=== PATIENT | male | born 1975 | race Caucasian/White ===

== ENCOUNTER 2017-04-14 15:37 | Emergency (ER) | payer MEDICARE, MEDICAID ==
--- NOTE | 2017-04-14 17:15 | EDM.PDOC ---
ED HPI GENERAL MEDICAL PROBLEM - General Chief Complaint: Skin Complaint Stated Complaint: RASH ON BACK Time Seen by Provider: 04/14/17 15:54 Source of Information: Reports: Patient History Limitations: Reports: No Limitations - History of Present Illness INITIAL COMMENTS - FREE TEXT/NARRATIVE: The patient presents with a rash to the low back. It is from this buttocks up his low back. He is on some new meds. He has no fever, chills, or cough. He has no chest pain or shortness of breath. He has not fallen. He does soil himself at times and his family notes some feces there at times. He does have some dysuria at times. Onset: Gradual Duration: Day(s): Location: Reports: Back Severity: Mild Improves with: Reports: None Worsens with: Reports: None Associated Symptoms: Reports: No Other Symptoms - Related Data Allergies Allergy/AdvReac Type Severity Reaction Status Date / Time aspartame Allergy Cannot Verified 01/22/15 13:34 Remember raspberry Allergy Cannot Verified 01/22/15 13:35 Remember red dye Allergy Cannot Verified 01/22/15 13:34 Remember Home Meds: Home Meds Cephalexin [Keflex] 500 mg PO Q6HR #28 capsule 04/14/17 [Rx] L.acidoph,Paracasei, B.lactis [Probiotic] 1 cap PO BID 04/14/17 [History] PARoxetine HCl [Paxil] 30 mg PO BEDTIME 04/14/17 [History] Topiramate 25 mg PO BID 04/14/17 [History] buPROPion [buPROPion XL] 150 mg PO DAILY 04/14/17 [History] Past Medical History Psychiatric History: Reports: Anxiety, Depression, Suicidal Ideation Other Psychiatric History: says he wants to and go to see his grandma Social & Family History - Tobacco Use Smoking Status *Q: Never Smoker - Caffeine Use Caffeine Use: Reports: Soda - Recreational Drug Use Recreational Drug Use: No ED ROS GENERAL - Review of Systems Review Of Systems: See Below Constitutional: Reports: No Symptoms HEENT: Reports: No Symptoms Respiratory: Reports: No Symptoms Cardiovascular: Reports: No Symptoms Endocrine: Reports: No Symptoms GI/Abdominal: Reports: No Symptoms : Reports: Dysuria ED EXAM, SKIN/RASH Exam: See Below Exam Limited By: No Limitations General Appearance: Alert, No Apparent Distress Ears: Normal External Exam Nose: Normal Inspection Throat/Mouth: Normal Inspection Head: Atraumatic, Normocephalic Neck: Normal Inspection Respiratory/Chest: No Respiratory Distress, Lungs Clear, Normal Breath Sounds Cardiovascular: Regular Rate, Rhythm, No Edema, No Murmur GI/Abdominal: Soft, Non-Tender, No Organomegaly, No Mass Back Exam: Other (Abrasion to his low back with eryehama.) Course - Vital Signs Last Recorded V/S: Last Vital Signs Temp 98.8 F 04/14/17 15:58 Pulse 124 H 04/14/17 15:58 Resp 20 04/14/17 15:58 BP 135/91 H 04/14/17 15:58 Pulse Ox 97 04/14/17 15:58 - Orders/Labs/Meds Orders: Active Orders 24 hr Category Date Time Status CRP [C-REACTIVE PROTEIN] [CHEM] Stat Lab 04/14/17 16:52 Received UA W/MICROSCOPIC [URIN] Stat Lab 04/14/17 16:16 Ordered Labs: Laboratory Tests 04/14/17 Range/Units 16:52 WBC 5.19 (4.23-9.07) K/mm3 RBC 5.63 (4.63-6.08) M/mm3 Hgb 16.3 (13.7-17.5) gm/L Hct 47.8 (40.1-51.0) % MCV 84.9 (79.0-92.2) fl MCH 29.0 (25.7-32.2) pg MCHC 34.1 (32.2-35.5) g/dl RDW Std Deviation 43.7 (35.1-43.9) fL Plt Count 215 (163-337) K/mm3 MPV 9.8 (9.4-12.3) fl Neut % (Auto) 66.6 (34.0-67.9) % Lymph % (Auto) 16.6 L (21.8-53.1) % [place] % (Auto) 15.8 H (5.3-12.2) % Eos % (Auto) 0.6 L (0.8-7.0) Baso % (Auto) 0.2 (0.1-1.2) % Neut # (Auto) 3.46 (1.78-5.38) K/mm3 Lymph # (Auto) 0.86 L (1.32-3.57) K/mm3 [place] # (Auto) 0.82 (0.30-0.82) K/mm3 Eos # (Auto) 0.03 L (0.04-0.54) K/mm3 Baso # (Auto) 0.01 (0.01-0.08) K/mm3 Manual Slide Review Normal smear - Re-Assessments/Exams Free Text/Narrative Re-Assessment/Exam: 04/14/17 17:12 His CBC looks good. This appears to be cellulitis. I will get him on some keflex and antibiotic ointment. Departure - Departure Time of Disposition: 17:15 Disposition: Home, Self-Care 01 Condition: Good Clinical Impression: Cellulitis Qualifiers: Site of cellulitis: trunk Site of cellulitis of trunk: back Qualified Code(s): L03.312 - Cellulitis of back [any part except buttock] - Discharge Information Prescriptions: Cephalexin [Keflex] 500 mg PO Q6HR #28 capsule Referrals: Maria Luz Brown, DIE REPAIR MACHINIST [Primary Care Provider] - 1 Week Additional Instructions: Take the keflex 4 times per day for 7 days. Clean the area with warm soapy water 2 times per day and apply antibiotic ointment after. Keep taking your meds but call Dr Harmon's office on Sunday. Please return if you are worse. - My Orders Last 24 Hours: My Active Orders 04/14/17 16:16 UA W/MICROSCOPIC [URIN] Stat 04/14/17 16:52 CRP [C-REACTIVE PROTEIN] [CHEM] Stat - Assessment/Plan Last 24 Hours: My Active Orders 04/14/17 16:16 UA W/MICROSCOPIC [URIN] Stat 04/14/17 16:52 CRP [C-REACTIVE PROTEIN] [CHEM] Stat
== END 2017-04-14 17:20 | disposition home or self-care (01) ==
LOC: JD.ED 15:37
DX: L03.312 Cellulitis of back [any part except buttock and flank] (principal); F32.9 Major depressive disorder, single episode, unspecified; F41.9 Anxiety disorder, unspecified; Z91.018 Allergy to other foods; Z79.899 Other long term (current) drug therapy
CPT/HCPCS: 36415; 85025; 86140; 99283

== ENCOUNTER 2017-05-10 20:06 | Emergency (ER) | payer MEDICARE, MEDICAID ==
[2017-05-10] MEDS ORDERED: Ondansetron 4 MG/2 ML SDV IVPUSH ONE (20:33)
[2017-05-10] MEDS ORDERED: HYDROmorphone 0.5 MG/0.5 ML SYRINGE IVPUSH ONE (20:40)
[2017-05-10] MEDS ORDERED: Lidocaine 2% Jelly 10 ML Urojet ONE (20:42)
[2017-05-10] MEDS ORDERED: Sodium Chloride 0.9% 1,000 ML IV SCH (20:45)
--- NOTE | 2017-05-10 20:55 | EDM.PDOC ---
ED HPI GENERAL MEDICAL PROBLEM - General Chief Complaint: Abdominal Pain Stated Complaint: ABDOMINAL PAIN DIARRHEA Time Seen by Provider: 05/10/17 20:16 Source of Information: Reports: Patient, Family (2 brothers, 1 sister) History Limitations: Reports: Other (The patient is cognitively impaired, but one of the brothers and his sister also have difficulty in restraining themselves, all talking at the same time) - History of Present Illness INITIAL COMMENTS - FREE TEXT/NARRATIVE: The patient apparently has chronic upper abdominal pain and chronic constipation. He has had watery diarrhea on and off for the past 2 weeks, and the family reports that he is upper abdomen appears to been distended for the past 1-2 days. He reported some dysuria yesterday, and developed nausea and emesis today. No recent fever. The family reports that the patient underwent a partial small bowel resection around 2012, followed by an abdominal wall herniorrhaphy in mid-2016. The patient's PCP is Maria Luz Brown. His Psychiatrist is Dr. Harmon. Middle Abdomen Pain Score (Numeric/FACES): 6 - Related Data Allergies Allergy/AdvReac Type Severity Reaction Status Date / Time aspartame Allergy Cannot Verified 05/10/17 20:18 Remember raspberry Allergy Cannot Verified 05/10/17 20:18 Remember red dye Allergy Cannot Verified 05/10/17 20:18 Remember Home Meds: Home Meds L.acidoph,Paracasei, B.lactis [Probiotic] 1 cap PO BID 04/14/17 [History] PARoxetine HCl [Paxil] 40 mg PO BEDTIME 04/14/17 [History] buPROPion [buPROPion XL] 300 mg PO DAILY 04/14/17 [History] Cholecalciferol (Vitamin D3) [Vitamin D3] 1,000 unit PO DAILY 05/10/17 [History] Docusate Sodium [Colace] 100 mg PO BID 05/10/17 [History] Gabapentin [Neurontin] 300 mg PO TID 05/10/17 [History] Past Medical History Cardiovascular History: Reports: PVD Musculoskeletal History: Reports: Other (See Below) (Scoliosis) Neurological History: Reports: Seizure (Absence seizures), Other (See Below) ( Congenital hydrocephalus) Psychiatric History: Reports: Anxiety, Depression, Suicidal Ideation 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 ED EXAM, GI/ABD - Physical Exam Exam: See Below Exam Limited By: No Limitations General Appearance: Alert, WD/WN, No Apparent Distress Eyes: Bilateral: Normal Appearance, EOMI Ears: Normal External Exam, Hearing Grossly Normal Nose: Normal Inspection, No Blood Throat/Mouth: Normal Inspection, Normal Lips, Normal Voice, No Airway Compromise Head: Atraumatic, Normocephalic Neck: Normal Inspection, Full Range of Motion Respiratory/Chest: No Respiratory Distress, Lungs Clear, Normal Breath Sounds, No Accessory Muscle Use Cardiovascular: Normal Peripheral Pulses, Regular Rate, Rhythm, No Edema, No Gallop, No JVD, No Murmur, No Rub GI/Abdominal Exam: Soft, No Organomegaly, No Distention, No Abnormal Bruit, No Mass, Tender (possible, midline), Abnormal Bowel Sounds (absent), Hernia ( Midline, associated with midline surgical wound. No incarceration palpated.). No: Rigid (Male) Exam: Deferred Rectal (Males) Exam: Deferred Back Exam: Normal Inspection, Full Range of Motion, NT Extremities: Normal Inspection, Normal Range of Motion, No Pedal Edema, Normal Capillary Refill Neurological: Alert, No Motor/Sensory Deficits Psychiatric: Normal Affect Skin Exam: Warm, Dry, Intact, Normal Color, No Rash Course - Vital Signs Last Recorded V/S: Last Vital Signs Temp 37.3 C 05/10/17 20:13 Pulse 110 H 05/10/17 20:13 Resp 18 05/10/17 20:13 BP 139/79 05/10/17 20:13 Pulse Ox 93 L 05/10/17 20:13 - Orders/Labs/Meds Orders: Active Orders 24 hr Category Date Time Status Abdomen Pelvis w Cont [CT] Stat Exams 05/10/17 20:33 Taken UA W/MICROSCOPIC [URIN] Stat Lab 05/10/17 21:02 Ordered Sodium Chloride 0.9% [Normal Saline] 1,000 ml Med 05/10/17 20:45 Active IV ASDIRECTED Sodium Chloride 0.9% [Saline Flush] Med 05/10/17 22:10 Active 10 ml FLUSH ONETIME PRN Medication Orders Sodium Chloride (Normal Saline) 1,000 mls @ 150 mls/hr IV ASDIRECTED JOSE Last Admin: 05/10/17 20:50 Dose: 150 mls/hr Sodium Chloride (Saline Flush) 10 ml FLUSH ONETIME PRN PRN Reason: IV FLUSH Last Admin: 05/10/17 22:46 Dose: 10 ml Labs: Laboratory Tests 05/10/17 05/10/17 05/10/17 Range/Units 20:50 20:50 21:02 WBC 5.91 (4.23-9.07) K/mm3 RBC 5.17 (4.63-6.08) M/mm3 Hgb 14.9 (13.7-17.5) gm/L Hct 45.4 (40.1-51.0) % MCV 87.8 (79.0-92.2) fl MCH 28.8 (25.7-32.2) pg MCHC 32.8 (32.2-35.5) g/dl RDW Std Deviation 47.0 H (35.1-43.9) fL Plt Count 244 (163-337) K/mm3 MPV 9.3 L (9.4-12.3) fl Neutrophils % (Manual) 89 H (40-60) % Band Neutrophils % 0 (0-10) % Lymphocytes % (Manual) 6 L (20-40) % Atypical Lymphs % 0 % Monocytes % (Manual) 4 (2-10) % Eosinophils % (Manual) 1 (0.8-7.0) % Basophils % (Manual) 0 L (0.2-1.2) Platelet Estimate Adequate RBC Morph Comment Normal Sodium 141 (136-145) mEq/L Potassium 3.9 (3.5-5.1) mEq/L Chloride 100 (98-107) mEq/L Carbon Dioxide 25 (21-32) mEq/L Anion Gap 19.9 H (5-15) BUN 15 (7-18) mg/dL Creatinine 1.1 (0.7-1.3) mg/dL Est Cr Clr Drug Dosing 103.79 mL/min Estimated GFR (MDRD) > 60 (>60) mL/min BUN/Creatinine Ratio 13.6 L (14-18) Glucose 142 H (74-106) mg/dL Calcium 9.6 (8.5-10.1) mg/dL Total Bilirubin 0.9 (0.2-1.0) mg/dL AST 12 L (15-37) U/L ALT 13 L (16-63) U/L Alkaline Phosphatase 84 (46-116) U/L Total Protein 7.9 (6.4-8.2) g/dl Albumin 4.2 (3.4-5.0) g/dl Globulin 3.7 gm/dL Albumin/Globulin Ratio 1.1 (1-2) Lipase 47 L (73-393) U/L Urine Color Yellow (Yellow) Urine Appearance Clear (Clear) Urine pH 5.5 (5.0-8.0) Ur Specific [place] > or = 1.030 (1.005-1.030) Urine Protein 1+ H (Negative) Urine Glucose (UA) Negative (Negative) Urine Ketones 2+ H (Negative) Urine Occult Blood Negative (Negative) Urine Nitrite Negative (Negative) Urine Bilirubin 2+ H (Negative) Urine Urobilinogen 1.0 (0.2-1.0) Ur Leukocyte Esterase Negative (Negative) Urine RBC 0-5 (0-5) /hpf Urine WBC 0-5 (0-5) /hpf Ur Epithelial Cells 0-5 (0-5) /hpf Amorphous Sediment Few H (NOT SEEN) /hpf Urine Bacteria Occasional (FEW) /hpf Urine Mucus Moderate H (FEW) /hpf Meds: Medications Generic Name Dose Route Start Last Admin Trade Name Freq PRN Reason Stop Dose Admin Sodium Chloride 1,000 mls @ 150 mls/hr 05/10/17 20:45 05/10/17 20:50 Normal Saline IV 150 mls/hr ASDIRECTED JOSE Administration Sodium Chloride 10 ml 05/10/17 22:10 05/10/17 22:46 Saline Flush FLUSH 10 ml ONETIME PRN Administration IV FLUSH Discontinued Medications Generic Name Dose Route Start Last Admin Trade Name Freq PRN Reason Stop Dose Admin Diatrizoate Meglum/Diatrizoate Sod 90 ml 05/10/17 22:10 05/10/17 22:46 Gastrografin 37% PO 05/10/17 22:11 90 ml ONETIME ONE Administration Hydromorphone HCl 0.5 mg 05/10/17 20:40 05/10/17 20:50 Dilaudid IVPUSH 05/10/17 20:41 0.5 mg ONETIME ONE Administration Piperacillin Sod/Tazobactam 100 mls @ 200 mls/hr 05/10/17 23:28 05/10/17 23: 36 Sod 4.5 gm/ Sodium Chloride IV 05/10/17 23:57 200 mls/hr ONETIME ONE Administration Iopamidol 125 ml 05/10/17 22:10 05/10/17 22:46 Isovue-300 (61%) IVPUSH 05/10/17 22:11 125 ml ONETIME ONE Administration Lidocaine HCl Confirm 05/10/17 20:42 05/10/17 20:55 Xylocaine 2% Jelly Administered 05/10/17 20:43 10 ml Dose Administration 10 ml .ROUTE .STK-MED ONE Ondansetron HCl 4 mg 05/10/17 20:33 05/10/17 20:50 Zofran IVPUSH 05/10/17 20:34 4 mg ONETIME ONE Administration - Re-Assessments/Exams Free Text/Narrative Re-Assessment/Exam: 05/10/17 23:25 Contacted by the [facility] at 23:18. The has a megacolon, atonic and distended throughout. His cecum measures 13 cm in diameter, his descending colon 10 cm, and his rectum 11 cm. There is wall thickening and pericolonic edema/inflammation. There is inspissated stool in the rectum. The colon is displacing the urinary bladder. There appears to be a postsurgical seroma, but also a possible abdominal wall abscess. The colon will need to be decompressed. 05/10/17 23:29 The family tells me that the patient was given Keflex QID from 04/14/2017 through 04/19/2017 for sialitis of the back. He was given a dose of Imodium on , and another dose yesterday, 05/09/2017. Based on this history, I believe the likelihood of the patient's megacolon being due to C. difficile is low. Over concern for bacterial translocation of the colon, I have ordered Zosyn 4.5 g. 05/10/17 23:46 Case discussed with [facility] surgeon Dr. Tejada at 23:38. He accepts the patient for direct admission. He agrees with Zosyn. The patient will need to be transported by ground, as it is too windy for helicopter, and there are no fixed wings in the area. The CT images have been pushed. 05/11/17 00:02 CT of the abdomen and pelvis with oral and IV contrast is read by [facility] as: 1. Diffusely distended/dilated colon and rectum which is filled with stool ( inspissated in the rectum) and gas, measuring up to 13 cm in diameter, consistent with atonic megacolon with ileus. 2. Colonic and rectal wall thickening with pericolonic and perirectal edema, most significant in the transverse colon and rectum. Question of early pneumatosis coli in the descending colon. The findings are suspicious for proctocolitis and evolving toxic megacolon. 3. Numerous gas-filled and distended small bowel loops measuring up to 3.4 cm in diameter leading to a nondistended segment of the distal ileum. The nondistended segment may be related to spasm. An anatomical stricture in this segment cannot be excluded. 4. A rim-enhancing 3.4 x 1.6 cm fluid collection in the right mid anterior abdominal wall, which may represent an abscess. Additional ventral abdominal wall fluid collection in the supra umbilical location measuring up to 6.4 x 3 cm , likely represent post surgical seromas. 5. No definite pneumatosis intestinalis or portal venous gas. 6. Small amount of ascites in the right inguinal canal. 7. Bilateral basal atelectasis. Departure - Departure Time of Disposition: 23:40 Disposition: DC/Tfer to Acute Hospital 02 Condition: Serious Clinical Impression: Megacolon - Discharge Information Referrals: Maria Luz Brown [employer] CUTTING MACHINE OPERATOR [Primary Care Provider] - - My Orders Last 24 Hours: My Active Orders 05/10/17 20:33 Abdomen Pelvis w Cont [CT] Stat 05/10/17 20:45 Sodium Chloride 0.9% [Normal Saline] 1,000 ml IV ASDIRECTED 05/10/17 21:02 UA W/MICROSCOPIC [URIN] Stat 05/10/17 22:10 Sodium Chloride 0.9% [Saline Flush] 10 ml FLUSH ONETIME PRN - Assessment/Plan Last 24 Hours: My Active Orders 05/10/17 20:33 Abdomen Pelvis w Cont [CT] Stat 05/10/17 20:45 Sodium Chloride 0.9% [Normal Saline] 1,000 ml IV ASDIRECTED 05/10/17 21:02 UA W/MICROSCOPIC [URIN] Stat 05/10/17 22:10 Sodium Chloride 0.9% [Saline Flush] 10 ml FLUSH ONETIME PRN
[2017-05-10] MEDS ORDERED: Sodium Chloride 0.9% 10 ML Syringe FLUSH PRN (22:10)
[2017-05-10] MEDS ORDERED: Diatrizoate Meglumine/Diatrizoate Sodium 37% 120 ML Bottle PO ONE (22:10)
[2017-05-10] MEDS ORDERED: Iopamidol 612 MG/ML 150 ML Bottle IVPUSH ONE (22:10)
[2017-05-10] MEDS ORDERED: Piperacillin/Tazobactam 4.5 GM in Sodium Chloride 0.9% 100 ML IV ONE (23:28)
--- NOTE | 2017-05-11 06:32 | CT ---
CT abdomen and pelvis: Multiple axial sections were obtained from above the dome of the diaphragm inferiorly through the pubic symphysis. Intravenous and oral contrast was utilized. Delayed images were also obtained through the abdomen and pelvis. Comparison: Prior CT abdomen studies of 01/25/15 and 03/23/16 is available. Findings: Mild bibasilar atelectasis is noted. Liver shows no focal parenchymal abnormality. Spleen appears within normal limits. Several surgical clips are seen anterior and slightly inferior to the spleen. Gallbladder contains no calcified gallstones. Increased density seen within the gallbladder most likely representing gallbladder sludge. Pancreas appears somewhat atrophied. Kidneys show symmetric contrast enhancement without hydronephrosis or mass. Delayed images show contrast excretion into both ureters and bladder without evidence of obstruction. Aorta shows no aneurysmal dilatation. No retroperitoneal adenopathy is seen. No pelvic mass or adenopathy is seen. Diffusely dilated and stool-filled colon and rectum are noted. Air-filled small bowel loops are seen which are mildly prominent most likely on an obstipative etiology due to the colonic process. Questionable pneumatosis coli is noted within the rectum. Soft tissue density is identified within the anterior abdominal wall. Two soft tissue abnormalities seen within the subcutaneous fat within the anterior abdominal wall. Largest measures approximately 6.7 cm and smaller measures approximately 3.2 cm. These are most likely due to previous abdominal wall hematomas. Small fluid collection is identified more superiorly within the abdominal wall to the right of midline measuring 3.3 cm most likely due to seroma. Bone window settings were reviewed which show scattered degenerative change within the spine. Impression: 1. Diffusely dilated stool filled colon and rectum. 2. Pneumatosis coli seen within the rectum. Developing toxic megacolon is a possibility. 3. Two soft tissue abnormalities within the anterior abdominal wall most likely representing previous abdominal wall hematomas. Probable seroma slightly more superiorly also within the abdominal wall. 4. Mildly dilated air-filled small bowel most likely on an obstipative basis from the colonic process. Diagnostic code #5 Agree with preliminary report issued by [employer] ([facility] preliminary report dictated on 05/11/17, 12:59 AM Central Time)
== END 2017-05-11 00:32 ==
LOC: JD.ED 20:06
DX: K59.39 Other megacolon (principal); Z88.8 Allergy status to other drugs, medicaments and biological substances; Z91.048 Other nonmedicinal substance allergy status; Z91.018 Allergy to other foods; Z79.899 Other long term (current) drug therapy
CPT/HCPCS: 36415; 74177; 80053; 81001; 83690; 85025; 96361; 96365; 96375; 99285; J1170; J2405; J2543; J7030; J7040; J7050; Q9963; Q9967

== ENCOUNTER 2017-09-12 15:50 | Emergency (ER) | payer MEDICARE, MEDICAID ==
--- NOTE | 2017-09-12 16:14 | EDM.PDOC ---
ED HPI GENERAL MEDICAL PROBLEM - General Chief Complaint: Abdominal Pain Stated Complaint: ABDOMINAL PAIN Time Seen by Provider: 09/12/17 16:14 Source of Information: Reports: Patient - History of Present Illness INITIAL COMMENTS - FREE TEXT/NARRATIVE: Patient was sent here from the walk-in clinic at [place] for evaluation of abdominal pain and questionable deformity to the left side of his abdomen. He is accompanied by 2 staff members from [facility]. Patient states that he has been having the pain for the past several days, he states it comes and goes. No change in eating habits. History of GERD, this wasn't removed improved with starting omeprazole about 6 weeks ago. He denies fever/chills. Denies any loss of appetite. No changes in stool in the colostomy bag. Patient has a history of colectomy 05/17/[address] Lomax at [facility]. 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 Abdominal Pain Score (Numeric/FACES): 10 - Related Data Allergies Allergy/AdvReac Type Severity Reaction Status Date / Time aspartame Allergy Cannot Verified 09/12/17 15:59 Remember raspberry Allergy Cannot Verified 09/12/17 15:59 Remember red dye Allergy Cannot Verified 09/12/17 15:59 Remember Home Meds: Home Meds L.acidoph,Paracasei, B.lactis [Probiotic] 1 cap PO DAILY 04/14/17 [History] PARoxetine HCl [Paxil] 30 mg PO BEDTIME 04/14/17 [History] Cholecalciferol (Vitamin D3) [Vitamin D3] 1,000 unit PO DAILY 05/10/17 [History] Docusate Sodium [Colace] 100 mg PO DAILY PRN 05/10/17 [History] Ferrous Gluconate. 1 tab PO DAILY 09/12/17 [History] Omeprazole 20 mg PO DAILY 09/12/17 [History] Past Medical History Cardiovascular History: Reports: PVD Gastrointestinal History: Reports: Chronic Constipation Musculoskeletal History: Reports: Other (See Below) Other Musculoskeletal History: scoliosis Neurological History: Reports: Seizure, Other (See Below) Other Neuro History: hydrocephalus congenital Psychiatric History: Reports: Anxiety, Depression, Suicidal Ideation Other Psychiatric History: mild MR Hematologic History: Reports: Other (See Below) Other Hematologic History: borderline lycopenia Oncologic (Cancer) History: Reports: Other (See Below) Other Oncologic History: pseudolymphoma - Past Surgical History GI Surgical History: Reports: Colostomy, Hernia, Abdominal, Small Bowel Social & Family History - Tobacco Use Smoking Status *Q: Never Smoker - Caffeine Use Caffeine Use: Reports: None - Living Situation & Occupation Living situation: Reports: Single, Alone, Other ([employer] staff 3X/day) Occupation: Disabled ED ROS GENERAL - Review of Systems Review Of Systems: See Below Constitutional: Denies: Fever, Chills, Malaise, Weakness, Fatigue, Decreased Appetite Respiratory: Reports: No Symptoms Cardiovascular: Reports: No Symptoms GI/Abdominal: Reports: Abdominal Pain, Other (small amount of mucus per rectum x2 today). 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) ED EXAM, GI/ABD - Physical Exam Exam: See Below Exam Limited By: Other (Patient is very social built, in no distress today.) General Appearance: Alert, WD/WN, No Apparent Distress Throat/Mouth: Normal Inspection, Normal Oropharynx Head: Atraumatic, Normocephalic Neck: Normal Inspection Respiratory/Chest: No Respiratory Distress, Lungs Clear, No Accessory Muscle Use Cardiovascular: Regular Rate, Rhythm, No Murmur GI/Abdominal Exam: Soft, Non-Tender, No Mass, Abnormal Bowel Sounds (Hyperactive ), Other (When standing patient has protrusion from the central abdomen symmetric bilaterally.) Neurological: Alert, Oriented Psychiatric: Normal Affect, Normal Mood Skin Exam: Warm, Dry, Intact Lymphatic: No Adenopathy Course - Vital Signs Last Recorded V/S: Last Vital Signs Temp 97.0 F 09/12/17 15:59 Pulse Resp BP 160/63 H 09/12/17 15:59 Pulse Ox - Orders/Labs/Meds Orders: Active Orders 24 hr Category Date Time Status UA W/MICROSCOPIC [URIN] Stat Lab 09/12/17 18:20 Ordered Labs: Laboratory Tests 09/12/17 09/12/17 09/12/17 Range/Units 17:55 17:55 17:55 WBC 3.11 L (4.23-9.07) K/mm3 RBC 5.42 (4.63-6.08) M/mm3 Hgb 12.4 L (13.7-17.5) gm/L Hct 40.4 (40.1-51.0) % MCV 74.5 L (79.0-92.2) fl MCH 22.9 L (25.7-32.2) pg MCHC 30.7 L (32.2-35.5) g/dl RDW Std Deviation 44.8 H (35.1-43.9) fL Plt Count 176 (163-337) K/mm3 MPV 9.7 (9.4-12.3) fl Neutrophils % (Manual) 48 (40-60) % Band Neutrophils % 0 (0-10) % Lymphocytes % (Manual) 39 (20-40) % Atypical Lymphs % 0 % Monocytes % (Manual) 10 (2-10) % Eosinophils % (Manual) 1 (0.8-7.0) % Basophils % (Manual) 2 H (0.2-1.2) Platelet Estimate Adequate Plt Morphology Comment Normal Polychromasia 1+ slight Hypochromasia 1+ slight Poikilocytosis 1+ slight Anisocytosis 1+ slight Microcytosis 1+ slight Macrocytosis 1+ slight RBC Morph Comment Abnormal Sodium 135 L (136-145) mEq/L Potassium 4.2 (3.5-5.1) mEq/L Chloride 101 (98-107) mEq/L Carbon Dioxide 27 (21-32) mEq/L Anion Gap 11.2 (5-15) BUN 20 H (7-18) mg/dL Creatinine 1.0 (0.7-1.3) mg/dL Est Cr Clr Drug Dosing 116.19 mL/min Estimated GFR (MDRD) > 60 (>60) mL/min BUN/Creatinine Ratio 20.0 H (14-18) Glucose 93 (74-106) mg/dL Calcium 8.6 (8.5-10.1) mg/dL Iron 30 L (65-175) ug/dL Total Bilirubin 0.4 (0.2-1.0) mg/dL AST 17 (15-37) U/L ALT 20 (16-63) U/L Alkaline Phosphatase 92 (46-116) U/L C-Reactive Protein < 0.2 (<1.0) mg/dL Total Protein 8.2 (6.4-8.2) g/dl Albumin 3.8 (3.4-5.0) g/dl Globulin 4.4 gm/dL Albumin/Globulin Ratio 0.9 L (1-2) Lipase 84 (73-393) U/L Urine Color (Yellow) Urine Appearance (Clear) Urine pH (5.0-8.0) Ur Specific [place] (1.005-1.030) Urine Protein (Negative) Urine Glucose (UA) (Negative) Urine Ketones (Negative) Urine Occult Blood (Negative) Urine Nitrite (Negative) Urine Bilirubin (Negative) Urine Urobilinogen (0.2-1.0) Ur Leukocyte Esterase (Negative) Urine RBC (0-5) /hpf Urine WBC (0-5) /hpf Ur Epithelial Cells (0-5) /hpf Urine Bacteria (FEW) /hpf Hyaline Casts (0-5) /lpf Urine Mucus (FEW) /hpf /09/22 Range/Units 18:20 WBC (4.23-9.07) K/mm3 RBC (4.63-6.08) M/mm3 Hgb (13.7-17.5) gm/L Hct (40.1-51.0) % MCV (79.0-92.2) fl MCH (25.7-32.2) pg MCHC (32.2-35.5) g/dl RDW Std Deviation (35.1-43.9) fL Plt Count (163-337) K/mm3 MPV (9.4-12.3) fl Neutrophils % (Manual) (40-60) % Band Neutrophils % (0-10) % Lymphocytes % (Manual) (20-40) % Atypical Lymphs % % Monocytes % (Manual) (2-10) % Eosinophils % (Manual) (0.8-7.0) % Basophils % (Manual) (0.2-1.2) Platelet Estimate Plt Morphology Comment Polychromasia Hypochromasia Poikilocytosis Anisocytosis Microcytosis Macrocytosis RBC Morph Comment Sodium (136-145) mEq/L Potassium (3.5-5.1) mEq/L Chloride (98-107) mEq/L Carbon Dioxide (21-32) mEq/L Anion Gap (5-15) BUN (7-18) mg/dL Creatinine (0.7-1.3) mg/dL Est Cr Clr Drug Dosing mL/min Estimated GFR (MDRD) (>60) mL/min BUN/Creatinine Ratio (14-18) Glucose (74-106) mg/dL Calcium (8.5-10.1) mg/dL Iron (65-175) ug/dL Total Bilirubin (0.2-1.0) mg/dL AST (15-37) U/L ALT (16-63) U/L Alkaline Phosphatase (46-116) U/L C-Reactive Protein (<1.0) mg/dL Total Protein (6.4-8.2) g/dl Albumin (3.4-5.0) g/dl Globulin gm/dL Albumin/Globulin Ratio (1-2) Lipase (73-393) U/L Urine Color Yellow (Yellow) Urine Appearance Clear (Clear) Urine pH 6.0 (5.0-8.0) Ur Specific [place] > or = 1.030 (1.005-1.030) Urine Protein Negative (Negative) Urine Glucose (UA) Negative (Negative) Urine Ketones Negative (Negative) Urine Occult Blood Negative (Negative) Urine Nitrite Negative (Negative) Urine Bilirubin Negative (Negative) Urine Urobilinogen 0.2 (0.2-1.0) Ur Leukocyte Esterase Negative (Negative) Urine RBC 0-5 (0-5) /hpf Urine WBC 0-5 (0-5) /hpf Ur Epithelial Cells 0-5 (0-5) /hpf Urine Bacteria Not seen (FEW) /hpf Hyaline Casts 0-5 (0-5) /lpf Urine Mucus Moderate H (FEW) /hpf Meds: Medications Discontinued Medications Generic Name Dose Route Start Last Admin Trade Name Freq PRN Reason Stop Dose Admin Diatrizoate Meglum/Diatrizoate Sod 45 ml 09/12/17 18:07 09/12/17 18:57 Gastrografin 37% PO 09/12/17 18:08 45 ml ONETIME ONE Administration Iopamidol 125 ml 09/12/17 18:07 09/12/17 18:58 Isovue-300 (61%) IVPUSH 09/12/17 18:08 125 ml ONETIME ONE Administration Sodium Chloride 20 ml 09/12/17 18:07 Normal Saline FLUSH 09/12/17 18:08 ONETIME ONE - Re-Assessments/Exams Free Text/Narrative Re-Assessment/Exam: Patient's abdomen is nontender during exam. WBC 3110. CRP <0.2. Hemoglobin improving at 12.4. He will continue on his iron. Mildly increased at 1.0, BUN is 20. CT demonstrates the previous colectomy with colostomy. Peristomal hernia is seen containing nondilated small bowel. Bowel wall thickening within residual rectum is noted. No other abnormality on CT. Recommend increasing fluids, very bland diet over the next few days. If patient continues to report this pain is quite possible it is coming from his hernia so may have to consult with Dr. Lomax for this. 09/12/17 20:37 Departure - Departure Time of Disposition: 19:54 Disposition: Home, Self-Care 01 Condition: Good Clinical Impression: Abdominal pain Qualifiers: Abdominal location: generalized Qualified Code(s): R10.84 - Generalized abdominal pain - Discharge Information Instructions: Abdominal Pain, Adult, [id number] Referrals: Maria Luz Brown [employer] TECHNICIAN [Primary Care Provider] - Forms: ED Department Discharge Additional Instructions: You were evaluated in the emergency room for evaluation of abdominal pain. Your labwork demonstrates no sign of infection. Your anemia is improving. CT demonstrated the hernia near your stoma but no other abnormality. I recommend you have a very bland diet for the next 2 days, no sugar/spice/ dairy. You need to increase your fluid intake. Continue your omeprazole and daily probiotic. Follow-up in the clinic if symptoms should worsen or persist or certainly return to emergency room if needed. - My Orders Last 24 Hours: My Active Orders 09/12/17 18:20 UA W/MICROSCOPIC [URIN] Stat - Assessment/Plan Last 24 Hours: My Active Orders 09/12/17 18:20 UA W/MICROSCOPIC [URIN] Stat
[2017-09-12] MEDS ORDERED: Diatrizoate Meglumine/Diatrizoate Sodium 37% 120 ML Bottle PO ONE (18:07)
[2017-09-12] MEDS ORDERED: Iopamidol 612 MG/ML 150 ML Bottle IVPUSH ONE (18:07)
[2017-09-12] MEDS ORDERED: Sodium Chloride 0.9% 20 ML SDV FLUSH ONE (18:07)
--- NOTE | 2017-09-12 19:24 | CT ---
CT abdomen and pelvis Technique: Multiple axial sections were obtained from the top of the liver inferiorly through the pubic symphysis. Intravenous and oral contrast was utilized. Findings: Previous colectomy is noted with colostomy. Wall thickening is noted within the remaining rectum. There is a peristomal hernia which contains nondilated small bowel. Small subpleural nodule is noted within the right lung base. This is not identified on prior CT exam of 05/10/17 and this is most likely incidental and due to slight atelectasis. Liver shows no focal parenchymal abnormality. Spleen appears within normal limits. Adrenal glands show no nodule. Pancreas is within normal limits. Kidneys show symmetric contrast enhancement without hydronephrosis or mass. Aorta shows no aneurysmal dilatation. No retroperitoneal adenopathy or mesenteric abnormalities are seen. No pelvic mass or adenopathy is seen. No bowel dilatation is appreciated. Delayed images through the bladder show contrast within the distal ureters as well as bladder. Bone window settings were reviewed which shows scattered degenerative change within the spine and mild scoliosis. Impression: 1. Previous colectomy with colostomy. Peristomal hernia is seen containing nondilated small bowel. 2. Bowel wall thickening within the residual rectum is noted. This is likely incidental. 3. Nothing acute is otherwise seen on CT study of the abdomen and pelvis. Diagnostic code #2
== END 2017-09-12 20:00 | disposition home or self-care (01) ==
LOC: JD.ED 15:50
DX: R10.84 Generalized abdominal pain (principal); Z91.018 Allergy to other foods
CPT/HCPCS: 36415; 74177; 80053; 81001; 83540; 83690; 85007; 85027; 86140; 99284; Q9963; Q9967

== ENCOUNTER 2017-10-04 21:34 | Inpatient (IN) | payer MEDICARE, MEDICAID ==
--- NOTE | 2017-10-04 22:33 | EDM.PDOC ---
ED HPI GENERAL MEDICAL PROBLEM - General Chief Complaint: Abdominal Pain Stated Complaint: ABDOMINAL CHECK Time Seen by Provider: 10/04/17 22:28 Source of Information: Reports: Patient History Limitations: Reports: No Limitations - History of Present Illness INITIAL COMMENTS - FREE TEXT/NARRATIVE: Patient is a 42-year-old male with a history of chronic constipation and bowel obstructions requiring total colectomy May 2017. Patient has a ileostomy bag in place with liquid stool present. Family is concerned that the patient complained of abdominal discomfort with decreased hard stool within the bag throughout the course the day. He's vomited twice 2 hours after eating dinner. There was no fecal matter present. Nor any blood present. Staff has noticed as well increased air within the bag. He's had no recent documented fever. Patient does not appear in acute distress during examination. He is acting appropriate per staff and mother. - Related Data Allergies Allergy/AdvReac Type Severity Reaction Status Date / Time aspartame Allergy Cannot Verified 10/05/17 09:00 Remember chloral hydrate Allergy Hyperactivi Verified 10/05/17 09:00 ty raspberry Allergy Cannot Verified 10/05/17 09:00 Remember red dye Allergy Cannot Verified 10/05/17 09:00 Remember Home Meds: Home Meds L.acidoph,Paracasei, B.lactis [Probiotic] 1 cap PO DAILY 04/14/17 [History] PARoxetine HCl [Paxil] 30 mg PO DAILY 04/14/17 [History] Cholecalciferol (Vitamin D3) [Vitamin D3] 1,000 unit PO DAILY 05/10/17 [History] Past Medical History Cardiovascular History: Reports: PVD Gastrointestinal History: Reports: Chronic Constipation Musculoskeletal History: Reports: Other (See Below) Other Musculoskeletal History: scoliosis Neurological History: Reports: Seizure, Other (See Below) Other Neuro History: hydrocephalus congenital Psychiatric History: Reports: Anxiety, Depression, Suicidal Ideation Other Psychiatric History: mild MR Hematologic History: Reports: Other (See Below) Other Hematologic History: borderline lycopenia Oncologic (Cancer) History: Reports: Other (See Below) Other Oncologic History: pseudolymphoma - Past Surgical History GI Surgical History: Reports: Colostomy, Hernia, Abdominal, Small Bowel Social & Family History - Tobacco Use Smoking Status *Q: Never Smoker - Caffeine Use Caffeine Use: Reports: None - Recreational Drug Use Recreational Drug Use: No - Living Situation & Occupation Living situation: Reports: Single, Alone, Other ([employer] staff 3X/day) Occupation: Disabled ED ROS GENERAL - Review of Systems Review Of Systems: See Below Constitutional: Denies: Fever, Chills, Decreased Appetite Respiratory: Reports: No Symptoms Cardiovascular: Reports: No Symptoms GI/Abdominal: Reports: Abdominal Pain, Constipation, Diarrhea, Nausea, Vomiting. Denies: Black Stool, Bloody Stool, Decreased Appetite, Hematemesis, Hematochezia, Melena : Reports: No Symptoms Musculoskeletal: Reports: No Symptoms Neurological: Reports: No Symptoms ED EXAM, GI/ABD - Physical Exam Exam: See Below Exam Limited By: No Limitations General Appearance: Alert, WD/WN, No Apparent Distress Ears: Hearing Grossly Normal Nose: Normal Inspection Throat/Mouth: Normal Voice, No Airway Compromise Neck: Normal Inspection, Supple Respiratory/Chest: No Respiratory Distress, Lungs Clear, Normal Breath Sounds Cardiovascular: Normal Peripheral Pulses, Regular Rate, Rhythm GI/Abdominal Exam: Soft, Non-Tender, No Organomegaly, No Distention, Abnormal Bowel Sounds (Hyperactive), Other (colostomy bag in place with liquid stool present. No blood present.) Neurological: Alert, Oriented, CN II-XII Intact, Normal Cognition (Per family. ) Psychiatric: Normal Affect, Normal Mood Skin Exam: Warm, Dry, Intact, Normal Color Course - Vital Signs Last Recorded V/S: Last Vital Signs Temp 98.8 F 10/05/17 20:37 Pulse 80 10/05/17 20:37 Resp 14 10/05/17 20:37 BP 119/63 10/05/17 20:37 Pulse Ox 99 10/05/17 20:37 - Orders/Labs/Meds Orders: Active Orders 24 hr Category Date Time Status Gastrointestinal Tube Mgmt [RC] 04,10,16,22 Care 10/05/17 00:09 Active Abdomen 2V AP Flat Upright [CR] Stat Exams 10/04/17 23:12 Taken Abdomen Pelvis w Cont [CT] Stat Exams 10/05/17 00:25 Taken Sodium Chloride 0.9% [Normal Saline] 1,000 ml Med 10/04/17 23:30 Active IV ASDIRECTED Sodium Chloride 0.9% [Saline Flush] Med 10/04/17 23:12 Active 10 ml FLUSH ASDIRECTED PRN Peripheral IV Insertion Adult [OM.PC] Routine Oth 10/04/17 23:12 Ordered Medication Orders Enoxaparin Sodium (Lovenox) 40 mg SUBCUT DAILY@1999 [facility] Last Admin: 10/05/17 20:41 Dose: 40 mg Hydromorphone HCl (Dilaudid) 0.5 mg IVPUSH Q2H PRN PRN Reason: Pain Sodium Chloride (Normal Saline) 1,000 mls @ 125 mls/hr IV ASDIRECTED [facility] Last Admin: 10/05/17 16:12 Dose: 125 mls/hr Infusion: 10/05/17 16:06 Dose: 125 mls/hr Admin: 10/05/17 08:06 Dose: 125 mls/hr Infusion: 10/05/17 07:44 Dose: 125 mls/hr Admin: 10/04/17 23:44 Dose: 125 mls/hr Ondansetron HCl (Zofran) 4 mg IVPUSH Q4HR PRN PRN Reason: Nausea Pantoprazole Sodium (Protonix Iv) 40 mg IVPUSH ACBREAKFAST [facility] Last Admin: 10/05/17 08:27 Dose: 40 mg Sodium Chloride (Saline Flush) 10 ml FLUSH ASDIRECTED PRN PRN Reason: Keep Vein Open Last Admin: 10/04/17 23:46 Dose: 10 ml Labs: Laboratory Tests 10/04/17 10/04/17 Range/Units 22:30 23:23 WBC 5.95 (4.23-9.07) K/mm3 RBC 5.73 (4.63-6.08) M/mm3 Hgb 13.6 L (13.7-17.5) gm/L Hct 42.5 (40.1-51.0) % MCV 74.2 L (79.0-92.2) fl MCH 23.7 L (25.7-32.2) pg MCHC 32.0 L (32.2-35.5) g/dl RDW Std Deviation 47.1 H (35.1-43.9) fL Plt Count 175 (163-337) K/mm3 MPV 9.1 L (9.4-12.3) fl Neutrophils % (Manual) 73 H (40-60) % Band Neutrophils % 0 (0-10) % Lymphocytes % (Manual) 15 L (20-40) % Atypical Lymphs % 0 % Monocytes % (Manual) 11 H (2-10) % Eosinophils % (Manual) 1 (0.8-7.0) % Basophils % (Manual) 0 L (0.2-1.2) Platelet Estimate Adequate Plt Morphology Comment Normal Anisocytosis 1+ slight Microcytosis 2+ moderate RBC Morph Comment Not Reportable Sodium 133 L (136-145) mEq/L Potassium 4.0 (3.5-5.1) mEq/L Chloride 98 (98-107) mEq/L Carbon Dioxide 23 (21-32) mEq/L Anion Gap 16.0 H (5-15) BUN 14 (7-18) mg/dL Creatinine 1.0 (0.7-1.3) mg/dL Est Cr Clr Drug Dosing 119.35 mL/min Estimated GFR (MDRD) > 60 (>60) mL/min BUN/Creatinine Ratio 14.0 (14-18) Glucose 104 (74-106) mg/dL Calcium 9.2 (8.5-10.1) mg/dL Total Bilirubin 1.0 (0.2-1.0) mg/dL AST 14 L (15-37) U/L ALT 16 (16-63) U/L Alkaline Phosphatase 107 (46-116) U/L C-Reactive Protein 0.5 (<1.0) mg/dL Total Protein 8.4 H (6.4-8.2) g/dl Albumin 4.0 (3.4-5.0) g/dl Globulin 4.4 gm/dL Albumin/Globulin Ratio 0.9 L (1-2) Meds: Medications Generic Name Dose Route Start Last Admin Trade Name Freq PRN Reason Stop Dose Admin Enoxaparin Sodium 40 mg 10/05/17 20:00 10/05/17 20:41 Lovenox SUBCUT 40 mg DAILY@1999 JOSE Administration Hydromorphone HCl 0.5 mg 10/05/17 05:51 Dilaudid IVPUSH Q2H PRN Pain Sodium Chloride 1,000 mls @ 125 mls/hr 10/04/17 23:30 10/05/17 16:12 Normal Saline IV 125 mls/hr ASDIRECTED JOSE Administration Ondansetron HCl 4 mg 10/05/17 05:51 Zofran IVPUSH Q4HR PRN Nausea Pantoprazole Sodium 40 mg 10/05/17 06:00 10/05/17 08:27 Protonix Iv IVPUSH 40 mg ACBREAKFAST JOSE Administration Sodium Chloride 10 ml 10/04/17 23:12 10/04/17 23:46 Saline Flush FLUSH 10 ml ASDIRECTED PRN Administration Keep Vein Open Discontinued Medications Generic Name Dose Route Start Last Admin Trade Name Abdelrahmanq PRN Reason Stop Dose Admin Diatrizoate Meglum/Diatrizoate Sod 90 ml 10/05/17 01:37 10/05/17 02:29 Gastrografin 37% PO 10/05/17 01:38 45 ml ONETIME ONE Administration Hydromorphone HCl 0.5 mg 10/05/17 00:36 10/05/17 01:17 Dilaudid IVPUSH 10/05/17 00:37 0.5 mg ONETIME ONE Administration Iopamidol 125 ml 10/05/17 01:37 10/05/17 02:29 Isovue-300 (61%) IVPUSH 10/05/17 01:38 125 ml ONETIME ONE Administration Lorazepam 1 mg 10/05/17 00:54 10/05/17 01:08 Ativan IVPUSH 10/05/17 00:55 1 mg ONETIME ONE Administration Ondansetron HCl 4 mg 10/04/17 23:12 10/04/17 23:45 Zofran IVPUSH 10/04/17 23:13 4 mg ONETIME ONE Administration Pantoprazole Sodium 40 mg 10/05/17 00:48 10/05/17 01:17 Protonix Iv IVPUSH 10/05/17 00:49 40 mg ONETIME ONE Administration - Re-Assessments/Exams Free Text/Narrative Re-Assessment/Exam: IV established with Zofran 4 mg IVP. Initial labs and studies ordered include: CBC, chem 14, CRP, and 2 view flat and upright of the abdomen. 10/05/17 00:13 X-ray of the abdomen reviewed with Dr. Calabrese. Findings concerning for partial small bowel obstruction with history of liquid stools. Suggested admit to the hospital with NG tube placement. I have ordered a NG tube on low intermittent suction. [address] Foy midwife practitioner General Surgeon. He has agreed to admit the patient to his service. Requested bridge orders. Nothing by mouth, normal saline IV 125 mL per hour, Protonix 40 mg every day IVP, Zofran 4 mg IVP every 4 hours when necessary nausea vomiting, Dilaudid 0.5 mg IVP every 2 hours when necessary pain, strict I&O, repeat 2 view abdomen in the a.m. at 7 AM. Request strict I&O's thus if patient is incontinent to urine and is not able to provide reliable monitoring her urine for will be required. I have changed the NG tube to low continuous suction. CT of the abdomen and pelvis has been ordered. 10/05/17 00:55 Patient's apprehensive about getting the NG tube. I've ordered 1 mg IVP Of Ativan I have discussed the patient with Dr. Calabrese midwife practitioner ED provider. Once CT is completed he will review the results and if anything's concerning he will contact the general surgeon on-call. Departure - Departure Time of Disposition: 00:15 Disposition: Admitted As Inpatient 67 Condition: Good Clinical Impression: Partial small bowel obstruction - Discharge Information - My Orders Last 24 Hours: My Active Orders 10/04/17 23:12 Abdomen 2V AP Flat Upright [CR] Stat Sodium Chloride 0.9% [Saline Flush] 10 ml FLUSH ASDIRECTED PRN Peripheral IV Insertion Adult [OM.PC] Routine 10/04/17 23:30 Sodium Chloride 0.9% [Normal Saline] 1,000 ml IV ASDIRECTED 10/05/17 00:09 Gastrointestinal Tube Mgmt [RC] ,,,10/05/17 00:25 Abdomen Pelvis w Cont [CT] Stat - Assessment/Plan Last 24 Hours: My Active Orders 10/04/17 23:12 Abdomen 2V AP Flat Upright [CR] Stat Sodium Chloride 0.9% [Saline Flush] 10 ml FLUSH ASDIRECTED PRN Peripheral IV Insertion Adult [OM.PC] Routine 10/04/17 23:30 Sodium Chloride 0.9% [Normal Saline] 1,000 ml IV ASDIRECTED 10/05/17 00:09 Gastrointestinal Tube Mgmt [RC] ,,,10/05/17 00:25 Abdomen Pelvis w Cont [CT] Stat
[2017-10-04] MEDS ORDERED: Sodium Chloride 0.9% 10 ML Syringe FLUSH PRN (23:12)
[2017-10-04] MEDS ORDERED: Ondansetron 4 MG/2 ML SDV IVPUSH ONE (23:12)
[2017-10-04] MEDS: Sodium Chloride 0.9% 1,000 ML IV SCH (23:44)
[2017-10-05] MEDS ORDERED: HYDROmorphone 0.5 MG/0.5 ML SYRINGE IVPUSH ONE (00:36)
[2017-10-05] MEDS ORDERED: Pantoprazole 40 MG Vial IVPUSH ONE (00:48)
[2017-10-05] MEDS ORDERED: LORazepam 2 MG/ML SDV IVPUSH ONE (00:54)
[2017-10-05] MEDS ORDERED: Diatrizoate Meglumine/Diatrizoate Sodium 37% 120 ML Bottle PO ONE (01:37)
[2017-10-05] MEDS ORDERED: Iopamidol 612 MG/ML 150 ML Bottle IVPUSH ONE (01:37)
[2017-10-05] MEDS ORDERED: Ondansetron 4 MG/2 ML SDV IVPUSH PRN (05:51)
[2017-10-05] MEDS ORDERED: HYDROmorphone 0.5 MG/0.5 ML Syringe IVPUSH PRN (05:51)
[2017-10-05] MEDS: Sodium Chloride 0.9% 1,000 ML IV SCH ×2 (08:06→16:12)
[2017-10-05] MEDS: Pantoprazole 40 MG Vial IVPUSH SCH (08:27)
--- NOTE | 2017-10-05 10:50 | PCM.HP ---
H&P History of Present Illness - General Date of Service: 10/05/17 Admit Problem/Dx: Admission Diagnosis/Problem Admission Diagnosis/Problem Small bowel obstruction Source of Information: Patient, Family, Old Records History Limitations: Reports: Other (Mental retardation) - History of Present Illness Initial Comments - Free Text/Narative: 42 yo male, h/o mental retardation, requiring assisted living care, with history of multiple prior abdominal operations, admitted early this morning with small bowel obstruction. 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 He was see in the ER a few weeks ago for abdominal pain, but CT scan was unremarkable at that time, and the patient was discharged home from the ER. The CT scan did demonstrated a peristomal hernia. During this episode, the patient presented with abdominal pain, located in the mid-abdomen, associated with nausea and emesis x2. Work-up in the ER showed a small bowel obstruction. Labs, including WBC, were unremarkable. Abdominal X- ray and CT scan were performed. An NG tube was placed, and the patient was admitted overnight. Since admission, the patient reports improvement in pain. Obtaining an accurate history from the patient difficult due to the patient's MR. The patient's mother was present to help answer questions. - Related Data Allergies/Adverse Reactions: Allergies Allergy/AdvReac Type Severity Reaction Status Date / Time aspartame Allergy Cannot Verified 10/05/17 09:00 Remember chloral hydrate Allergy Hyperactivi Verified 10/05/17 09:00 ty raspberry Allergy Cannot Verified 10/05/17 09:00 Remember red dye Allergy Cannot Verified 10/05/17 09:00 Remember Home Medications: Home Meds L.acidoph,Paracasei, B.lactis [Probiotic] 1 cap PO DAILY 04/14/17 [History] PARoxetine HCl [Paxil] 30 mg PO DAILY 04/14/17 [History] Cholecalciferol (Vitamin D3) [Vitamin D3] 1,000 unit PO DAILY 05/10/17 [History] Past Medical History HEENT History: Reports: Other (See Below) Other HEENT History: pt has had tubes in his ears bilaterally Cardiovascular History: Reports: PVD Gastrointestinal History: Reports: Chronic Constipation Musculoskeletal History: Reports: Other (See Below) Other Musculoskeletal History: scoliosis Neurological History: Reports: Seizure, Other (See Below) Other Neuro History: hydrocephalus congenital Psychiatric History: Reports: Anxiety, Depression, Suicidal Ideation Other Psychiatric History: mild MR Hematologic History: Reports: Other (See Below) Other Hematologic History: borderline lycopenia Oncologic (Cancer) History: Reports: Other (See Below) Other Oncologic History: pseudolymphoma - Infectious Disease History Infectious Disease History: Reports: Chicken Pox, MRSA - Past Surgical History Head Surgeries/Procedures: Reports: None HEENT Surgical History: Reports: None Cardiovascular Surgical History: Reports: None GI Surgical History: Reports: Colostomy, Hernia, Abdominal, Small Bowel Neurological Surgical History: Reports: None Oncologic Surgical History: Reports: None Social & Family History - Family History Family Medical History: Noncontributory HEENT: Reports: None - Tobacco Use Smoking Status *Q: Never Smoker - Caffeine Use Caffeine Use: Reports: None - Recreational Drug Use Recreational Drug Use: No - Living Situation & Occupation Living situation: Reports: Single, Alone (Patient lives by himself here in [place], but receives caregiver help 3x/week, for assistance with his ileostomy.), Other (Caregiving staff 3X/day) Occupation: Disabled H&P Review of Systems - Review of Systems: Review Of Systems: ROS reveals no pertinent complaints other than HPI. Exam - Exam Exam: See Below - Vital Signs Vital Signs: Last Vital Signs Temp 37.4 C 10/05/17 08:26 Pulse 86 10/05/17 08:14 Resp 16 10/05/17 08:14 BP 118/74 10/05/17 08:14 Pulse Ox 99 10/05/17 08:14 Weight: 97.432 kg - Exam General: Alert, Cooperative HEENT: Other (NG tube in place, with nonbilious fluid in the canister. ) Lungs: Clear to Auscultation, Normal Respiratory Effort Cardiovascular: Regular Rate, Regular Rhythm, Normal S1, Normal S2. No: Systolic Murmur GI/Abdominal Exam: Other (Abdomen is soft, nondistended, nontender. The ileostomy appears pink with brown fluid and air in the bag. No obvious hernia palpable on exam.) Extremities: Normal Inspection Neuro Extensive - Mental Status: Other (Patient with sometimes irrelevant comments or inappropriate answers to questions asked.) Psychiatric: Normal Mood - Patient Data Lab Results Last 24 hrs: Laboratory Results - last 24 hr 10/04/17 10/04/17 Range/Units 22:30 23:23 WBC 5.95 (4.23-9.07) K/mm3 RBC 5.73 (4.63-6.08) M/mm3 Hgb 13.6 L (13.7-17.5) gm/L Hct 42.5 (40.1-51.0) % MCV 74.2 L (79.0-92.2) fl MCH 23.7 L (25.7-32.2) pg MCHC 32.0 L (32.2-35.5) g/dl RDW Std Deviation 47.1 H (35.1-43.9) fL Plt Count 175 (163-337) K/mm3 MPV 9.1 L (9.4-12.3) fl Neutrophils % (Manual) 73 H (40-60) % Band Neutrophils % 0 (0-10) % Lymphocytes % (Manual) 15 L (20-40) % Atypical Lymphs % 0 % Monocytes % (Manual) 11 H (2-10) % Eosinophils % (Manual) 1 (0.8-7.0) % Basophils % (Manual) 0 L (0.2-1.2) Platelet Estimate Adequate Plt Morphology Comment Normal Anisocytosis 1+ slight Microcytosis 2+ moderate RBC Morph Comment Not Reportable Sodium 133 L (136-145) mEq/L Potassium 4.0 (3.5-5.1) mEq/L Chloride 98 (98-107) mEq/L Carbon Dioxide 23 (21-32) mEq/L Anion Gap 16.0 H (5-15) BUN 14 (7-18) mg/dL Creatinine 1.0 (0.7-1.3) mg/dL Est Cr Clr Drug Dosing 119.35 mL/min Estimated GFR (MDRD) > 60 (>60) mL/min BUN/Creatinine Ratio 14.0 (14-18) Glucose 104 (74-106) mg/dL Calcium 9.2 (8.5-10.1) mg/dL Total Bilirubin 1.0 (0.2-1.0) mg/dL AST 14 L (15-37) U/L ALT 16 (16-63) U/L Alkaline Phosphatase 107 (46-116) U/L C-Reactive Protein 0.5 (<1.0) mg/dL Total Protein 8.4 H (6.4-8.2) g/dl Albumin 4.0 (3.4-5.0) g/dl Globulin 4.4 gm/dL Albumin/Globulin Ratio 0.9 L (1-2) Result Diagrams: 10/04/17 22:30 10/04/17 23:23 - Problem List (1) Small bowel obstruction SNOMED Code(s): 809374101 ICD Code: K56.609 - UNSP INTESTNL OBST, UNSP TO PARTIAL VERSUS COMPLETE OBST Status: Acute Current Visit: Yes Problem List Initiated/Reviewed/Updated: Yes Orders Last 24hrs: Active Orders 24 hr Category Date Time Status Admission Status [Patient Status] [ADT] Routine ADT 10/05/17 04:06 Active Gastrointestinal Tube Mgmt [RC] 04,10,16,22 Care 10/05/17 00:09 Active Intake and Output Strict [RC] Q4HR Care 10/05/17 05:48 Active Up With Assistance [RC] ASDIRECTED Care 10/05/17 05:48 Active NPO Now [Nothing per Oral Now Diet] [DIET] Diet 10/05/17 Breakfast Active Abdomen 2V AP Flat Upright [CR] Stat Exams 10/04/17 23:12 Taken Abdomen 2V AP Flat Upright [CR] Timed Exams 10/05/17 07:00 Ordered Abdomen Pelvis w Cont [CT] Stat Exams 10/05/17 00:25 Taken HYDROmorphone [Dilaudid] Med 10/05/17 05:51 Active 0.5 mg IVPUSH Q2H PRN Ondansetron [Zofran] Med 10/05/17 05:51 Active 4 mg IVPUSH Q4HR PRN Pantoprazole [ProTONIX IV] Med 10/05/17 06:00 Active 40 mg IVPUSH ACBREAKFAST Sodium Chloride 0.9% [Normal Saline] 1,000 ml Med 10/04/17 23:30 Active IV ASDIRECTED Sodium Chloride 0.9% [Saline Flush] Med 10/04/17 23:12 Active 10 ml FLUSH ASDIRECTED PRN Peripheral IV Insertion Adult [OM.PC] Routine Oth 10/04/17 23:12 Ordered Resuscitation Status Routine Resus Stat 10/05/17 05:48 Ordered Medication Orders Hydromorphone HCl (Dilaudid) 0.5 mg IVPUSH Q2H PRN PRN Reason: Pain Sodium Chloride (Normal Saline) 1,000 mls @ 125 mls/hr IV ASDIRECTED [facility] Last Admin: 10/05/17 08:06 Dose: 125 mls/hr Infusion: 10/05/17 07:44 Dose: 125 mls/hr Admin: 10/04/17 23:44 Dose: 125 mls/hr Ondansetron HCl (Zofran) 4 mg IVPUSH Q4HR PRN PRN Reason: Nausea Pantoprazole Sodium (Protonix Iv) 40 mg IVPUSH ACBREAKFAST [facility] Last Admin: 10/05/17 08:27 Dose: 40 mg Sodium Chloride (Saline Flush) 10 ml FLUSH ASDIRECTED PRN PRN Reason: Keep Vein Open Last Admin: 10/04/17 23:46 Dose: 10 ml Assessment/Plan Comment:: 42 yo male, h/o mild mental retardation, s/p multiple prior abdominal operations , including most recent total abdominal 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 Patient admitted with small bowel obstruction, which is likely due to adhesive disease. CT scan radiology report and actual images were reviewed. 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 It does not appears that the parastomal hernia, based on my read, is definite cause of the bowel obstructions , as there are multiple loops of decompressed bowel. Furthermore, his clinical exam is reassuring, without tenderness at the stoma site. Oral contrast extends down into the distal small bowel, although none evidence in the ileostomy bag on CT scan. Plain abdominal X-ray obtained this morning shows improvement in bowel gas pattern, with no evidence of bowel dilatation. It was difficult to determine if contrast was in the ileostomy bag. - Continue NG tube to low continuous suction for now. Instructed nursing staff to flush appropriately with air/water every 6 hours and PRN to keep tube patent. - NG tube was readjusted to ensure appropriate functioning. - NPO/IV fluids. - Patient and his mother were instructed to save all urine output, so we can accurately monitor I/O's. - Abdominal X-ray showed distended bladder containing IV contrast. Shortly after X-ray was obtained, patient was able to void 750 cc. - Lovenox 40 mg daily for DVT prophylaxis. Vitaliy Hsieh M.D., F.A.C.S. General Surgery Pager: [phone]
--- NOTE | 2017-10-05 12:09 | CR ---
Abdomen: Supine and upright views of the abdomen were obtained. Comparison: Prior CT abdomen and pelvis study of 09/12/17 and abdominal x-ray of 07/26/17. Ostomy is noted. Contrast noted within the bladder. Bladder appears somewhat distended. Findings raise the possibility of bladder outlet obstruction. Nasogastric tube is seen. Gas is noted mostly within colon which is felt to be within normal limits at this time. Nothing appreciated to indicate small bowel obstruction. Scoliosis and degenerative change is noted within the spine. Several surgical clips are seen within the left abdomen. Impression: 1. Dilated contrast-filled bladder raising the possibility of bladder outlet obstruction. 2. Nasogastric tube lying with tip being within the stomach. 3. Gas scattered within colon with ostomy. Bowel gas pattern felt to be within normal limits. Diagnostic code #3
[2017-10-05] MEDS: Enoxaparin 40 MG/0.4 ML Syringe SUBCUT SCH (20:41)
[2017-10-06] MEDS: Sodium Chloride 0.9% 1,000 ML IV SCH ×2 (00:42→09:01)
[2017-10-06] MEDS: Pantoprazole 40 MG Vial IVPUSH SCH (06:08)
[2017-10-06] MEDS ORDERED: 50% Dextrose in Water 50 ML Syringe IVPUSH PRN (12:02)
[2017-10-06] MEDS ORDERED: D5 1/2 NS w/ 20 mEq/L KCl 1,000 ML IV SCH (12:30)
--- NOTE | 2017-10-06 13:23 | PCM.PN ---
- General Info Date of Service: 10/06/17 Subjective Update: Overnight, no acute events. This morning, his blood sugar was 59, so received D50. No need for pain medication. Denies abdominal pain. Has been voiding without difficulty. Ambulating without difficulty. Has had brown liquid stool in his ileostomy bag. - Patient Data Vitals - Most Recent: Last Vital Signs Temp 36.8 C 10/06/17 08:13 Pulse 73 10/06/17 08:13 Resp 16 10/06/17 08:13 BP 112/66 10/06/17 08:13 Pulse Ox 95 10/06/17 08:13 Weight - Most Recent: 96.116 kg I&O - Last 24 Hours: Intake & Output 10/05/17 10/06/17 10/06/17 22:59 06:59 14:59 Intake Total 1308 1528 Output Total 770 1280 205 Balance 538 248 -205 UOP > 50 cc/hr since admission and this morning NG tube output 200 cc since this morning. Was almost 1000 cc yesterday. Lab Results Last 24 Hours: Laboratory Results - last 24 hr 10/06/17 10/06/17 10/06/17 Range/Units 11:05 11:05 11:57 WBC 3.73 L (4.23-9.07) K/mm3 RBC 5.23 (4.63-6.08) M/mm3 Hgb 12.5 L (13.7-17.5) gm/L Hct 39.9 L (40.1-51.0) % MCV 76.3 L (79.0-92.2) fl MCH 23.9 L (25.7-32.2) pg MCHC 31.3 L (32.2-35.5) g/dl RDW Std Deviation 48.7 H (35.1-43.9) fL Plt Count 157 L (163-337) K/mm3 MPV 9.0 L (9.4-12.3) fl Neut % (Auto) 68.3 H (34.0-67.9) % Lymph % (Auto) 16.4 L (21.8-53.1) % [place] % (Auto) 14.7 H (5.3-12.2) % Eos % (Auto) 0 L (0.8-7.0) Baso % (Auto) 0.3 (0.1-1.2) % Neut # (Auto) 2.55 (1.78-5.38) K/mm3 Lymph # (Auto) 0.61 L (1.32-3.57) K/mm3 [place] # (Auto) 0.55 (0.30-0.82) K/mm3 Eos # (Auto) 0.00 L (0.04-0.54) K/mm3 Baso # (Auto) 0.01 (0.01-0.08) K/mm3 Sodium 141 (136-145) mEq/L Potassium 4.6 (3.5-5.1) mEq/L Chloride 107 (98-107) mEq/L Carbon Dioxide 18 L (21-32) mEq/L Anion Gap 20.6 H (5-15) BUN 15 (7-18) mg/dL Creatinine 1.0 (0.7-1.3) mg/dL Est Cr Clr Drug Dosing 119.35 mL/min Estimated GFR (MDRD) > 60 (>60) mL/min BUN/Creatinine Ratio 15.0 (14-18) Glucose 59 L (74-106) mg/dL POC Glucose 54 L (70-105) mg/dL Calcium 8.8 (8.5-10.1) mg/dL Total Bilirubin 0.7 (0.2-1.0) mg/dL AST 9 L (15-37) U/L ALT 14 L (16-63) U/L Alkaline Phosphatase 98 (46-116) U/L Total Protein 7.6 (6.4-8.2) g/dl Albumin 3.5 (3.4-5.0) g/dl Globulin 4.1 gm/dL Albumin/Globulin Ratio 0.9 L (1-2) 10/06/17 Range/Units 12:44 WBC (4.23-9.07) K/mm3 RBC (4.63-6.08) M/mm3 Hgb (13.7-17.5) gm/L Hct (40.1-51.0) % MCV (79.0-92.2) fl MCH (25.7-32.2) pg MCHC (32.2-35.5) g/dl RDW Std Deviation (35.1-43.9) fL Plt Count (163-337) K/mm3 MPV (9.4-12.3) fl Neut % (Auto) (34.0-67.9) % Lymph % (Auto) (21.8-53.1) % [place] % (Auto) (5.3-12.2) % Eos % (Auto) (0.8-7.0) Baso % (Auto) (0.1-1.2) % Neut # (Auto) (1.78-5.38) K/mm3 Lymph # (Auto) (1.32-3.57) K/mm3 [place] # (Auto) (0.30-0.82) K/mm3 Eos # (Auto) (0.04-0.54) K/mm3 Baso # (Auto) (0.01-0.08) K/mm3 Sodium (136-145) mEq/L Potassium (3.5-5.1) mEq/L Chloride (98-107) mEq/L Carbon Dioxide (21-32) mEq/L Anion Gap (5-15) BUN (7-18) mg/dL Creatinine (0.7-1.3) mg/dL Est Cr Clr Drug Dosing mL/min Estimated GFR (MDRD) (>60) mL/min BUN/Creatinine Ratio (14-18) Glucose (74-106) mg/dL POC Glucose 128 H (70-105) mg/dL Calcium (8.5-10.1) mg/dL Total Bilirubin (0.2-1.0) mg/dL AST (15-37) U/L ALT (16-63) U/L Alkaline Phosphatase (46-116) U/L Total Protein (6.4-8.2) g/dl Albumin (3.4-5.0) g/dl Globulin gm/dL Albumin/Globulin Ratio (1-2) Med Orders - Current: Current Medications Dextrose/Water (Dextrose 50% In Water) 50 ml IVPUSH ASDIRECTED PRN PRN Reason: Blood Glucose Last Admin: 10/06/17 12:10 Dose: 50 ml Enoxaparin Sodium (Lovenox) 40 mg SUBCUT DAILY@1999 [facility] Last Admin: 10/05/17 20:41 Dose: 40 mg Hydromorphone HCl (Dilaudid) 0.5 mg IVPUSH Q2H PRN PRN Reason: Pain Potassium Chloride/Dextrose/Sod Cl (D5 1/2 Ns W/ 20 Meq/L Kcl) 1,000 mls @ 125 mls/hr IV ASDIRECTED [facility] Ondansetron HCl (Zofran) 4 mg IVPUSH Q4HR PRN PRN Reason: Nausea Pantoprazole Sodium (Protonix Iv) 40 mg IVPUSH ACBREAKFAST [facility] Last Admin: 10/06/17 06:08 Dose: 40 mg Sodium Chloride (Saline Flush) 10 ml FLUSH ASDIRECTED PRN PRN Reason: Keep Vein Open Last Admin: 10/04/17 23:46 Dose: 10 ml Discontinued Medications Diatrizoate Meglum/Diatrizoate Sod (Gastrografin 37%) 90 ml PO ONETIME ONE Stop: 10/05/17 01:38 Last Admin: 10/05/17 02:29 Dose: 45 ml Hydromorphone HCl (Dilaudid) 0.5 mg IVPUSH ONETIME ONE Stop: 10/05/17 00:37 Last Admin: 10/05/17 01:17 Dose: 0.5 mg Sodium Chloride (Normal Saline) 1,000 mls @ 125 mls/hr IV ASDIRECTED [facility] Last Admin: 10/06/17 09:01 Dose: 125 mls/hr Iopamidol (Isovue-300 (61%)) 125 ml IVPUSH ONETIME ONE Stop: 10/05/17 01:38 Last Admin: 10/05/17 02:29 Dose: 125 ml Lorazepam (Ativan) 1 mg IVPUSH ONETIME ONE Stop: 10/05/17 00:55 Last Admin: 10/05/17 01:08 Dose: 1 mg Ondansetron HCl (Zofran) 4 mg IVPUSH ONETIME ONE Stop: 10/04/17 23:13 Last Admin: 10/04/17 23:45 Dose: 4 mg Pantoprazole Sodium (Protonix Iv) 40 mg IVPUSH ONETIME ONE Stop: 10/05/17 00:49 Last Admin: 10/05/17 01:17 Dose: 40 mg - Exam General: Alert, Cooperative, No Acute Distress GI/Abdominal Exam: Soft, Non-Tender, No Distention, Other (Ileostomy bag with liquid brown stool and air. Ileostomy site nontender.) - Problem List & Annotations (1) Small bowel obstruction SNOMED Code(s): 938861099 Code(s): K56.609 - UNSP INTESTNL OBST, UNSP TO PARTIAL VERSUS COMPLETE OBST Status: Acute Current Visit: Yes - Problem List Review Problem List Initiated/Reviewed/Updated: Yes - My Orders Last 24 Hours: My Active Orders 10/05/17 18:47 SCD [Sequential Compression Device] [OM.PC] Routine 10/05/17 18:48 Ambulate [RC] ASDIRECTED Communication Order [RC] 04,10,16,22 10/05/17 20:00 Enoxaparin [Lovenox] 40 mg SUBCUT DAILY@199910/06/17 12:00 Blood Glucose Check, Bedside [RC] Q6HR 10/06/17 12:02 Dextrose 50% in Water 50 ml IVPUSH ASDIRECTED PRN 10/06/17 12:30 D5 1/2 NS w/ 20 mEq/L KCl 1,000 ml IV ASDIRECTED - Plan Plan:: 42 yo male, h/o mild mental retardation, s/p multiple prior abdominal operations , including most recent total abdominal colectomy with end ileostomy (May 2017) for [place] syndrome. HD#2 for SBO. NG tube output has decreased steadily since placement. Output appears mostly non -bilious. Vitals normal, with good UOP. Abdominal exam remains benign, with liquid and air in the ileostomy bag. WBC normal. - Discussed with the patient and his family extensively regarding the patient's diagnosis and NG tube management. Given his improving clinical status, it is reasonable to remove the NG tube at this time, with the caveat that if the patient develops recurrence of abdominal pain, distention, n/v, he will need replacement of the NG tube. - NG tube was removed at the bedside. - Will advance to full liquid diet. - SCD's and Lovenox 40 mg daily for DVT prophylaxis. All questions from patient's parents were answered. Vitaliy Hsieh M.D., F.A.C.S. General Surgery Pager: [phone]
[2017-10-06] MEDS: Enoxaparin 40 MG/0.4 ML Syringe SUBCUT SCH (20:14)
[2017-10-07] MEDS: Pantoprazole 40 MG Vial IVPUSH SCH (06:06)
--- NOTE | 2017-10-07 15:15 | PCM.PN ---
- General Info Date of Service: 10/07/17 Subjective Update: Overnight, no acute events. Tolerated full liquid diet yesterday. Denies abdominal pain, nausea/emesis. Diet was advanced to regular diet for lunch today, which he tolerated well. - Patient Data Vitals - Most Recent: Last Vital Signs Temp 36.8 C 10/07/17 08:01 Pulse 99 10/07/17 08:01 Resp 18 10/07/17 08:01 BP 114/56 L 10/07/17 08:01 Pulse Ox 97 10/07/17 08:01 Weight - Most Recent: 96.026 kg I&O - Last 24 Hours: Intake & Output 10/07/17 10/07/17 10/07/17 06:59 14:59 22:59 Intake Total 800 840 Output Total 935 Balance -135 840 Med Orders - Current: Current Medications Dextrose/Water (Dextrose 50% In Water) 50 ml IVPUSH ASDIRECTED PRN PRN Reason: Blood Glucose Last Admin: 10/06/17 12:10 Dose: 50 ml Enoxaparin Sodium (Lovenox) 40 mg SUBCUT DAILY@1999 [facility] Last Admin: 10/06/17 20:14 Dose: 40 mg Hydromorphone HCl (Dilaudid) 0.5 mg IVPUSH Q2H PRN PRN Reason: Pain Ondansetron HCl (Zofran) 4 mg IVPUSH Q4HR PRN PRN Reason: Nausea Pantoprazole Sodium (Protonix Iv) 40 mg IVPUSH ACBREAKFAST [facility] Last Admin: 10/07/17 06:06 Dose: 40 mg Sodium Chloride (Saline Flush) 10 ml FLUSH ASDIRECTED PRN PRN Reason: Keep Vein Open Last Admin: 10/04/17 23:46 Dose: 10 ml Discontinued Medications Diatrizoate Meglum/Diatrizoate Sod (Gastrografin 37%) 90 ml PO ONETIME ONE Stop: 10/05/17 01:38 Last Admin: 10/05/17 02:29 Dose: 45 ml Hydromorphone HCl (Dilaudid) 0.5 mg IVPUSH ONETIME ONE Stop: 10/05/17 00:37 Last Admin: 10/05/17 01:17 Dose: 0.5 mg Sodium Chloride (Normal Saline) 1,000 mls @ 125 mls/hr IV ASDIRECTED [facility] Last Admin: 10/06/17 09:01 Dose: 125 mls/hr Potassium Chloride/Dextrose/Sod Cl (D5 1/2 Ns W/ 20 Meq/L Kcl) 1,000 mls @ 125 mls/hr IV ASDIRECTED [facility] Iopamidol (Isovue-300 (61%)) 125 ml IVPUSH ONETIME ONE Stop: 10/05/17 01:38 Last Admin: 10/05/17 02:29 Dose: 125 ml Lorazepam (Ativan) 1 mg IVPUSH ONETIME ONE Stop: 10/05/17 00:55 Last Admin: 10/05/17 01:08 Dose: 1 mg Ondansetron HCl (Zofran) 4 mg IVPUSH ONETIME ONE Stop: 10/04/17 23:13 Last Admin: 10/04/17 23:45 Dose: 4 mg Pantoprazole Sodium (Protonix Iv) 40 mg IVPUSH ONETIME ONE Stop: 10/05/17 00:49 Last Admin: 10/05/17 01:17 Dose: 40 mg - Exam General: Alert, Cooperative, No Acute Distress GI/Abdominal Exam: Soft, Non-Tender, No Distention, Other (Normal appearance to ileostomy, with liquid brown stool and air in bag.) - Problem List & Annotations (1) Small bowel obstruction SNOMED Code(s): 147817399 Code(s): K56.609 - UNSP INTESTNL OBST, UNSP TO PARTIAL VERSUS COMPLETE OBST Status: Acute Current Visit: Yes - Problem List Review Problem List Initiated/Reviewed/Updated: Yes - My Orders Last 24 Hours: My Active Orders 10/07/17 Lunch Regular Diet [DIET] - Plan Plan:: 42 yo male, h/o mild mental retardation, s/p multiple prior abdominal operations , including most recent total abdominal colectomy with end ileostomy (May 2017) for [place] syndrome. HD#3 for SBO, resolved with NG tube decompression (which was discontinued yesterday). Patient tolerating regular diet. - OK for discharge home. - Discussed discharge plan with patient and his parents. - Recommend regular physical activity. - June F/U PRN. Vitaliy Hsieh M.D., F.A.C.S. General Surgery Pager: [phone]
--- NOTE | 2017-10-07 15:19 | PCM.DCSUM1 ---
Discharge Summary - Hospital Course Free Text/Narrative:: The patient was admitted for partial SBO late on 04Oct2017 through the ER, and an NG tube was placed. Over the next two days, the patient had improvement in symptoms, and his NG tube was discontinued on 06Oct2017. His diet was slowly advanced and he tolerated this well. He was ready for discharge home on HD#3 ( 07Oct2017). Diagnosis: Stroke: No Modified Jcarlos Scale: No Symptoms at All Modified Door Scale Score: 0 - Discharge Data Discharge Date: 10/07/17 Discharge Disposition: Home, Self-Care 01 Condition: Good - Discharge Diagnosis/Problem(s) (1) Small bowel obstruction SNOMED Code(s): 057970442 ICD Code: K56.609 - UNSP INTESTNL OBST, UNSP TO PARTIAL VERSUS COMPLETE OBST Status: Acute Current Visit: Yes - Patient Instructions Diet: Regular Diet as Tolerated Activity: As Tolerated Showering/Bathing: May Shower Notify Provider of: Fever, Increased Pain, Nausea and/or Vomiting - Discharge Plan *PRESCRIPTION DRUG MONITORING PROGRAM REVIEWED*: Not Applicable *COPY OF PRESCRIPTION DRUG MONITORING REPORT IN PATIENT KECIA: Not Applicable Home Medications: Home Meds L.acidoph,Paracasei, B.lactis [Probiotic] 1 cap PO DAILY 04/14/17 [History] PARoxetine HCl [Paxil] 30 mg PO DAILY 04/14/17 [History] Cholecalciferol (Vitamin D3) [Vitamin D3] 1,000 unit PO DAILY 05/10/17 [History] Patient Handouts: Small Bowel Obstruction, [id number] Referrals: Maria Luz Brown IMPORT EXPORT AGENT [Primary Care Provider] - (Please call and schedule a post hospital follow-up appointment with your primary care doctor, Dr. Maria Luz Brown, within 7 to 10 days of discharge. ) Vitaliy Hsieh MD [Physician] - (as needed) - Discharge Summary/Plan Comment DC Time >30 min.: Yes - Patient Data Vitals - Most Recent: Last Vital Signs Temp 36.8 C 10/07/17 08:01 Pulse 99 10/07/17 08:01 Resp 18 10/07/17 08:01 BP 114/56 L 10/07/17 08:01 Pulse Ox 97 10/07/17 08:01 Weight - Most Recent: 96.026 kg I&O - Last 24 hours: Intake & Output 10/07/17 10/07/17 10/07/17 06:59 14:59 22:59 Intake Total 800 840 Output Total 935 Balance -135 840 Med Orders - Current: Current Medications Dextrose/Water (Dextrose 50% In Water) 50 ml IVPUSH ASDIRECTED PRN PRN Reason: Blood Glucose Last Admin: 10/06/17 12:10 Dose: 50 ml Enoxaparin Sodium (Lovenox) 40 mg SUBCUT DAILY@1999 [facility] Last Admin: 10/06/17 20:14 Dose: 40 mg Hydromorphone HCl (Dilaudid) 0.5 mg IVPUSH Q2H PRN PRN Reason: Pain Ondansetron HCl (Zofran) 4 mg IVPUSH Q4HR PRN PRN Reason: Nausea Pantoprazole Sodium (Protonix Iv) 40 mg IVPUSH ACBREAKFAST [facility] Last Admin: 10/07/17 06:06 Dose: 40 mg Sodium Chloride (Saline Flush) 10 ml FLUSH ASDIRECTED PRN PRN Reason: Keep Vein Open Last Admin: 10/04/17 23:46 Dose: 10 ml Discontinued Medications Diatrizoate Meglum/Diatrizoate Sod (Gastrografin 37%) 90 ml PO ONETIME ONE Stop: 10/05/17 01:38 Last Admin: 10/05/17 02:29 Dose: 45 ml Hydromorphone HCl (Dilaudid) 0.5 mg IVPUSH ONETIME ONE Stop: 10/05/17 00:37 Last Admin: 10/05/17 01:17 Dose: 0.5 mg Sodium Chloride (Normal Saline) 1,000 mls @ 125 mls/hr IV ASDIRECTED [facility] Last Admin: 10/06/17 09:01 Dose: 125 mls/hr Potassium Chloride/Dextrose/Sod Cl (D5 1/2 Ns W/ 20 Meq/L Kcl) 1,000 mls @ 125 mls/hr IV ASDIRECTED [facility] Iopamidol (Isovue-300 (61%)) 125 ml IVPUSH ONETIME ONE Stop: 10/05/17 01:38 Last Admin: 10/05/17 02:29 Dose: 125 ml Lorazepam (Ativan) 1 mg IVPUSH ONETIME ONE Stop: 10/05/17 00:55 Last Admin: 10/05/17 01:08 Dose: 1 mg Ondansetron HCl (Zofran) 4 mg IVPUSH ONETIME ONE Stop: 10/04/17 23:13 Last Admin: 10/04/17 23:45 Dose: 4 mg Pantoprazole Sodium (Protonix Iv) 40 mg IVPUSH ONETIME ONE Stop: 10/05/17 00:49 Last Admin: 10/05/17 01:17 Dose: 40 mg
== END 2017-10-07 15:57 | disposition home or self-care (01) | DRG 389 ==
LOC: JD.ED 21:34 → JD.MS 10-05 04:06
PROVIDERS: ADMIT Student in an Organized Health Care Education/Training Program; ATTEND Student in an Organized Health Care Education/Training Program
PROC: 0D9670Z Drainage of Stomach with Drainage Device, Via Natural or Artificial Opening (ICD-10-PCS; principal; 2017-10-05)
DX: K56.600 Partial intestinal obstruction, unspecified as to cause (principal); K56.51 Intestinal adhesions [bands], with partial obstruction; K59.39 Other megacolon; K94.09 Other complications of colostomy; K59.09 Other constipation; I73.9 Peripheral vascular disease, unspecified; F41.9 Anxiety disorder, unspecified; F32.9 Major depressive disorder, single episode, unspecified; M41.9 Scoliosis, unspecified; Z93.2 Ileostomy status; R56.9 Unspecified convulsions; Q03.9 Congenital hydrocephalus, unspecified; Z90.49 Acquired absence of other specified parts of digestive tract; R19.7 Diarrhea, unspecified; R11.2 Nausea with vomiting, unspecified; R10.9 Unspecified abdominal pain; Z88.8 Allergy status to other drugs, medicaments and biological substances; Z91.018 Allergy to other foods; Z91.048 Other nonmedicinal substance allergy status; Z79.899 Other long term (current) drug therapy; F79 Unspecified intellectual disabilities; Z85.72 Personal history of non-Hodgkin lymphomas
CPT/HCPCS: 36415; 74019; 74177; 80053; 85007; 85027; 86140; 96361; 96374; 96375; 99285; C9113; J1170; J2060; J2405; J7040; J7050; Q9963; Q9967; 82962; 85025; J1650; J7060

== ENCOUNTER 2018-03-26 13:40 | Emergency (ER) | payer MEDICARE, MEDICAID ==
[2018-03-26] MEDS ORDERED: Sodium Chloride 0.9% 10 ML Syringe FLUSH PRN (14:20)
[2018-03-26] MEDS ORDERED: Sodium Chloride 0.9% 1,000 ML IV SCH (14:30)
--- NOTE | 2018-03-26 15:20 | CR ---
Abdominal series: Supine and upright views the abdomen were obtained as well as frontal view of the chest. Comparison: Previous abdominal x-ray of 10/19/17. No prior chest x-ray. Scoliosis and scattered degenerative change is seen within the spine. Slight atelectasis or scarring is seen within the left base. Lungs show no acute-appearing change. Heart size is within normal limits. Upper mediastinum is normal. No free air is seen. Bowel gas pattern is felt to be within normal limits. Surgical clips are seen within the abdomen. Impression: 1. Incidental findings. Nothing acute is appreciated. Diagnostic code #2
--- NOTE | 2018-03-26 16:19 | EDM.PDOC ---
ED HPI GENERAL MEDICAL PROBLEM - General Chief Complaint: Abdominal Pain Stated Complaint: ABDOMINAL PAIN/HAS STOMA Time Seen by Provider: 03/26/18 14:02 Source of Information: Reports: Patient History Limitations: Reports: No Limitations - History of Present Illness INITIAL COMMENTS - FREE TEXT/NARRATIVE: The patient presents with abdominal pain. He had a bowel resection after bowel obstruction May 2017. He has an ileostomy. He has been having some abdominal pain today. He has no nausea or vomiting He has no fever, chills, cough, congestion or runny nose. He has no chest pain or shortness of breath. He had lots of output from his ileostomy a couple days ago. He has not been around any one who is sick. Onset: Gradual Duration: Hour(s): Location: Reports: Abdomen Quality: Reports: Ache Severity: Mild Improves with: Reports: None Worsens with: Reports: None Associated Symptoms: Reports: No Other Symptoms Abdominal Pain Score (Numeric/FACES): 5 - Related Data Allergies Allergy/AdvReac Type Severity Reaction Status Date / Time aspartame Allergy Cannot Verified 10/05/17 09:00 Remember raspberry Allergy Cannot Verified 10/05/17 09:00 Remember red dye Allergy Cannot Verified 10/05/17 09:00 Remember chloral hydrate AdvReac Hyperactivi Verified 10/06/17 10:11 ty Home Meds: Home Meds L.acidoph,Paracasei, B.lactis [Probiotic] 1 cap PO DAILY 04/14/17 [History] PARoxetine HCl [Paxil] 30 mg PO DAILY 04/14/17 [History] Cholecalciferol (Vitamin D3) [Vitamin D3] 1,000 unit PO DAILY 05/10/17 [History] Past Medical History HEENT History: Reports: Other (See Below) Other HEENT History: pt has had tubes in his ears bilaterally Cardiovascular History: Reports: PVD Gastrointestinal History: Reports: Chronic Constipation Musculoskeletal History: Reports: Other (See Below) Other Musculoskeletal History: scoliosis Neurological History: Reports: Seizure, Other (See Below) Other Neuro History: hydrocephalus congenital Psychiatric History: Reports: Anxiety, Depression, Suicidal Ideation Other Psychiatric History: mild MR Hematologic History: Reports: Other (See Below) Other Hematologic History: borderline lycopenia Oncologic (Cancer) History: Reports: Other (See Below) Other Oncologic History: pseudolymphoma - Infectious Disease History Infectious Disease History: Reports: Chicken Pox, MRSA - Past Surgical History Head Surgeries/Procedures: Reports: None HEENT Surgical History: Reports: None GI Surgical History: Reports: Colostomy, Hernia, Abdominal, Small Bowel Social & Family History - Family History Family Medical History: Noncontributory HEENT: Reports: None - Tobacco Use Smoking Status *Q: Never Smoker Second Hand Smoke Exposure: No - Caffeine Use Caffeine Use: Reports: None - Recreational Drug Use Recreational Drug Use: No - Living Situation & Occupation Living situation: Reports: Single, Alone, 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 Denies: Nausea, Vomiting : Reports: No Symptoms ED EXAM, GI/ABD - Physical Exam Exam: See Below Exam Limited By: No Limitations General Appearance: Alert, No Apparent Distress Ears: Normal External Exam Nose: Normal Inspection Head: Atraumatic, Normocephalic Neck: Normal Inspection Respiratory/Chest: No Respiratory Distress, Lungs Clear, Normal Breath Sounds Cardiovascular: Regular Rate, Rhythm, No Edema, No Murmur GI/Abdominal Exam: Soft, Non-Tender, No Organomegaly, No Mass, Other (Ileostomy in place with no problems noted.) Course - Vital Signs Last Recorded V/S: Last Vital Signs Temp 97.5 F 03/26/18 13:47 Pulse 66 03/26/18 13:47 Resp 16 03/26/18 13:47 BP 128/70 03/26/18 13:47 Pulse Ox 100 03/26/18 13:47 - Orders/Labs/Meds Orders: Active Orders 24 hr Category Date Time Status Peripheral IV Care [RC] . DIRECTED Care 03/26/18 14:21 Active UA W/MICROSCOPIC [URIN] Stat Lab 03/26/18 14:20 Stop Req Sodium Chloride 0.9% [Normal Saline] 1,000 ml Med 03/26/18 14:30 Active IV ASDIRECTED Sodium Chloride 0.9% [Saline Flush] Med 03/26/18 14:20 Active 10 ml FLUSH ASDIRECTED PRN Peripheral IV Insertion Adult [OM.PC] Stat Oth 03/26/18 14:20 Ordered Medication Orders Sodium Chloride (Normal Saline) 1,000 mls @ 125 mls/hr IV ASDIRECTED JOSE Last Admin: 03/26/18 15:28 Dose: 125 mls/hr Sodium Chloride (Saline Flush) 10 ml FLUSH ASDIRECTED PRN PRN Reason: Keep Vein Open Last Admin: 03/26/18 15:20 Dose: 10 ml Labs: Laboratory Tests 03/26/18 03/26/18 Range/Units 15:20 15:20 WBC 3.43 L (4.23-9.07) K/mm3 RBC 4.89 (4.63-6.08) M/mm3 Hgb 13.6 L (13.7-17.5) gm/L Hct 41.1 (40.1-51.0) % MCV 84.0 (79.0-92.2) fl MCH 27.8 (25.7-32.2) pg MCHC 33.1 (32.2-35.5) g/dl RDW Std Deviation 42.8 (35.1-43.9) fL Plt Count 164 (163-337) K/mm3 MPV 9.0 L (9.4-12.3) fl Neut % (Auto) 55.4 (34.0-67.9) % Lymph % (Auto) 28.6 (21.8-53.1) % Hubbard % (Auto) 13.4 H (5.3-12.2) % Eos % (Auto) 2.3 (0.8-7.0) Baso % (Auto) 0.3 (0.1-1.2) % Neut # (Auto) 1.90 (1.78-5.38) K/mm3 Lymph # (Auto) 0.98 L (1.32-3.57) K/mm3 Hubbard # (Auto) 0.46 (0.30-0.82) K/mm3 Eos # (Auto) 0.08 (0.04-0.54) K/mm3 Baso # (Auto) 0.01 (0.01-0.08) K/mm3 Sodium 135 L (136-145) mEq/L Potassium 3.9 (3.5-5.1) mEq/L Chloride 100 (98-107) mEq/L Carbon Dioxide 25 (21-32) mEq/L Anion Gap 13.9 (5-15) BUN 17 (7-18) mg/dL Creatinine 0.9 (0.7-1.3) mg/dL Est Cr Clr Drug Dosing 132.61 mL/min Estimated GFR (MDRD) > 60 (>60) mL/min BUN/Creatinine Ratio 18.9 H (14-18) Glucose 88 (74-106) mg/dL Calcium 9.1 (8.5-10.1) mg/dL Total Bilirubin 0.6 (0.2-1.0) mg/dL AST 12 L (15-37) U/L ALT 18 (16-63) U/L Alkaline Phosphatase 80 (46-116) U/L Total Protein 7.9 (6.4-8.2) g/dl Albumin 3.9 (3.4-5.0) g/dl Globulin 4.0 gm/dL Albumin/Globulin Ratio 1.0 (1-2) Lipase 92 (73-393) U/L Meds: Medications Generic Name Dose Route Start Last Admin Trade Name Freq PRN Reason Stop Dose Admin Sodium Chloride 1,000 mls @ 125 mls/hr 03/26/18 14:30 03/26/18 15:28 Normal Saline IV 125 mls/hr ASDIRECTED JOSE Administration Sodium Chloride 10 ml 03/26/18 14:20 03/26/18 15:20 Saline Flush FLUSH 10 ml ASDIRECTED PRN Administration Keep Vein Open - Re-Assessments/Exams Free Text/Narrative Re-Assessment/Exam: 03/26/18 16:18 His lab work all looks good. His x-ray shows no obstruction. I will have him take pepcid for 5 days and return if worse. Departure - Departure Time of Disposition: 16:20 Disposition: Home, Self-Care 01 Condition: Good Clinical Impression: Abdominal pain Qualifiers: Abdominal location: generalized Qualified Code(s): R10.84 - Generalized abdominal pain - Discharge Information *PRESCRIPTION DRUG MONITORING PROGRAM REVIEWED*: No *COPY OF PRESCRIPTION DRUG MONITORING REPORT IN PATIENT KECIA: No Referrals: Maria Luz Brown, QA TECH [Primary Care Provider] - 1 Week Additional Instructions: Take pepcid daily for 5 days. Drink plenty of fluids. Do not eat anything to heavy for 2 days. Please return if you are worse. - My Orders Last 24 Hours: My Active Orders 03/26/18 14:20 UA W/MICROSCOPIC [URIN] Stat Sodium Chloride 0.9% [Saline Flush] 10 ml FLUSH ASDIRECTED PRN Peripheral IV Insertion Adult [OM.PC] Stat 03/26/18 14:21 Peripheral IV Care [RC] . DIRECTED 03/26/18 14:30 Sodium Chloride 0.9% [Normal Saline] 1,000 ml IV ASDIRECTED - Assessment/Plan Last 24 Hours: My Active Orders 03/26/18 14:20 UA W/MICROSCOPIC [URIN] Stat Sodium Chloride 0.9% [Saline Flush] 10 ml FLUSH ASDIRECTED PRN Peripheral IV Insertion Adult [OM.PC] Stat 03/26/18 14:21 Peripheral IV Care [RC] . DIRECTED 03/26/18 14:30 Sodium Chloride 0.9% [Normal Saline] 1,000 ml IV ASDIRECTED
== END 2018-03-26 16:35 | disposition home or self-care (01) ==
LOC: JD.ED 13:40
DX: R10.84 Generalized abdominal pain (principal); Z88.8 Allergy status to other drugs, medicaments and biological substances; Z79.899 Other long term (current) drug therapy
CPT/HCPCS: 36415; 74022; 80053; 83690; 85025; 96360; 99284; J7040; 99283

== ENCOUNTER 2018-04-27 17:47 | Emergency (ER) | payer MEDICARE, MEDICAID ==
[2018-04-27] MEDS ORDERED: Sodium Chloride 0.9% 10 ML Syringe FLUSH PRN ×2 (18:09→18:55)
[2018-04-27] MEDS ORDERED: Ondansetron 4 MG/2 ML SDV IVPUSH ONE (18:09)
[2018-04-27] MEDS ORDERED: Sodium Chloride 0.9% 1,000 ML IV STA (18:09)
[2018-04-27] MEDS ORDERED: HYDROmorphone 1 MG/ML Syringe IVPUSH ONE (18:11)
[2018-04-27] MEDS ORDERED: Diatrizoate Meglumine/Diatrizoate Sodium 37% 120 ML Bottle PO ONE (18:55)
[2018-04-27] MEDS ORDERED: Iopamidol 755 Mg/ML 200 ML Bottle IV ONE (18:55)
--- NOTE | 2018-04-27 19:48 | CT ---
CT abdomen and pelvis Technique: Multiple axial sections were obtained from above the dome of the diaphragm inferiorly to the pubic symphysis. Intravenous contrast was utilized. Small amount of oral contrast was given. Artifact is noted from patient's arms along his side. Comparison: Prior CT abdomen and pelvis exam of 10/05/17. Findings: Small portion of the visualized lung bases are clear. Liver shows no discrete parenchymal abnormality. Spleen appears within normal limits. Adrenal glands show no nodule. Pancreas is within normal limits. Gallbladder contains no calcified gallstones. Kidneys show symmetric contrast enhancement without hydronephrosis or mass. Anterior abdominal wall hernia seen which contains a portion of stomach as well as small bowel loops. This hernia appears to cause no obstruction. Ileostomy is noted with peristomal hernia. Aorta shows no aneurysm. No retroperitoneal adenopathy is seen. There is a fair amount of fluid seen within the rectum Delayed images shows contrast within the distal ureters and within the bladder. Bone window settings were reviewed which shows scattered degenerative change within the spine as well as scoliosis. No free fluid or inflammatory change is identified. Scattered surgical clips are seen within the abdomen. Impression: 1. Anterior abdominal wall hernia containing stomach and small bowel which shows no obstruction. 2. Peristomal hernia also noted. 3. Ileostomy. 4. Fair amount of fluid within the rectum. 5. Other incidental findings. Diagnostic code #3
[2018-04-27] MEDS ORDERED: Sodium Chloride/Potassium Chloride Tab PO ONE (20:38)
--- NOTE | 2018-04-27 20:50 | EDM.PDOC ---
ED HPI GENERAL MEDICAL PROBLEM - General Chief Complaint: Gastrointestinal Problem Stated Complaint: VOMITING AND DIZZY AND BLOATING Time Seen by Provider: 04/27/18 17:59 Source of Information: Reports: Patient History Limitations: Reports: No Limitations - History of Present Illness INITIAL COMMENTS - FREE TEXT/NARRATIVE: The patient presents with abdominal pain, nausea, vomiting and bloating. He has a history of bowel obstruction that required a colectomy back in May. He has an ileostomy. He has had obstructions before. [facility] lives [facility] and they were going to get ready to eat when he did not feel right and he vomited. He vomited again in the ER. He has no fever, chills, cough, chest pain, or shortness of breath. Onset: Gradual Duration: Hour(s): Location: Reports: Abdomen Quality: Reports: Sharp Severity: Moderate Improves with: Reports: None Worsens with: Reports: None Associated Symptoms: Reports: Nausea/Vomiting. Denies: Chest Pain, Cough, Fever /Chills, Headaches, Shortness of Breath Middle Abdominal Pain Score (Numeric/FACES): 6 - Related Data Allergies Allergy/AdvReac Type Severity Reaction Status Date / Time aspartame Allergy Cannot Verified 04/27/18 17:58 Remember raspberry Allergy Cannot Verified 04/27/18 17:58 Remember red dye Allergy Cannot Verified 04/27/18 17:58 Remember chloral hydrate AdvReac Hyperactivi Verified 04/27/18 17:58 ty Home Meds: Home Meds L.acidoph,Paracasei, B.lactis [Probiotic] 1 cap PO DAILY 04/14/17 [History] PARoxetine HCl [Paxil] 20 mg PO DAILY 04/14/17 [History] Cholecalciferol (Vitamin D3) [Vitamin D3] 1,000 unit PO DAILY 05/10/17 [History] Ferrous Gluconate [Iron] 236 mg PO ACBREAKFAST 03/26/18 [History] Omeprazole 20 mg PO DAILY 03/26/18 [History] Ondansetron [Zofran ODT] 4 mg PO Q6H PRN #20 tab.dis 04/27/18 [Rx] Sodium Chloride/KCl [Thermotabs] 1 each PO TID #15 tab 04/27/18 [Rx] Past Medical History HEENT History: Reports: Other (See Below) Other HEENT History: pt has had tubes in his ears bilaterally Cardiovascular History: Reports: PVD Gastrointestinal History: Reports: Chronic Constipation Musculoskeletal History: Reports: Other (See Below) Other Musculoskeletal History: scoliosis Neurological History: Reports: Seizure, Other (See Below) Other Neuro History: hydrocephalus congenital Psychiatric History: Reports: Anxiety, Depression, Suicidal Ideation Other Psychiatric History: mild MR Hematologic History: Reports: Other (See Below) Other Hematologic History: borderline lycopenia Oncologic (Cancer) History: Reports: Other (See Below) Other Oncologic History: pseudolymphoma - Infectious Disease History Infectious Disease History: Reports: Chicken Pox, MRSA - Past Surgical History Head Surgeries/Procedures: Reports: None HEENT Surgical History: Reports: None GI Surgical History: Reports: Colostomy, Hernia, Abdominal, Small Bowel Social & Family History - Family History Family Medical History: Noncontributory HEENT: Reports: None - Tobacco Use Smoking Status *Q: Never Smoker - Caffeine Use Caffeine Use: Reports: None - Recreational Drug Use Recreational Drug Use: No - Living Situation & Occupation Living situation: Reports: Single, Alone, Other ([employer] staff 3X/day) Occupation: Disabled ED ROS GENERAL - Review of Systems Review Of Systems: See Below Constitutional: Reports: No Symptoms HEENT: Reports: No Symptoms Respiratory: Reports: No Symptoms Cardiovascular: Reports: No Symptoms Endocrine: Reports: No Symptoms GI/Abdominal: Reports: Abdominal Pain, Nausea, Vomiting : Reports: No Symptoms Musculoskeletal: Reports: No Symptoms ED EXAM, GI/ABD - Physical Exam Exam: See Below Exam Limited By: No Limitations General Appearance: Alert, No Apparent Distress Ears: Normal External Exam Nose: Normal Inspection Head: Atraumatic, Normocephalic Neck: Normal Inspection Respiratory/Chest: No Respiratory Distress, Lungs Clear, Normal Breath Sounds Cardiovascular: Regular Rate, Rhythm, No Edema, No Murmur GI/Abdominal Exam: Soft, No Organomegaly, No Mass, Other (Mild tenderness and bloating around the ileostomy) Course - Vital Signs Last Recorded V/S: Last Vital Signs Temp 97 F 04/27/18 17:56 Pulse 63 04/27/18 17:56 Resp 16 04/27/18 17:56 BP 131/75 04/27/18 17:56 Pulse Ox 100 04/27/18 17:56 - Orders/Labs/Meds Orders: Active Orders 24 hr Category Date Time Status Peripheral IV Care [RC] . DIRECTED Care 04/27/18 18:09 Active Sodium Chloride 0.9% [Saline Flush] Med 04/27/18 18:09 Active 10 ml FLUSH ASDIRECTED PRN Sodium Chloride 0.9% [Saline Flush] Med 04/27/18 18:55 Active 10 ml FLUSH ONETIME PRN ED Antiemetic Medication Reflex [OM.PC] Stat Oth 04/27/18 18:09 Ordered Peripheral IV Insertion Adult [OM.PC] Stat Oth 04/27/18 18:09 Ordered Medication Orders Sodium Chloride (Saline Flush) 10 ml FLUSH ASDIRECTED PRN PRN Reason: Keep Vein Open Last Admin: 04/27/18 18:28 Dose: 10 ml Sodium Chloride (Saline Flush) 10 ml FLUSH ONETIME PRN PRN Reason: IV FLUSH Last Admin: 04/27/18 19:29 Dose: 10 ml Labs: Laboratory Tests 04/27/18 04/27/18 04/27/18 Range/Units 18:20 18:20 21:00 WBC 3.47 L (4.23-9.07) K/mm3 RBC 4.58 L (4.63-6.08) M/mm3 Hgb 12.8 L (13.7-17.5) gm/L Hct 37.3 L (40.1-51.0) % MCV 81.4 (79.0-92.2) fl MCH 27.9 (25.7-32.2) pg MCHC 34.3 (32.2-35.5) g/dl RDW Std Deviation 38.9 (35.1-43.9) fL Plt Count 155 L (163-337) K/mm3 MPV 9.4 (9.4-12.3) fl Neut % (Auto) 50.7 (34.0-67.9) % Lymph % (Auto) 32.0 (21.8-53.1) % [place] % (Auto) 14.1 H (5.3-12.2) % Eos % (Auto) 2.6 (0.8-7.0) Baso % (Auto) 0.6 (0.1-1.2) % Neut # (Auto) 1.76 L (1.78-5.38) K/mm3 Lymph # (Auto) 1.11 L (1.32-3.57) K/mm3 [place] # (Auto) 0.49 (0.30-0.82) K/mm3 Eos # (Auto) 0.09 (0.04-0.54) K/mm3 Baso # (Auto) 0.02 (0.01-0.08) K/mm3 Sodium 119 L (136-145) mEq/L Potassium 3.2 L (3.5-5.1) mEq/L Chloride 87 L (98-107) mEq/L Carbon Dioxide 23 (21-32) mEq/L Anion Gap 12.2 (5-15) BUN 12 (7-18) mg/dL Creatinine 0.8 (0.7-1.3) mg/dL Est Cr Clr Drug Dosing 152.02 mL/min Estimated GFR (MDRD) > 60 (>60) mL/min BUN/Creatinine Ratio 15.0 (14-18) Glucose 110 H (74-106) mg/dL Calcium 8.8 (8.5-10.1) mg/dL Total Bilirubin 0.9 (0.2-1.0) mg/dL AST 13 L (15-37) U/L ALT 19 (16-63) U/L Alkaline Phosphatase 76 (46-116) U/L Total Protein 7.3 (6.4-8.2) g/dl Albumin 3.8 (3.4-5.0) g/dl Globulin 3.5 gm/dL Albumin/Globulin Ratio 1.1 (1-2) Lipase 78 (73-393) U/L Urine Color Yellow (Yellow) Urine Appearance Clear (Clear) Urine pH 6.0 (5.0-8.0) Ur Specific [place] 1.010 (1.005-1.030) Urine Protein Negative (Negative) Urine Glucose (UA) Negative (Negative) Urine Ketones 1+ H (Negative) Urine Occult Blood Negative (Negative) Urine Nitrite Negative (Negative) Urine Bilirubin Negative (Negative) Urine Urobilinogen 0.2 (0.2-1.0) Ur Leukocyte Esterase Negative (Negative) Urine RBC Not seen (0-5) /hpf Urine WBC 0-5 (0-5) /hpf Ur Epithelial Cells 0-5 (0-5) /hpf Urine Bacteria Not seen (FEW) /hpf Urine Mucus Not seen (FEW) /hpf Meds: Medications Generic Name Dose Route Start Last Admin Trade Name Za PRN Reason Stop Dose Admin Sodium Chloride 10 ml 04/27/18 18:09 04/27/18 18:28 Saline Flush FLUSH 10 ml ASDIRECTED PRN Administration Keep Vein Open Sodium Chloride 10 ml 04/27/18 18:55 04/27/18 19:29 Saline Flush FLUSH 10 ml ONETIME PRN Administration IV FLUSH Discontinued Medications Generic Name Dose Route Start Last Admin Trade Name Za PRN Reason Stop Dose Admin Diatrizoate Meglum/Diatrizoate Sod 120 ml 04/27/18 18:55 04/27/18 19:29 Gastrografin 37% PO 04/27/18 18:56 90 ml ONETIME ONE Administration Hydromorphone HCl 0.5 mg 04/27/18 18:11 04/27/18 18:26 Dilaudid IVPUSH 04/27/18 18:12 0.5 mg ONETIME ONE Administration Sodium Chloride 1,000 mls @ 1,000 mls/hr 04/27/18 18:09 04/27/18 18:25 Normal Saline IV 04/27/18 19:08 1,000 mls/hr .BOLUS STA Administration Iopamidol 100 ml 04/27/18 18:55 04/27/18 19:28 Isovue-370 (76%) IV 04/27/18 18:56 100 ml ONETIME ONE Administration Ondansetron HCl 4 mg 04/27/18 18:09 04/27/18 18:26 Zofran IVPUSH 04/27/18 18:10 4 mg ONETIME ONE Administration Oral Electrolytes 1 each 04/27/18 20:38 04/27/18 21:20 Thermotabs PO 04/27/18 20:39 1 each ONETIME ONE Administration - Re-Assessments/Exams Free Text/Narrative Re-Assessment/Exam: 04/27/18 20:52 I ordered an IV NS 1L bolus, zofran 4mg IV, dilaudid 0.5mg IV, labs, UA and a CT of his abdomen and pelvis. His WBC is 3.47. His Hgb is 12.8. His platelets were low at 155. His Na is low at 119. His K was a little low at 3.2. His glucose was 110. His lipase is normal at 78. His CT shows anterior abdominal wall hernia containing stomach and small bowel which shows no obstruction. Peristomal hernia also noted. Ileostomy. Fair amount of fluid within the rectum. Other incidental findings. He is feeling better and would like some water. He was able to keep it down. I ordered some sodium pills. I will get him on zofran and sodium pills. 04/27/18 21:22 His UA shows no UTI. Departure - Departure Time of Disposition: 21:30 Disposition: Home, Self-Care 01 Condition: Good Clinical Impression: Hyponatremia Abdominal pain Qualifiers: Abdominal location: generalized Qualified Code(s): R10.84 - Generalized abdominal pain Nausea and vomiting Qualifiers: Vomiting type: unspecified Vomiting Intractability: intractable Qualified Code( s): R11.2 - Nausea with vomiting, unspecified - Discharge Information *PRESCRIPTION DRUG MONITORING PROGRAM REVIEWED*: Not Applicable *COPY OF PRESCRIPTION DRUG MONITORING REPORT IN PATIENT KECIA: Not Applicable Prescriptions: Ondansetron [Zofran ODT] 4 mg PO Q6H PRN #20 tab.dis PRN Reason: Nausea\vomiting Sodium Chloride/KCl [Thermotabs] 1 each PO TID #15 tab Referrals: Maria Luz Brown, ENGLISH PROFESSOR [Primary Care Provider] - 1 Week Forms: ED Department Discharge Additional Instructions: Take the zofran every 6 hours as needed for nausea and vomiting. Drink powerade or gatorade that has more electrolytes. Take the thermotabs 3 times per day with meals. Advance your diet as tolerated. Please return if you are worse. Follow up with Maria Luz Brown next week. - My Orders Last 24 Hours: My Active Orders 04/27/18 18:09 Peripheral IV Care [RC] . DIRECTED Sodium Chloride 0.9% [Saline Flush] 10 ml FLUSH ASDIRECTED PRN ED Antiemetic Medication Reflex [OM.PC] Stat Peripheral IV Insertion Adult [OM.PC] Stat 04/27/18 18:55 Sodium Chloride 0.9% [Saline Flush] 10 ml FLUSH ONETIME PRN - Assessment/Plan Last 24 Hours: My Active Orders 04/27/18 18:09 Peripheral IV Care [RC] . DIRECTED Sodium Chloride 0.9% [Saline Flush] 10 ml FLUSH ASDIRECTED PRN ED Antiemetic Medication Reflex [OM.PC] Stat Peripheral IV Insertion Adult [OM.PC] Stat 04/27/18 18:55 Sodium Chloride 0.9% [Saline Flush] 10 ml FLUSH ONETIME PRN
== END 2018-04-27 22:02 | disposition home or self-care (01) ==
LOC: JD.ED 17:47
DX: R11.2 Nausea with vomiting, unspecified (principal); R10.84 Generalized abdominal pain; E87.1 Hypo-osmolality and hyponatremia; F41.9 Anxiety disorder, unspecified; F32.9 Major depressive disorder, single episode, unspecified; Z91.018 Allergy to other foods; Z88.8 Allergy status to other drugs, medicaments and biological substances; Z91.041 Radiographic dye allergy status; Z79.899 Other long term (current) drug therapy
CPT/HCPCS: 36415; 74177; 80053; 81001; 83690; 85025; 96361; 96374; 96375; 99284; A9270; J1170; J2405; J7040; Q9963; Q9967

== ENCOUNTER 2018-04-28 06:14 | Inpatient (IN) | payer MEDICARE, MEDICAID ==
--- NOTE | 2018-04-28 06:26 | EDM.PDOC ---
<Galo Choe - Last Filed: 04/28/18 06:29> ED HPI GENERAL MEDICAL PROBLEM - General Chief Complaint: Gastrointestinal Problem Stated Complaint: [facility] Time Seen by Provider: 04/28/18 06:25 Source of Information: Reports: Family History Limitations: Reports: No Limitations - History of Present Illness INITIAL COMMENTS - FREE TEXT/NARRATIVE: A 42-year-old male. He was seen here earlier yesterday evening for nausea and vomiting. He has a history of a small bowel obstruction back in May 2017 and he ended up getting a ileostomy. When he was here prior to this he was noted to have a low sodium and they did a CT scan with contrast that did not show an obstruction. He has a history of seizures as well as a congenital hydrocephalus and mild mental retardation. When they took him home earlier today states that when he walked in the door he went to the kitchen sink and promptly vomited. He then was put into bed and they thought he was going to sleep. He apparently got up and was on the floor when they came into the room and he had been vomiting again. He was also noted to be incontinent of urine. The mother states that the only other time he's ever been incontinent with urine is when he has had a seizure. We do not know if he had a seizure this morning that made him incontinent. Apparently they were not able to get him up off the floor and so they left him on the floor and put a blanket over him. When the ambulance crew arrived he appeared to be somewhat cold laying on the floor. The patient cannot add to the history at this time. The mother states normally he talks all the time but since he's been vomiting he has not talked much at all. - Related Data Allergies Allergy/AdvReac Type Severity Reaction Status Date / Time aspartame Allergy Cannot Verified 04/28/18 06:19 Remember raspberry Allergy Cannot Verified 04/28/18 06:19 Remember red dye Allergy Cannot Verified 04/28/18 06:19 Remember chloral hydrate AdvReac Hyperactivi Verified 04/28/18 06:19 ty Home Meds: Home Meds L.acidoph,Paracasei, B.lactis [Probiotic] 1 cap PO DAILY 04/14/17 [History] PARoxetine HCl [Paxil] 20 mg PO DAILY 04/14/17 [History] Cholecalciferol (Vitamin D3) [Vitamin D3] 1,000 unit PO DAILY 05/10/17 [History] Ferrous Gluconate [Iron] 236 mg PO ACBREAKFAST 03/26/18 [History] Omeprazole 20 mg PO DAILY 03/26/18 [History] Ondansetron [Zofran ODT] 4 mg PO Q6H PRN #20 tab.dis 04/27/18 [Rx] Sodium Chloride/KCl [Thermotabs] 1 each PO TID #15 tab 04/27/18 [Rx] Past Medical History HEENT History: Reports: Other (See Below) Other HEENT History: pt has had tubes in his ears bilaterally Cardiovascular History: Reports: PVD Gastrointestinal History: Reports: Chronic Constipation Musculoskeletal History: Reports: Other (See Below) Other Musculoskeletal History: scoliosis Neurological History: Reports: Seizure, Other (See Below) Other Neuro History: hydrocephalus congenital Psychiatric History: Reports: Anxiety, Depression, Suicidal Ideation Other Psychiatric History: mild MR Hematologic History: Reports: Other (See Below) Other Hematologic History: borderline lycopenia Oncologic (Cancer) History: Reports: Other (See Below) Other Oncologic History: pseudolymphoma - Infectious Disease History Infectious Disease History: Reports: Chicken Pox, MRSA - Past Surgical History Head Surgeries/Procedures: Reports: None HEENT Surgical History: Reports: Myringotomy w Tube(s) GI Surgical History: Reports: Colostomy, Hernia, Abdominal, Small Bowel Social & Family History - Family History Family Medical History: Noncontributory HEENT: Reports: None - Tobacco Use Smoking Status *Q: Never Smoker - Caffeine Use Caffeine Use: Reports: None - Recreational Drug Use Recreational Drug Use: No - Living Situation & Occupation Living situation: Reports: Single, Alone, Other ([employer] staff 3X/day) Occupation: Disabled ED ROS GENERAL - Review of Systems Review Of Systems: Unable To Obtain (Patient essentially not willing to talk, his review of systems is essentially the history of present illness) ED EXAM, GI/ABD - Physical Exam Exam: See Below Exam Limited By: Other (Patient is not willing to talk) General Appearance: Alert, WD/WN, Other (The patient is awake and he will look at you but then he closes his eyes and he won't respond) Eyes: Bilateral: Normal Appearance Ears: Normal External Exam Nose: Normal Inspection Throat/Mouth: Normal Lips, No Airway Compromise Head: Normocephalic Neck: Supple Respiratory/Chest: No Respiratory Distress, Lungs Clear, Normal Breath Sounds Cardiovascular: Regular Rate, Rhythm, No Murmur GI/Abdominal Exam: Soft, Other (Sounds are decreased, his ileostomy does have fluid in it and some stool, his underwear is wet from urine) Back Exam: Normal Inspection Extremities: Normal Inspection, No Pedal Edema Neurological: Other (He is awake but he does not want to respond.) Psychiatric: Flat Affect, Other (He will respond to painful stimuli and open his eyes as well as sometimes verbal stimuli but then he closes them and doesn' t want to respond) Skin Exam: Other (He is somewhat cool to touch on his extremities) Course - Vital Signs Last Recorded V/S: Last Vital Signs Temp 97.5 F 04/28/18 06:17 Pulse 69 04/28/18 06:17 Resp 16 04/28/18 06:17 BP 119/70 04/28/18 06:17 Pulse Ox 100 04/28/18 06:17 - Orders/Labs/Meds Orders: Active Orders 24 hr Category Date Time Status Sodium Chloride 0.9% [Normal Saline] 1,000 ml Med 04/28/18 09:15 Active IV ASDIRECTED Medication Orders Sodium Chloride (Normal Saline) 1,000 mls @ 150 mls/hr IV ASDIRECTED JOSE Last Admin: 04/28/18 09:38 Dose: 150 mls/hr Labs: Laboratory Tests 04/28/18 04/28/18 Range/Units 06:29 06:29 WBC 5.05 (4.23-9.07) K/mm3 RBC 4.43 L (4.63-6.08) M/mm3 Hgb 12.5 L (13.7-17.5) gm/L Hct 35.4 L (40.1-51.0) % MCV 79.9 (79.0-92.2) fl MCH 28.2 (25.7-32.2) pg MCHC 35.3 (32.2-35.5) g/dl RDW Std Deviation 36.7 (35.1-43.9) fL Plt Count 126 L (163-337) K/mm3 MPV 9.6 (9.4-12.3) fl Neut % (Auto) 86.7 H (34.0-67.9) % Lymph % (Auto) 4.6 L (21.8-53.1) % [place] % (Auto) 8.7 (5.3-12.2) % Eos % (Auto) 0 L (0.8-7.0) Baso % (Auto) 0.0 L (0.1-1.2) % Neut # (Auto) 4.38 (1.78-5.38) K/mm3 Lymph # (Auto) 0.23 L (1.32-3.57) K/mm3 [place] # (Auto) 0.44 (0.30-0.82) K/mm3 Eos # (Auto) 0.00 L (0.04-0.54) K/mm3 Baso # (Auto) 0.00 L (0.01-0.08) K/mm3 Manual Slide Review Abnormal smear Sodium 121 L (136-145) mEq/L Potassium 3.8 (3.5-5.1) mEq/L Chloride 88 L (98-107) mEq/L Carbon Dioxide 24 (21-32) mEq/L Anion Gap 12.8 (5-15) BUN 7 (7-18) mg/dL Creatinine 0.9 (0.7-1.3) mg/dL Est Cr Clr Drug Dosing TNP Estimated GFR (MDRD) > 60 (>60) mL/min BUN/Creatinine Ratio 7.8 L (14-18) Glucose 119 H (74-106) mg/dL Calcium 8.2 L (8.5-10.1) mg/dL Total Bilirubin 1.3 H (0.2-1.0) mg/dL AST 21 (15-37) U/L ALT 23 (16-63) U/L Alkaline Phosphatase 72 (46-116) U/L Total Protein 6.7 (6.4-8.2) g/dl Albumin 3.4 (3.4-5.0) g/dl Globulin 3.3 gm/dL Albumin/Globulin Ratio 1.0 (1-2) Meds: Medications Generic Name Dose Route Start Last Admin Trade Name Freq PRN Reason Stop Dose Admin Sodium Chloride 1,000 mls @ 150 mls/hr 04/28/18 09:15 04/28/18 09:38 Normal Saline IV 150 mls/hr ASDIRECTED JOSE Administration Discontinued Medications Generic Name Dose Route Start Last Admin Trade Name Freq PRN Reason Stop Dose Admin Sodium Chloride 1,000 mls @ 999 mls/hr 04/28/18 06:45 04/28/18 06:45 Normal Saline IV 04/28/18 07:45 999 mls/hr ONETIME ONE Administration Departure - Departure Disposition: Admitted As Inpatient 67 Clinical Impression: Hyponatremia, Gastroenteritis Altered mental status Qualifiers: Altered mental status type: somnolence Qualified Code(s): R40.0 - Somnolence Nausea and vomiting Qualifiers: Vomiting type: unspecified Vomiting Intractability: intractable Qualified Code( s): R11.2 - Nausea with vomiting, unspecified Abdominal pain Qualifiers: Abdominal location: generalized Qualified Code(s): R10.84 - Generalized abdominal pain - Discharge Information - My Orders Last 24 Hours: My Active Orders 04/28/18 09:15 Sodium Chloride 0.9% [Normal Saline] 1,000 ml IV ASDIRECTED - Assessment/Plan Last 24 Hours: My Active Orders 04/28/18 09:15 Sodium Chloride 0.9% [Normal Saline] 1,000 ml IV ASDIRECTED <Galo Guzman - Last Filed: 04/28/18 12:01> Course - Re-Assessments/Exams Free Text/Narrative Re-Assessment/Exam: 04/28/18 11:[address] Choe. I saw the patient last night. My concern was that he had a small bowel obstruction. Labs were done and a CT of his abdomen and pelvis was done. The CT did not show a bowl obstruction. His Na was low at 119. I gave him sodium through the IV and oral sodium. He went home and vomited again. He went to sleep and his care fiver found him early this morning and he vomited a couple more times and he was not responding. He would not talk or walk. He has a history of absance seizures. His caregiver did not see any activity. They called EMS and brought him in. Dr Choe gave him fluids. His WBC was normal at 5.05. His Hgb was 12.5. His Na was low at 121. It was 119 last night. His Glucose was 119. I ordered a CT of his head and it showed small scalp hematoma posteriorly. No acute intracranial abnormality. No significant change from previous study is seen. He opened his eyes for me a couple times but he will not respond. I feel he needs to be admitted. I called Dr Lopez and he agreed to the admission. Departure - Departure Time of Disposition: 12:00 Condition: Poor
[2018-04-28] MEDS ORDERED: Sodium Chloride 0.9% 1,000 ML IV ONE (06:45)
--- NOTE | 2018-04-28 09:07 | CT ---
Head CT Technique: Multiple axial sections through the brain were obtained. Intravenous contrast was not utilized. Comparison: Prior head CT study of 01/25/15. Findings: Ventricles are slightly prominent which appears stable from prior exam and are compatible with normal variant. Sulci over the convexities are within normal limits. No abnormal parenchymal densities are seen. No intracranial hemorrhage is seen. No midline shift or mass effect is seen. Bone window settings were reviewed which shows the visualized sinuses to appear clear. No acute calvarial abnormality is appreciated. Small scalp hematoma seen posteriorly. Impression: 1. Small scalp hematoma posteriorly. 2. No acute intracranial abnormality. No significant change from previous study is seen. Diagnostic code #2
[2018-04-28] MEDS ORDERED: Sodium Chloride 0.9% 1,000 ML IV SCH (09:15)
[2018-04-28] MEDS ORDERED: Acetaminophen/HYDROcodone 325-5 MG Tab PO PRN (11:58)
[2018-04-28] MEDS ORDERED: Docusate Sodium 100 MG Cap PO PRN (11:58)
[2018-04-28] MEDS ORDERED: Bisacodyl 5 MG Tab PO PRN (11:58)
[2018-04-28] MEDS ORDERED: LORazepam 2 MG/ML SDV IVPUSH PRN (11:58)
[2018-04-28] MEDS ORDERED: LORazepam 2 MG/ML SDV IV PRN (11:58)
[2018-04-28] MEDS ORDERED: hydrALAZINE 20 MG/ML SDV IVPUSH PRN (11:58)
[2018-04-28] MEDS ORDERED: Albuterol/Ipratropium 3.0-0.5 MG/3 ML Neb Soln NEB PRN (11:58)
[2018-04-28] MEDS ORDERED: HYDROmorphone 1 MG/ML Syringe IVPUSH PRN (11:58)
[2018-04-28] MEDS ORDERED: Ondansetron 4 MG/2 ML SDV IV PRN (11:58)
[2018-04-28] MEDS ORDERED: Metoprolol Tartrate 5 MG/5 ML SDV IVPUSH PRN (11:58)
[2018-04-28] MEDS: Potassium Chloride 20 MEQ Tab.ER PO SCH ×2 (13:23→16:26)
--- NOTE | 2018-04-28 13:30 | PCM.HP ---
H&P History of Present Illness - General Date of Service: 04/28/18 Admit Problem/Dx: Admission Diagnosis/Problem Admission Diagnosis/Problem Gastroenteritis Source of Information: Patient, Family, Old Records, Provider, RN Notes Reviewed History Limitations: Reports: Altered Mental Status - History of Present Illness Initial Comments - Free Text/Narative: This is a 42 yo white male with past medical hx/o PVD, Constipation, Scoliosis, Seizure, GERD, Anemia, Congenital Hydrocephalus, Mild Intellectual Disability, Borderline Lycopenia, Pseudolymphoma, Anxiety and Depression and Hx/o Suicidal Ideation who comes in for evaluation of nausea and vomiting. He was initially seen earlier in ED for hyponatremia. He received intravenous hydration and thermotabs but it appears he did not improve much. Patient has an ileostomy 2/2 SBO back May of last year. His CT scan report did not show an acute small bowel obstruction. After discharge from ED earlier today, he had another episode of emesis and vomited at the kitchen sink. He then went to bed and thought he was going to sleep. However per family, he got up and later was found on the floor vomiting again. He was also incontinent of urine. His mother thinks he may have had a seizure given his previous hx/o it in the past. Patient was too weak so his parents let him stay on the floor. And while laying on the floor, appeared cold , they covered him with blanket until ambulance came to transport him to the hospital. His initial work up in ED shows a CBC remarkable for RBC of 4.43, Hgb of 12.5, Hct of 35.4, Platelet of 126, Neutrophils of 86.7%, and Lymphocytes of 4.6%. His Chemistry is significant for Na of 121, Cl of 88, BS of 119, Ca of 8.2, Total Bilirubin of 1.3, and CK of 813. He is negative for influenza screening. His head CT scan report reads small scalp hematoma posteriorly. No acute intracranial abnormality. His chest x-ray shows atelectasis within both lung bases. Patient is primarily being admitted for Hyponatremia with Probable Seizures. He is full code. - Related Data Allergies/Adverse Reactions: Allergies Allergy/AdvReac Type Severity Reaction Status Date / Time aspartame Allergy Cannot Verified 04/28/18 06:19 Remember raspberry Allergy Cannot Verified 04/28/18 06:19 Remember red dye Allergy Cannot Verified 04/28/18 06:19 Remember chloral hydrate AdvReac Hyperactivi Verified 04/28/18 06:19 ty Home Medications: Home Meds L.acidoph,Paracasei, B.lactis [Probiotic] 1 cap PO DAILY 04/14/17 [History] PARoxetine HCl [Paxil] 20 mg PO DAILY 04/14/17 [History] Cholecalciferol (Vitamin D3) [Vitamin D3] 1,000 unit PO DAILY 05/10/17 [History] Ferrous Gluconate [Iron] 236 mg PO ACBREAKFAST 03/26/18 [History] Omeprazole 20 mg PO DAILY 03/26/18 [History] Ondansetron [Zofran ODT] 4 mg PO Q6H PRN #20 tab.dis 04/27/18 [Rx] Sodium Chloride/KCl [Thermotabs] 1 each PO TID #15 tab 04/27/18 [Rx] Past Medical History HEENT History: Reports: Other (See Below) Other HEENT History: pt has had tubes in his ears bilaterally Cardiovascular History: Reports: PVD, Other (See Below) Other Cardiovascular History: veins stripped by Dr. Fitch Gastrointestinal History: Reports: Bowel Obstruction, Chronic Constipation, GERD Genitourinary History: Reports: None Musculoskeletal History: Reports: Other (See Below) Other Musculoskeletal History: scoliosis Neurological History: Reports: Seizure, Other (See Below) Other Neuro History: hydrocephalus congenital Psychiatric History: Reports: Anxiety, Depression, Suicidal Ideation Other Psychiatric History: mild MR Hematologic History: Reports: Other (See Below) Other Hematologic History: borderline lycopenia? Oncologic (Cancer) History: Reports: Other (See Below) Other Oncologic History: pseudolymphoma - Infectious Disease History Infectious Disease History: Reports: MRSA - Past Surgical History Head Surgeries/Procedures: Reports: None HEENT Surgical History: Reports: Myringotomy w Tube(s) GI Surgical History: Reports: Colostomy, Hernia, Abdominal, Small Bowel Other GI Surgeries/Procedures: Abd. 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 Exam - Exam Exam: See Below - Vital Signs Vital Signs: Last Vital Signs Temp 36.4 C 04/28/18 06:17 Pulse 82 04/28/18 11:13 Resp 16 04/28/18 11:13 BP 112/55 L 04/28/18 11:13 Pulse Ox 95 04/28/18 11:13 Weight: 91.989 kg - Exam General: Alert, Other (He is able to open eyes but not willing to talk) HEENT: Conjunctiva Clear, Hearing Intact, Mucosa Moist & [place], Nares Patent, Normal Nasal Septum, Pupils Equal, Pupils Reactive Neck: Supple, Trachea Midline Lungs: Clear to Auscultation, Normal Respiratory Effort, Other (poor respiratory effort ) Cardiovascular: Regular Rate, Regular Rhythm GI/Abdominal Exam: Soft, Non-Tender, No Distention, No Mass, Abnormal Bowel Sounds, Other (right sided ileostomy bag with dark-green colored liquid stool. Bag is flat and not inflated) (Male) Exam: Normal Inspection, Rash, Other (testicular petechiae). No: Penile Lesions, Scrotal Swelling, Scrotum Tenderness (L), Urethral Discharge Rectal (Males) Exam: Deferred Back Exam: Normal Inspection Extremities: Normal Inspection, Non-Tender, No Pedal Edema, Normal Capillary Refill Peripheral Pulses: 2+: Posterior Tibial (L), Posterior Tibial (R), Dorsalis Pedis (L), Dorsalis Pedis (R) Skin: Warm, Dry, Intact Neuro Extensive - Mental Status: Alert, Normal Mood/Affect Neuro Extensive - Motor, Sensory, Reflexes: Other (deferred due to inability to follow command; he is not very engaging) Psychiatric: Alert, Normal Affect, Normal Mood Physical Exam Comments:: Patient will look t you and then closes his eyes but would not respond. He does not engage when you try to. At some point, during my examination he jumped out of bed but we figured later because he wants to get to the bathroom to urinate. He wet his beddings in bed. - Patient Data Lab Results Last 24 hrs: Laboratory Results - last 24 hr 0304/28/18 04/28/18 Range/Units 06:29 06:29 12:42 WBC 5.05 (4.23-9.07) K/mm3 RBC 4.43 L (4.63-6.08) M/mm3 Hgb 12.5 L (13.7-17.5) gm/L Hct 35.4 L (40.1-51.0) % MCV 79.9 (79.0-92.2) fl MCH 28.2 (25.7-32.2) pg MCHC 35.3 (32.2-35.5) g/dl RDW Std Deviation 36.7 (35.1-43.9) fL Plt Count 126 L (163-337) K/mm3 MPV 9.6 (9.4-12.3) fl Neut % (Auto) 86.7 H (34.0-67.9) % Lymph % (Auto) 4.6 L (21.8-53.1) % [place] % (Auto) 8.7 (5.3-12.2) % Eos % (Auto) 0 L (0.8-7.0) Baso % (Auto) 0.0 L (0.1-1.2) % Neut # (Auto) 4.38 (1.78-5.38) K/mm3 Lymph # (Auto) 0.23 L (1.32-3.57) K/mm3 [place] # (Auto) 0.44 (0.30-0.82) K/mm3 Eos # (Auto) 0.00 L (0.04-0.54) K/mm3 Baso # (Auto) 0.00 L (0.01-0.08) K/mm3 Manual Slide Review Abnormal smear Sodium 121 L (136-145) mEq/L Potassium 3.8 (3.5-5.1) mEq/L Chloride 88 L (98-107) mEq/L Carbon Dioxide 24 (21-32) mEq/L Anion Gap 12.8 (5-15) BUN 7 (7-18) mg/dL Creatinine 0.9 (0.7-1.3) mg/dL Est Cr Clr Drug Dosing TNP Estimated GFR (MDRD) > 60 (>60) mL/min BUN/Creatinine Ratio 7.8 L (14-18) Glucose 119 H (74-106) mg/dL Lactic Acid 1.1 (0.4-2.0) mmol/L Calcium 8.2 L (8.5-10.1) mg/dL Total Bilirubin 1.3 H (0.2-1.0) mg/dL AST 21 (15-37) U/L ALT 23 (16-63) U/L Alkaline Phosphatase 72 (46-116) U/L Creatine Kinase (39-308) U/L Total Protein 6.7 (6.4-8.2) g/dl Albumin 3.4 (3.4-5.0) g/dl Globulin 3.3 gm/dL Albumin/Globulin Ratio 1.0 (1-2) 04/28/18 Range/Units 12:42 WBC (4.23-9.07) K/mm3 RBC (4.63-6.08) M/mm3 Hgb (13.7-17.5) gm/L Hct (40.1-51.0) % MCV (79.0-92.2) fl MCH (25.7-32.2) pg MCHC (32.2-35.5) g/dl RDW Std Deviation (35.1-43.9) fL Plt Count (163-337) K/mm3 MPV (9.4-12.3) fl Neut % (Auto) (34.0-67.9) % Lymph % (Auto) (21.8-53.1) % [place] % (Auto) (5.3-12.2) % Eos % (Auto) (0.8-7.0) Baso % (Auto) (0.1-1.2) % Neut # (Auto) (1.78-5.38) K/mm3 Lymph # (Auto) (1.32-3.57) K/mm3 [place] # (Auto) (0.30-0.82) K/mm3 Eos # (Auto) (0.04-0.54) K/mm3 Baso # (Auto) (0.01-0.08) K/mm3 Manual Slide Review Sodium (136-145) mEq/L Potassium (3.5-5.1) mEq/L Chloride (98-107) mEq/L Carbon Dioxide (21-32) mEq/L Anion Gap (5-15) BUN (7-18) mg/dL Creatinine (0.7-1.3) mg/dL Est Cr Clr Drug Dosing Estimated GFR (MDRD) (>60) mL/min BUN/Creatinine Ratio (14-18) Glucose (74-106) mg/dL Lactic Acid (0.4-2.0) mmol/L Calcium (8.5-10.1) mg/dL Total Bilirubin (0.2-1.0) mg/dL AST (15-37) U/L ALT (16-63) U/L Alkaline Phosphatase (46-116) U/L Creatine Kinase 813 H (39-308) U/L Total Protein (6.4-8.2) g/dl Albumin (3.4-5.0) g/dl Globulin gm/dL Albumin/Globulin Ratio (1-2) Result Diagrams: 04/28/18 22:49 04/28/18 22:29 Problem List Initiated/Reviewed/Updated: Yes Orders Last 24hrs: Active Orders 24 hr Category Date Time Status Admission Status [Patient Status] [ADT] Routine ADT 04/28/18 10:36 Active Ambulate [RC] ASDIRECTED Care 04/28/18 12:06 Active Antiembolic Devices [RC] DAILY Care 04/28/18 12:00 Active Height and Weight [RC] 04 Care 04/28/18 11:58 Active Intake and Output [RC] 04,16 Care 04/28/18 11:58 Active Oxygen Therapy [RC] PRN Care 04/28/18 11:58 Active RT Aerosol Therapy [RC] ASDIRECTED Care 04/28/18 12:00 Active Up With Assistance [RC] ASDIRECTED Care 04/28/18 11:58 Active Up ad Carmen [RC] ASDIRECTED Care 04/28/18 11:58 Active VTE/DVT Education [RC] DAILY Care 04/28/18 11:58 Active Vital Signs [RC] Q4HR Care 04/28/18 11:58 Active Consult to Case Management/Bung Remover [CONS] Cons 04/28/18 11:58 Active Routine Consult to Spiritual Care [CONS] Routine Cons 04/28/18 11:58 Active OT Evaluation and Treatment [CONS] Routine Cons 04/28/18 11:58 Active PT Evaluation and Treatment [CONS] Routine Cons 04/28/18 11:58 Active Nothing per Oral Now Diet [DIET] Diet 04/28/18 Lunch Active BASIC METABOLIC PANEL,BMP [CHEM] AM Lab 04/29/18 05:11 Ordered BASIC METABOLIC PANEL,BMP [CHEM] AM Lab 04/30/18 05:11 Ordered BASIC METABOLIC PANEL,BMP [CHEM] AM Lab 05/01/18 05:11 Ordered BASIC METABOLIC PANEL,BMP [CHEM] AM Lab 05/02/18 05:11 Ordered C-REACTIVE PROTEIN [CHEM] AM Lab 04/29/18 05:11 Ordered C-REACTIVE PROTEIN [CHEM] AM Lab 04/30/18 05:11 Ordered CBC WITH AUTO DIFF [HEME] AM Lab 04/29/18 05:11 Ordered CBC WITH AUTO DIFF [HEME] AM Lab 04/30/18 05:11 Ordered CBC WITH AUTO DIFF [HEME] AM Lab 05/01/18 05:11 Ordered MAGNESIUM [CHEM] AM Lab 04/29/18 05:11 Ordered MAGNESIUM [CHEM] AM Lab 04/30/18 05:11 Ordered MAGNESIUM [CHEM] AM Lab 05/01/18 05:11 Ordered MAGNESIUM [CHEM] AM Lab 05/02/18 05:11 Ordered Acetaminophen [Tylenol] Med 04/28/18 11:58 Active 650 mg PO Q4H PRN Acetaminophen [Tylenol] Med 04/28/18 11:58 Active 650 mg RECTAL Q4H PRN Acetaminophen/HYDROcodone [[place] 325-5 MG] Med 04/28/18 11:58 Active 1 tab PO Q4H PRN Albuterol/Ipratropium [DuoNeb 3.0-0.5 MG/3 ML] Med 04/28/18 11:58 Active 3 ml NEB Q4H PRN Bisacodyl [Dulcolax] Med 04/28/18 11:58 Active 5 mg PO DAILY PRN Cholecalciferol (Vitamin D3) [Vitamin D3] Med 04/29/18 09:00 Active 1,000 units PO DAILY Docusate Sodium [Colace] Med 04/28/18 11:58 Active 100 mg PO BID PRN Docusate Sodium/Sennosides [Senna Plus] Med 04/28/18 11:58 Active 1 tab PO BID PRN Ferrous Gluconate [Iron] Med 04/29/18 06:00 Pending 236 mg PO ACBREAKFAST HYDROmorphone [Dilaudid] Med 04/28/18 11:58 Active 0.25 mg IVPUSH Q2H PRN LORazepam [Ativan] Med 04/28/18 11:58 Active 0.5 mg IV Q6H PRN LORazepam [Ativan] Med 04/28/18 11:58 Active 2 mg IVPUSH Q4H PRN Metoclopramide [Reglan] Med 04/28/18 12:15 Active 5 mg IVPUSH Q6H Metoprolol Tartrate [Lopressor] Med 04/28/18 11:58 Active 5 mg IVPUSH Q4H PRN Modafinil [Provigil] Med 04/29/18 12:31 Once 100 mg PO DAILY ONE Ondansetron [Zofran] Med 04/28/18 11:58 Active 4 mg IV Q6H PRN Pharmacy Consult [Consult to Pharmacy] Med 04/28/18 13:30 Ordered 1 each .XX ASDIRECTED Pharmacy to Dose - Magnesium R [Pharmacy to Dose - Med 04/28/18 12:00 Pending Magnesium Replacement] 1 dose .XX ASDIRECTED Pharmacy to Dose - Potassium R [Pharmacy to Dose - Med 04/28/18 12:00 Pending Potassium Replacement] 1 dose .XX ASDIRECTED Potassium Chloride [Klor-Con M20] Med 04/28/18 13:00 Active 40 meq PO Q4H Sodium Chloride 0.9% [Normal Saline] 1,000 ml Med 04/28/18 09:15 Active IV ASDIRECTED hydrALAZINE [Apresoline] Med 04/28/18 11:58 Active 20 mg IVPUSH Q4H PRN Sequential Compression Device [OM.PC] Per Unit Routine Oth 04/28/18 11:59 Ordered Resuscitation Status Routine Resus Stat 04/28/18 11:55 Ordered Medication Orders Acetaminophen (Tylenol) 650 mg PO Q4H PRN PRN Reason: Pain (Mild 1-3)/fever Acetaminophen (Tylenol) 650 mg RECTAL Q4H PRN PRN Reason: Pain (mild 1-3) Hydrocodone Bitart/Acetaminophen ([place] 325-5 Mg) 1 tab PO Q4H PRN PRN Reason: Pain (moderate 4-6) Albuterol/Ipratropium (Duoneb 3.0-0.5 Mg/3 Ml) 3 ml NEB Q4H PRN PRN Reason: Shortness Of Breath/wheezing Bisacodyl (Dulcolax) 5 mg PO DAILY PRN PRN Reason: Constipation Cholecalciferol (Vitamin D3) 1,000 units PO DAILY [facility] Docusate Sodium (Colace) 100 mg PO BID PRN PRN Reason: Constipation Hydralazine HCl (Apresoline) 20 mg IVPUSH Q4H PRN PRN Reason: Hypertension Hydromorphone HCl (Dilaudid) 0.25 mg IVPUSH Q2H PRN PRN Reason: Pain (severe 7-10) Sodium Chloride (Normal Saline) 1,000 mls @ 150 mls/hr IV ASDIRECTED [facility] Last Admin: 04/28/18 09:38 Dose: 150 mls/hr Lorazepam (Ativan) 2 mg IVPUSH Q4H PRN PRN Reason: Seizures Lorazepam (Ativan) 0.5 mg IV Q6H PRN PRN Reason: Anxiety Magnesium Sulfate (Pharmacy To Dose - Magnesium Replacement) 1 dose .XX ASDIRECTED [facility] Metoclopramide HCl (Reglan) 5 mg IVPUSH Q6H [facility] Stop: 04/29/18 18:16 Metoprolol Tartrate (Lopressor) 5 mg IVPUSH Q4H PRN PRN Reason: Tachycardia Modafinil (Provigil) 100 mg PO DAILY ONE Stop: 04/29/18 12:32 Non-Formulary Medication (Ferrous Gluconate [Iron]) 236 mg PO ACBREAKFAST [facility] Ondansetron HCl (Zofran) 4 mg IV Q6H PRN PRN Reason: Nausea/Vomiting Pharmacy Consult (Consult To Pharmacy) 1 each .XX ASDIRECTED [facility] Potassium Chloride (Pharmacy To Dose - Potassium Replacement) 1 dose .XX ASDIRECTED [facility] Potassium Chloride (Klor-Con M20) 40 meq PO Q4H [facility] Stop: 04/28/18 17:01 Last Admin: 04/28/18 13:23 Dose: Not Given Senna/Docusate Sodium (Senna Plus) 1 tab PO BID PRN PRN Reason: Constipation Assessment/Plan Comment:: Assessment/Plan: Acute: Encephalopathy - Suspect 2/2 Toxic/Metabolic +/- post ictal state - Heat CT scan shows no acute intra-cranial abnormality but not posterior scalp hematoma - He is easily arousable and open his eyes; unlikely encephalitis or meningitis at this point - Aspiration Precaution Sepsis from Gastroenteritis w/ Possible Ileus - WBC 3.47 yesterday; now 5.05 - Fever with 38.3C - Hypotensive with documented BPs of 90/29 mmHg and 104/57 mmHg - Influenza screening negative - LA is 1.1 - CXR shows bibasilar atelectasis - UA unable to obtain; not cooperative - Blood culture and RVP - Repeat CBC and ordered Procalcitonin, ESR and CRP - IV Zosyn/Vancomycin and Levaquin for pharmacy to dose (has a hx/o Lycopenia which put him at increased risk for infection) Gastroenteritis - He has been vomiting numerous times - Ileostomy shows liquid stools - Fecal Cx/Sx plus C. Diff test - IV hydration and PRN anti-emesis Ileus S/p Hx/o SBO with Ileostomy - He has not had much gas in his ileostomy bag (flat) - Greenish colored liquid fecal matter - Ambulate and prokinetic agent Probable Seizure - Evidenced by posterior scalp hematoma on head CT scan - CK is 813 - He carries a hx/o Seizure Disorder and Hydrocephalus Congenital - Risk factor: Hyponatremia w/ a sodium level of 118-121 - Low sodium level known to cause seizure and in the setting of infection the threshold is lower - Unable to take oral salt tablets so we switched to 3% Hypertonic Solution with slow infusion (pharmacy to dose) - PRN Ativan for abortive seizure - Seizure Precautions - Offered EEG but unlikely he will cooperate with the procedure Hyponatremia - Na 118--> 121 - He is on SSRI a known drug that could cause hyponatremia; will hold it for now - Likely 2/2 GI loss and SSRI - IVF fluids and 3% Hypertonic Saline slow infusion - Daily labs Chronic: PVD Constipation Scoliosis Seizure Disorder Hx/o Congenital Hydrocephalus Intellectual Disability Anxiety Depression Pseudolymphoma Hx/o Lycopenia Plan: Admit to [facility] w/ Tele Routine AM Labs Resume Home Meds Aspiration/Seizure Precaution IS as directed IV fluids for hydration PT/OT when appropriate SW/CM for d/c planning Code status: DNR/DNI Updated family at bedside about what diagnoses, test and imaging results, and treatment plan. Informed his family about my theory. He likely has some kind of a gastroenteritis which caused sodium loss. This further worsened by his Paxil, an SSRI which is known to cause hyponatremia. With low level of Na, he developed seizure and had an unwitnessed fall. As he fell down, the back of his head hit something which would explain the posterior scalp hematoma on head CT scan. The bibasilar atelectasis on chest x-ay, can be best explained by aspiration at the time he was having a seizure. He likely had poor control of his oral secretions at the time of seizure thus it went into his lungs which now put him at risk for pneumonia.
[2018-04-28] MEDS: Metoclopramide 10 MG/2 ML SDV IVPUSH SCH ×2 (13:33→21:02)
[2018-04-28] MEDS: Acetaminophen 650 MG Supp RECTAL PRN ×2 (13:35→22:03)
[2018-04-28] MEDS ORDERED: Sodium Chloride 3% 250 ML IV ONE (13:45)
[2018-04-28] MEDS ORDERED: POTASSIUM CHLORIDE PO SCH (15:00)
[2018-04-28] MEDS ORDERED: SODIUM CHLORIDE PO SCH (15:00)
[2018-04-28] MEDS ORDERED: Sodium Chloride/Potassium Chloride Tab PO SCH (15:00)
--- NOTE | 2018-04-28 15:11 | CR ---
Chest: Frontal view of the chest was obtained utilizing portable technique. Comparison: No prior chest x-ray is available. Heart size and mediastinum are normal. Increased density within both lung bases is seen compatible with atelectasis. These findings can also be seen with aspiration. Lungs otherwise are clear. Bony structures shows degenerative spurring within the spine with scoliosis. Impression: 1. Atelectasis within both lung bases as described above. 2. Other incidental findings. Diagnostic code #3
[2018-04-28] MEDS ORDERED: Vancomycin 500 MG SDV IV SCH (22:45)
[2018-04-28] MEDS ORDERED: Piperacillin/Tazobactam 4.5 GM in Sodium Chloride 0.9% 100 ML IV ONE (22:45)
[2018-04-28] MEDS ORDERED: Piperacillin/Tazobactam 4.5 GM in Sodium Chloride 0.9% 100 ML IV SCH (22:45)
[2018-04-28] MEDS ORDERED: Scopolamine 1.5 MG Transdermal Patch TRDERM ONE (23:08)
[2018-04-28] MEDS ORDERED: Levofloxacin/Dextrose 5%-Water 500 MG in Premix Bag 1 BAG IV SCH (23:30)
[2018-04-28] MEDS: NS + KCl 20mEq/L 1,000 ML IV SCH (23:50)
[2018-04-29] MEDS: Metoclopramide 10 MG/2 ML SDV IVPUSH SCH ×2 (00:08→05:46)
[2018-04-29] MEDS: Levofloxacin/Dextrose 5%-Water 500 MG in Premix Bag 1 BAG IV SCH ×2 (00:39→20:20)
[2018-04-29] MEDS: Vancomycin 1 GM, Vancomycin 250 MG in Sodium Chloride 0.9% 500 ML IV SCH ×3 (01:57→18:08)
[2018-04-29] MEDS: Piperacillin/Tazobactam 4.5 GM in Sodium Chloride 0.9% 100 ML IV SCH ×3 (05:46→20:19)
[2018-04-29] MEDS ORDERED: Piperacillin/Tazobactam 4.5 GM in Sodium Chloride 0.9% 100 ML IV SCH (07:00)
--- NOTE | 2018-04-29 08:05 | PCM.SN ---
- Free Text/Narrative Note: Patient seen and examined with parents at bedside. No overnight or acute issues per family member. He actually woke up at about 2 AM this morning. He looked totally different this AM. He is back at his baseline per family. He is alert, awake, talking, very engaging and reasonable. His Na is now at 139 so we will discontinue hypertonic saline.
[2018-04-29] MEDS: Famotidine 20 MG/2 ML SDV IVPUSH SCH ×2 (09:18→20:20)
[2018-04-29] MEDS: Cholecalciferol (Vitamin D3) 1,000 Unit Tab PO SCH (09:18)
[2018-04-29] MEDS ORDERED: Modafinil 200 MG Tab PO ONE (12:31)
[2018-04-29] MEDS: NS + KCl 20mEq/L 1,000 ML IV SCH (12:59)
[2018-04-29] MEDS ORDERED: Magnesium Oxide 400 MG Tab PO ONE ×2 (14:00→16:30)
--- NOTE | 2018-04-29 16:46 | PCM.PN ---
- General Info Date of Service: 04/29/18 Functional Status: Reports: Pain Controlled, Tolerating Diet, Ambulating, Urinating - Review of Systems General: Reports: No Symptoms HEENT: Reports: No Symptoms Pulmonary: Reports: No Symptoms Cardiovascular: Reports: No Symptoms Gastrointestinal: Reports: No Symptoms Genitourinary: Reports: No Symptoms Musculoskeletal: Reports: No Symptoms Skin: Reports: No Symptoms Neurological: Reports: No Symptoms Psychiatric: Reports: No Symptoms - Patient Data Vitals - Most Recent: Last Vital Signs Temp 36.7 C 04/29/18 15:42 Pulse 57 L 04/29/18 15:42 Resp 20 04/29/18 15:42 BP 105/55 L 04/29/18 15:42 Pulse Ox 99 04/29/18 15:42 Weight - Most Recent: 87.952 kg I&O - Last 24 Hours: Intake & Output 04/29/18 04/29/18 04/29/18 06:59 14:59 22:59 Intake Total 5672 064 8385 Output Total 400 400 Balance 353 621 [id number] Lab Results Last 24 Hours: Laboratory Results - last 24 hr 04/28/18 04/28/18 04/28/18 Range/Units 06:00 13:45 22:29 WBC (4.23-9.07) K/mm3 RBC (4.63-6.08) M/mm3 Hgb (13.7-17.5) gm/L Hct (40.1-51.0) % MCV (79.0-92.2) fl MCH (25.7-32.2) pg MCHC (32.2-35.5) g/dl RDW Std Deviation (35.1-43.9) fL Plt Count (163-337) K/mm3 MPV (9.4-12.3) fl Neut % (Auto) (34.0-67.9) % Lymph % (Auto) (21.8-53.1) % [place] % (Auto) (5.3-12.2) % Eos % (Auto) (0.8-7.0) Baso % (Auto) (0.1-1.2) % Neut # (Auto) (1.78-5.38) K/mm3 Lymph # (Auto) (1.32-3.57) K/mm3 [place] # (Auto) (0.30-0.82) K/mm3 Eos # (Auto) (0.04-0.54) K/mm3 Baso # (Auto) (0.01-0.08) K/mm3 Manual Slide Review ESR (0-15) mm/hr Sodium 138 (136-145) mEq/L Potassium 3.6 (3.5-5.1) mEq/L Chloride 103 (98-107) mEq/L Carbon Dioxide 24 (21-32) mEq/L Anion Gap 14.6 (5-15) BUN 5 L (7-18) mg/dL Creatinine 0.9 (0.7-1.3) mg/dL Est Cr Clr Drug Dosing 136.13 mL/min Estimated GFR (MDRD) > 60 (>60) mL/min BUN/Creatinine Ratio 5.6 L (14-18) Glucose 93 (74-106) mg/dL Calcium 8.6 (8.5-10.1) mg/dL Magnesium (1.8-2.4) mg/dl C-Reactive Protein (<1.0) mg/dL Urine Color Yellow (Yellow) Urine Appearance Clear (Clear) Urine pH 6.0 (5.0-8.0) Ur Specific [place] > or = 1.030 (1.005-1.030) Urine Protein 1+ H (Negative) Urine Glucose (UA) Negative (Negative) Urine Ketones 2+ H (Negative) Urine Occult Blood Trace-lysed H (Negative) Urine Nitrite Negative (Negative) Urine Bilirubin 1+ H (Negative) Urine Urobilinogen 0.2 (0.2-1.0) Ur Leukocyte Esterase Negative (Negative) Urine RBC 0-5 (0-5) /hpf Urine WBC 0-5 (0-5) /hpf Ur Epithelial Cells Not seen (0-5) /hpf Urine Bacteria Not seen (FEW) /hpf Fine Granular Casts 0-5 (0-5) /lpf Urine Mucus Not seen (FEW) /hpf C.difficile 027-NAP1-B1 C. difficile Tox (PCR) MRSA (PCR) Negative 04/28/18 04/28/18 04/28/18 Range/Units 22:49 22:49 22:49 WBC 3.86 L (4.23-9.07) K/mm3 RBC 4.54 L (4.63-6.08) M/mm3 Hgb 12.8 L (13.7-17.5) gm/L Hct 37.2 L (40.1-51.0) % MCV 81.9 (79.0-92.2) fl MCH 28.2 (25.7-32.2) pg MCHC 34.4 (32.2-35.5) g/dl RDW Std Deviation 39.8 (35.1-43.9) fL Plt Count 134 L (163-337) K/mm3 MPV 9.5 (9.4-12.3) fl Neut % (Auto) 71.7 H (34.0-67.9) % Lymph % (Auto) 12.2 L (21.8-53.1) % [place] % (Auto) 16.1 H (5.3-12.2) % Eos % (Auto) 0 L (0.8-7.0) Baso % (Auto) 0.0 L (0.1-1.2) % Neut # (Auto) 2.77 (1.78-5.38) K/mm3 Lymph # (Auto) 0.47 L (1.32-3.57) K/mm3 [place] # (Auto) 0.62 (0.30-0.82) K/mm3 Eos # (Auto) 0.00 L (0.04-0.54) K/mm3 Baso # (Auto) 0.00 L (0.01-0.08) K/mm3 Manual Slide Review Normal smear ESR 8 (0-15) mm/hr Sodium (136-145) mEq/L Potassium (3.5-5.1) mEq/L Chloride (98-107) mEq/L Carbon Dioxide (21-32) mEq/L Anion Gap (5-15) BUN (7-18) mg/dL Creatinine (0.7-1.3) mg/dL Est Cr Clr Drug Dosing mL/min Estimated GFR (MDRD) (>60) mL/min BUN/Creatinine Ratio (14-18) Glucose (74-106) mg/dL Calcium (8.5-10.1) mg/dL Magnesium (1.8-2.4) mg/dl C-Reactive Protein 6.1 H* (<1.0) mg/dL Urine Color (Yellow) Urine Appearance (Clear) Urine pH (5.0-8.0) Ur Specific [place] (1.005-1.030) Urine Protein (Negative) Urine Glucose (UA) (Negative) Urine Ketones (Negative) Urine Occult Blood (Negative) Urine Nitrite (Negative) Urine Bilirubin (Negative) Urine Urobilinogen (0.2-1.0) Ur Leukocyte Esterase (Negative) Urine RBC (0-5) /hpf Urine WBC (0-5) /hpf Ur Epithelial Cells (0-5) /hpf Urine Bacteria (FEW) /hpf Fine Granular Casts (0-5) /lpf Urine Mucus (FEW) /hpf C.difficile 027-NAP1-B1 C. difficile Tox (PCR) MRSA (PCR) 04/28/18 04/29/18 04/29/18 Range/Units 23:45 05:57 05:57 WBC 3.23 L (4.23-9.07) K/mm3 RBC 4.31 L (4.63-6.08) M/mm3 Hgb 12.1 L (13.7-17.5) gm/L Hct 36.1 L (40.1-51.0) % MCV 83.8 (79.0-92.2) fl MCH 28.1 (25.7-32.2) pg MCHC 33.5 (32.2-35.5) g/dl RDW Std Deviation 41.1 (35.1-43.9) fL Plt Count 115 L (163-337) K/mm3 MPV 9.9 (9.4-12.3) fl Neut % (Auto) 68.4 H (34.0-67.9) % Lymph % (Auto) 15.5 L (21.8-53.1) % [place] % (Auto) 15.8 H (5.3-12.2) % Eos % (Auto) 0 L (0.8-7.0) Baso % (Auto) 0.0 L (0.1-1.2) % Neut # (Auto) 2.21 (1.78-5.38) K/mm3 Lymph # (Auto) 0.50 L (1.32-3.57) K/mm3 [place] # (Auto) 0.51 (0.30-0.82) K/mm3 Eos # (Auto) 0.00 L (0.04-0.54) K/mm3 Baso # (Auto) 0.00 L (0.01-0.08) K/mm3 Manual Slide Review Normal smear ESR (0-15) mm/hr Sodium 139 (136-145) mEq/L Potassium 3.9 (3.5-5.1) mEq/L Chloride 106 (98-107) mEq/L Carbon Dioxide 25 (21-32) mEq/L Anion Gap 11.9 (5-15) BUN 6 L (7-18) mg/dL Creatinine 0.9 (0.7-1.3) mg/dL Est Cr Clr Drug Dosing 136.13 mL/min Estimated GFR (MDRD) > 60 (>60) mL/min BUN/Creatinine Ratio 6.7 L (14-18) Glucose 79 (74-106) mg/dL Calcium 8.3 L (8.5-10.1) mg/dL Magnesium 1.7 L (1.8-2.4) mg/dl C-Reactive Protein 7.0 H* (<1.0) mg/dL Urine Color (Yellow) Urine Appearance (Clear) Urine pH (5.0-8.0) Ur Specific [place] (1.005-1.030) Urine Protein (Negative) Urine Glucose (UA) (Negative) Urine Ketones (Negative) Urine Occult Blood (Negative) Urine Nitrite (Negative) Urine Bilirubin (Negative) Urine Urobilinogen (0.2-1.0) Ur Leukocyte Esterase (Negative) Urine RBC (0-5) /hpf Urine WBC (0-5) /hpf Ur Epithelial Cells (0-5) /hpf Urine Bacteria (FEW) /hpf Fine Granular Casts (0-5) /lpf Urine Mucus (FEW) /hpf C.difficile 027-NAP1-B1 Presumptive negative C. difficile Tox (PCR) Negative MRSA (PCR) [place] Results Last 24 Hours: Microbiology 04/28/18 13:45 MRSA Culture - Final Nasal, Unspecified NO MRSA ISOLATED 04/28/18 15:03 Aerobic Blood Culture - Preliminary Blood - Venous - Lab Draw NO GROWTH AFTER 1 DAY Anaerobic Blood Culture - Final 04/28/18 14:50 Aerobic Blood Culture - Preliminary Blood - Venous NO GROWTH AFTER 1 DAY Anaerobic Blood Culture - Preliminary NO GROWTH AFTER 1 DAY 04/28/18 15:23 Influenza Type A Antigen Screen - Final Nasal, Unspecified NEGATIVE INFLUENZA A VIRUS AG Influenza Type B Antigen Screen - Final NEGATIVE INFLUENZA B VIRUS AG Med Orders - Current: Current Medications Acetaminophen (Tylenol) 650 mg PO Q4H PRN PRN Reason: Pain (Mild 1-3)/fever Acetaminophen (Tylenol) 650 mg RECTAL Q4H PRN PRN Reason: Pain (mild 1-3) Last Admin: 04/28/18 22:03 Dose: 650 mg Hydrocodone Bitart/Acetaminophen ([place] 325-5 Mg) 1 tab PO Q4H PRN PRN Reason: Pain (moderate 4-6) Albuterol/Ipratropium (Duoneb 3.0-0.5 Mg/3 Ml) 3 ml NEB Q4H PRN PRN Reason: Shortness Of Breath/wheezing Bisacodyl (Dulcolax) 5 mg PO DAILY PRN PRN Reason: Constipation Cholecalciferol (Vitamin D3) 1,000 units PO DAILY [facility] Last Admin: 04/29/18 09:18 Dose: 1,000 units Docusate Sodium (Colace) 100 mg PO BID PRN PRN Reason: Constipation Famotidine (Pepcid) 20 mg IVPUSH BID [facility] Stop: 05/01/18 21:01 Last Admin: 04/29/18 09:18 Dose: 20 mg Ferrous Sulfate (Ferrous Sulfate) 325 mg PO ACBREAKFAST [facility] Hydralazine HCl (Apresoline) 20 mg IVPUSH Q4H PRN PRN Reason: Hypertension Hydromorphone HCl (Dilaudid) 0.25 mg IVPUSH Q2H PRN PRN Reason: Pain (severe 7-10) Vancomycin HCl 1 gm/Vancomycin HCl 250 mg/ Sodium Chloride 500 mls @ 333.025 mls/hr IV Q8H [facility] Stop: 04/29/18 21:00 Last Admin: 04/29/18 11:06 Dose: 333.025 mls/hr Levofloxacin/Dextrose 500 mg/ (Premix) 100 mls @ 100 mls/hr IV DAILY@1999 [facility] Last Admin: 04/29/18 00:39 Dose: 100 mls/hr Piperacillin Sod/Tazobactam (Sod 4.5 gm/ Sodium Chloride) 100 mls @ 25 mls/hr IV Q8H [facility] Last Admin: 04/29/18 13:02 Dose: 25 mls/hr Potassium Chloride/Sodium Chloride (Normal Saline With 20 Meq Kcl) 1,000 mls @ 75 mls/hr IV ASDIRECTED [facility] Last Admin: 04/29/18 12:59 Dose: 75 mls/hr Vancomycin HCl 1 gm/Vancomycin HCl 250 mg/ Sodium Chloride 250 mls @ 166.667 mls/hr IV Q8H [facility] Lorazepam (Ativan) 2 mg IVPUSH Q4H PRN PRN Reason: Seizures Lorazepam (Ativan) 0.5 mg IV Q6H PRN PRN Reason: Anxiety Metoprolol Tartrate (Lopressor) 5 mg IVPUSH Q4H PRN PRN Reason: Tachycardia Miscellaneous Information (Remove Patch) 1 ea TRDERM ONETIME ONE Stop: 05/01/18 21:01 Senna/Docusate Sodium (Senna Plus) 1 tab PO BID PRN PRN Reason: Constipation Vancomycin HCl (Pharmacy To Dose - Vancomycin) 0 dose .XX ASDIRECTED PRN PRN Reason: RX TO DOSE VANCO Discontinued Medications Sodium Chloride (Normal Saline) 1,000 mls @ 999 mls/hr IV ONETIME ONE Stop: 04/28/18 07:45 Last Admin: 04/28/18 06:45 Dose: 999 mls/hr Sodium Chloride (Normal Saline) 1,000 mls [facility] Admin: 04/28/18 09:38 Dose: 150 mls/hr Sodium Chloride (Sodium Chloride 3%) 250 mls @ 7.5 mls/hr IV ONETIME ONE Stop: 04/29/18 23:04 Last Admin: 04/28/18 14:46 Dose: 7.5 mls/hr Piperacillin Sod/Tazobactam (Sod 4.5 gm/ Sodium Chloride) 100 mls @ 200 mls/hr IV ONETIME ONE Stop: 04/28/18 23:14 Last Admin: 04/28/18 23:51 Dose: 200 mls/hr Magnesium Oxide (Magnesium Oxide) 800 mg PO ONETIME ONE Stop: 04/29/18 14:01 Last Admin: 04/29/18 16:29 Dose: 800 mg Magnesium Oxide (Magnesium Oxide) 800 mg PO ONETIME ONE Stop: 04/29/18 16:31 Last Admin: 04/29/18 16:30 Dose: Not Given Magnesium Sulfate (Pharmacy To Dose - Magnesium Replacement) 0 dose .XX ASDIRECTED PRN PRN Reason: RX TO WATCH MAG Metoclopramide HCl (Reglan) 5 mg IVPUSH Q6H [facility] Stop: 04/29/18 18:16 Last Admin: 04/29/18 05:46 Dose: 5 mg Modafinil (Provigil) 100 mg PO DAILY ONE Stop: 04/29/18 12:32 Non-Formulary Medication (Sodium Chloride/Kcl [Thermotabs]) 1 each PO TID [facility] Ondansetron HCl (Zofran) 4 mg IV Q6H PRN PRN Reason: Nausea/Vomiting Oral Electrolytes (Thermotabs) 1 each PO TID [facility] Pharmacy Consult (Consult To Pharmacy) 1 each .XX ASDIRECTED [facility] Potassium Chloride (Pharmacy To Dose - Potassium Replacement) 0 dose .XX ASDIRECTED PRN PRN Reason: RX TO WATCH K Potassium Chloride (Klor-Con M20) 40 meq PO Q4H [facility] Stop: 04/28/18 17:01 Last Admin: 04/28/18 16:26 Dose: Not Given Scopolamine (Transderm-Scop) 1.5 mg TRDERM ONETIME ONE Stop: 04/28/18 23:09 Last Admin: 04/28/18 23:52 Dose: 1.5 mg - Exam Quality Assessment: DVT Prophylaxis General: Alert, Oriented, Cooperative, No Acute Distress HEENT: Pupils Equal, Pupils Reactive, EOMI Neck: Trachea Midline, No JVD Lungs: Normal Respiratory Effort Cardiovascular: Regular Rate, Regular Rhythm GI/Abdominal Exam: Normal Bowel Sounds, Soft, Non-Tender, No Organomegaly, No Distention (Male) Exam: Deferred Back Exam: Normal Inspection Extremities: Normal Inspection, Non-Tender, Normal Capillary Refill Skin: Warm Neurological: No New Focal Deficit Psy/Mental Status: Alert, Normal Affect, Normal Mood - Problem List Review Problem List Initiated/Reviewed/Updated: Yes - My Orders Last 24 Hours: My Active Orders 04/29/18 Lunch Full Liquid Diet [DIET] - Plan Plan:: Assessment/Plan: Acute: Encephalopathy - Suspect 2/2 Toxic/Metabolic +/- post ictal state - Heat CT scan shows no acute intra-cranial abnormality but not posterior scalp hematoma - He is easily arousable and open his eyes; unlikely encephalitis or meningitis at this point - Aspiration Precaution Sepsis from Gastroenteritis w/ Possible Ileus; improved, will start clear liquids - WBC 3.47 yesterday; now 5.05 - Fever with 38.3C - Hypotensive with documented BPs of 90/29 mmHg and 104/57 mmHg - Influenza screening negative - LA is 1.1 - CXR shows bibasilar atelectasis - UA unable to obtain; not cooperative - Blood culture and RVP - Repeat CBC and ordered Procalcitonin, ESR and CRP - IV Zosyn/Vancomycin and Levaquin for pharmacy to dose (has a hx/o Lycopenia which put him at increased risk for infection) Gastroenteritis - He has been vomiting numerous times - Ileostomy shows liquid stools - Fecal Cx/Sx plus C. Diff test - IV hydration and PRN anti-emesis Ileus S/p Hx/o SBO with Ileostomy - He has not had much gas in his ileostomy bag (flat) - Greenish colored liquid fecal matter - Ambulate and prokinetic agent Probable Seizure - Evidenced by posterior scalp hematoma on head CT scan - CK is 813 - He carries a hx/o Seizure Disorder and Hydrocephalus Congenital - Risk factor: Hyponatremia w/ a sodium level of 118-121 - Low sodium level known to cause seizure and in the setting of infection the threshold is lower - Unable to take oral salt tablets so we switched to 3% Hypertonic Solution with slow infusion (pharmacy to dose) - PRN Ativan for abortive seizure - Seizure Precautions - Offered EEG but unlikely he will cooperate with the procedure Hyponatremia - Na 118--> 121-->139 - He is on SSRI a known drug that could cause hyponatremia; will hold it for now - Likely 2/2 GI loss and SSRI - IVF fluids and 3% Hypertonic Saline slow infusion - Daily labs Chronic: PVD Constipation Scoliosis Seizure Disorder Hx/o Congenital Hydrocephalus Intellectual Disability Anxiety Depression Pseudolymphoma Hx/o Lycopenia Plan: Admit to [facility] w/ Tele Routine AM Labs Resume Home Meds Aspiration/Seizure Precaution IS as directed IV fluids for hydration PT/OT when appropriate SW/CM for d/c planning Code status: DNR/DNI Updated family at bedside about what diagnoses, test and imaging results, and treatment plan. Informed his family about my theory. He likely has some kind of a gastroenteritis which caused sodium loss. This further worsened by his Paxil, an SSRI which is known to cause hyponatremia. With low level of Na, he developed seizure and had an unwitnessed fall. As he fell down, the back of his head hit something which would explain the posterior scalp hematoma on head CT scan. The bibasilar atelectasis on chest x-ay, can be best explained by aspiration at the time he was having a seizure. He likely had poor control of his oral secretions at the time of seizure thus it went into his lungs which now put him at risk for pneumonia.
[2018-04-30] MEDS: Vancomycin 1 GM, Vancomycin 250 MG in Sodium Chloride 0.9% 250 ML IV SCH ×2 (01:17→11:26)
[2018-04-30] MEDS: NS + KCl 20mEq/L 1,000 ML IV SCH ×2 (03:41→15:37)
[2018-04-30] MEDS: Piperacillin/Tazobactam 4.5 GM in Sodium Chloride 0.9% 100 ML IV SCH (04:09)
[2018-04-30] MEDS: Ferrous Sulfate 325 MG Tab PO SCH (06:27)
[2018-04-30] MEDS: Cholecalciferol (Vitamin D3) 1,000 Unit Tab PO SCH (08:40)
[2018-04-30] MEDS: Famotidine 20 MG/2 ML SDV IVPUSH SCH (08:41)
[2018-04-30] MEDS ORDERED: Magnesium Sulfate/Water 2 GM in Premix Bag 1 BAG IV ONE (11:03)
--- NOTE | 2018-04-30 16:16 | PCM.PN ---
- General Info Date of Service: 04/30/18 Functional Status: Reports: Pain Controlled, Tolerating Diet, Ambulating, Urinating - Review of Systems General: Reports: No Symptoms HEENT: Reports: No Symptoms Pulmonary: Reports: No Symptoms Cardiovascular: Reports: No Symptoms Gastrointestinal: Reports: No Symptoms Genitourinary: Reports: No Symptoms Musculoskeletal: Reports: No Symptoms Skin: Reports: No Symptoms Neurological: Reports: No Symptoms Psychiatric: Reports: No Symptoms - Patient Data Vitals - Most Recent: Last Vital Signs Temp 37.3 C 04/30/18 13:33 Pulse 64 04/30/18 13:33 Resp 14 04/30/18 13:33 BP 120/53 L 04/30/18 13:33 Pulse Ox 100 04/30/18 13:33 Weight - Most Recent: 87.952 kg I&O - Last 24 Hours: Intake & Output 04/30/18 04/30/18 04/30/18 06:59 14:59 22:59 Intake Total 1408 300 320 Output Total 1200 Balance 208 300 320 Lab Results Last 24 Hours: Laboratory Results - last 24 hr 04/28/18 04/28/18 04/30/18 Range/Units 15:23 22:49 06:52 WBC 3.65 L (4.23-9.07) K/mm3 RBC 4.55 L (4.63-6.08) M/mm3 Hgb 12.8 L (13.7-17.5) gm/L Hct 38.7 L (40.1-51.0) % MCV 85.1 (79.0-92.2) fl MCH 28.1 (25.7-32.2) pg MCHC 33.1 (32.2-35.5) g/dl RDW Std Deviation 42.8 (35.1-43.9) fL Plt Count 87 L (163-337) K/mm3 MPV 10.0 (9.4-12.3) fl Neut % (Auto) 63.8 (34.0-67.9) % Lymph % (Auto) 18.4 L (21.8-53.1) % [place] % (Auto) 17.0 H (5.3-12.2) % Eos % (Auto) 0.5 L (0.8-7.0) Baso % (Auto) 0.3 (0.1-1.2) % Neut # (Auto) 2.33 (1.78-5.38) K/mm3 Lymph # (Auto) 0.67 L (1.32-3.57) K/mm3 [place] # (Auto) 0.62 (0.30-0.82) K/mm3 Eos # (Auto) 0.02 L (0.04-0.54) K/mm3 Baso # (Auto) 0.01 (0.01-0.08) K/mm3 Manual Slide Review Abnormal smear Sodium (136-145) mEq/L Potassium (3.5-5.1) mEq/L Chloride (98-107) mEq/L Carbon Dioxide (21-32) mEq/L Anion Gap (5-15) BUN (7-18) mg/dL Creatinine (0.7-1.3) mg/dL Est Cr Clr Drug Dosing mL/min Estimated GFR (MDRD) (>60) mL/min BUN/Creatinine Ratio (14-18) Glucose (74-106) mg/dL Calcium (8.5-10.1) mg/dL Magnesium (1.8-2.4) mg/dl C-Reactive Protein (<1.0) mg/dL Procalcitonin <0.05 (<0.10) ng/mL Vancomycin Trough (10.0-20.0) Adenovirus (PCR) Not detected (Not Detected) B. pertussis DNA (PCR) Not detected (Not Detected) B.parapertussis DNA PCR Not detected (Not Detected) C. pneumoniae DNA (PCR) Not detected (Not Detected) Coronavirus (PCR) Not detected (Not Detected) Human Metapneumovir PCR Not detected (Not Detected) Influenza A (RT-PCR) Not detected (Not Detected) Influenza B (RT-PCR) Not detected (Not Detected) M. pneumoniae (PCR) Not detected (Not Detected) Parainfluen 1,2,3,4 PCR Not detected (Not Detected) RSV (PCR) Not detected (Not Detected) Entero/Rhino (PCR) Not detected (Not Detected) 04/30/18 04/30/18 Range/Units 06:52 09:56 WBC (4.23-9.07) K/mm3 RBC (4.63-6.08) M/mm3 Hgb (13.7-17.5) gm/L Hct (40.1-51.0) % MCV (79.0-92.2) fl MCH (25.7-32.2) pg MCHC (32.2-35.5) g/dl RDW Std Deviation (35.1-43.9) fL Plt Count (163-337) K/mm3 MPV (9.4-12.3) fl Neut % (Auto) (34.0-67.9) % Lymph % (Auto) (21.8-53.1) % [place] % (Auto) (5.3-12.2) % Eos % (Auto) (0.8-7.0) Baso % (Auto) (0.1-1.2) % Neut # (Auto) (1.78-5.38) K/mm3 Lymph # (Auto) (1.32-3.57) K/mm3 [place] # (Auto) (0.30-0.82) K/mm3 Eos # (Auto) (0.04-0.54) K/mm3 Baso # (Auto) (0.01-0.08) K/mm3 Manual Slide Review Sodium 139 (136-145) mEq/L Potassium 4.0 (3.5-5.1) mEq/L Chloride 107 (98-107) mEq/L Carbon Dioxide 21 (21-32) mEq/L Anion Gap 15.0 (5-15) BUN 6 L (7-18) mg/dL Creatinine 1.0 (0.7-1.3) mg/dL Est Cr Clr Drug Dosing 119.94 mL/min Estimated GFR (MDRD) > 60 (>60) mL/min BUN/Creatinine Ratio 6.0 L (14-18) Glucose 82 (74-106) mg/dL Calcium 8.9 (8.5-10.1) mg/dL Magnesium 1.6 L (1.8-2.4) mg/dl C-Reactive Protein 4.9 H* (<1.0) mg/dL Procalcitonin (<0.10) ng/mL Vancomycin Trough 18.1 (10.0-20.0) Adenovirus (PCR) (Not Detected) B. pertussis DNA (PCR) (Not Detected) B.parapertussis DNA PCR (Not Detected) C. pneumoniae DNA (PCR) (Not Detected) Coronavirus (PCR) (Not Detected) Human Metapneumovir PCR (Not Detected) Influenza A (RT-PCR) (Not Detected) Influenza B (RT-PCR) (Not Detected) M. pneumoniae (PCR) (Not Detected) Parainfluen 1,2,3,4 PCR (Not Detected) RSV (PCR) (Not Detected) Entero/Rhino (PCR) (Not Detected) [place] Results Last 24 Hours: Microbiology 04/28/18 15:03 Aerobic Blood Culture - Preliminary Blood - Venous - Lab Draw NO GROWTH AFTER 2 DAYS Anaerobic Blood Culture - Final 04/28/18 14:50 Aerobic Blood Culture - Preliminary Blood - Venous NO GROWTH AFTER 2 DAYS Anaerobic Blood Culture - Preliminary NO GROWTH AFTER 2 DAYS 04/28/18 23:45 Stool Culture - Preliminary Stool / Feces Shiga Toxin I - Final NEGATIVE FOR SHIGA TOXIN 1 Shiga Toxin II - Final NEGATIVE FOR SHIGA TOXIN 2 04/28/18 13:45 MRSA Culture - Final Nasal, Unspecified NO MRSA ISOLATED Med Orders - Current: Current Medications Acetaminophen (Tylenol) 650 mg PO Q4H PRN PRN Reason: Pain (Mild 1-3)/fever Acetaminophen (Tylenol) 650 mg RECTAL Q4H PRN PRN Reason: Pain (mild 1-3) Last Admin: 04/28/18 22:03 Dose: 650 mg Hydrocodone Bitart/Acetaminophen ([place] 325-5 Mg) 1 tab PO Q4H PRN PRN Reason: Pain (moderate 4-6) Albuterol/Ipratropium (Duoneb 3.0-0.5 Mg/3 Ml) 3 ml NEB Q4H PRN PRN Reason: Shortness Of Breath/wheezing Bisacodyl (Dulcolax) 5 mg PO DAILY PRN PRN Reason: Constipation Cholecalciferol (Vitamin D3) 1,000 units PO DAILY [facility] Last Admin: 04/30/18 08:40 Dose: 1,000 units Docusate Sodium (Colace) 100 mg PO BID PRN PRN Reason: Constipation Famotidine (Pepcid) 20 mg PO BID JOSE Ferrous Sulfate (Ferrous Sulfate) 325 mg PO ACBREAKFAST [facility] Last Admin: 04/30/18 06:27 Dose: 325 mg Hydralazine HCl (Apresoline) 20 mg IVPUSH Q4H PRN PRN Reason: Hypertension Hydromorphone HCl (Dilaudid) 0.25 mg IVPUSH Q2H PRN PRN Reason: Pain (severe 7-10) Levofloxacin/Dextrose 500 mg/ (Premix) 100 mls @ 100 mls/hr IV DAILY@1999 [facility] Last Admin: 04/29/18 20:20 Dose: 100 mls/hr Potassium Chloride/Sodium Chloride (Normal Saline With 20 Meq Kcl) 1,000 mls @ 75 mls/hr IV ASDIRECTED [facility] Last Admin: 04/30/18 15:37 Dose: 75 mls/hr Lorazepam (Ativan) 2 mg IVPUSH Q4H PRN PRN Reason: Seizures Lorazepam (Ativan) 0.5 mg IV Q6H PRN PRN Reason: Anxiety Metoprolol Tartrate (Lopressor) 5 mg IVPUSH Q4H PRN PRN Reason: Tachycardia Miscellaneous Information (Remove Patch) 1 ea TRDERM ONETIME ONE Stop: 05/01/18 21:01 Senna/Docusate Sodium (Senna Plus) 1 tab PO BID PRN PRN Reason: Constipation Discontinued Medications Famotidine (Pepcid) 20 mg IVPUSH BID [facility] Stop: 05/01/18 21:01 Last Admin: 04/30/18 08:41 Dose: 20 mg Sodium Chloride (Normal Saline) 1,000 mls @ 999 mls/hr IV ONETIME ONE Stop: 04/28/18 07:45 Last Admin: 04/28/18 06:45 Dose: 999 mls/hr Sodium Chloride (Normal Saline) 1,000 mls @ 150 mls[facility]hr [facility] Last Admin: 04/28/18 09:38 Dose: 150 mls/hr Sodium Chloride (Sodium Chloride 3%) 250 mls @ 7.5 mls/hr IV ONETIME ONE Stop: 04/29/18 23:04 Last Admin: 04/28/18 14:46 Dose: 7.5 mls/hr Piperacillin Sod/Tazobactam (Sod 4.5 gm/ Sodium Chloride) 100 mls @ 200 mls/hr IV ONETIME ONE Stop: 04/28/18 23:14 Last Admin: 04/28/18 23:51 Dose: 200 mls/hr Vancomycin HCl 1 gm/Vancomycin HCl 250 mg/ Sodium Chloride 500 mls @ 333.025 mls/hr IV Q8H [facility] Stop: 04/29/18 21:00 Last Admin: 04/29/18 18:08 Dose: 333.025 mls/hr Piperacillin Sod/Tazobactam (Sod 4.5 gm/ Sodium Chloride) 100 mls @ 25 mls/hr IV Q8H [facility] Last Admin: 04/30/18 04:09 Dose: 25 mls/hr Vancomycin HCl 1 gm/Vancomycin HCl 250 mg/ Sodium Chloride 250 mls @ 166.667 mls/hr IV Q8H [facility] Last Admin: 04/30/18 11:26 Dose: Not Given Magnesium Sulfate 2 gm/ Premix 50 mls @ 25 mls/hr IV ONETIME ONE Stop: 04/30/18 13:02 Last Admin: 04/30/18 11:35 Dose: 25 mls/hr Magnesium Oxide (Magnesium Oxide) 800 mg PO ONETIME ONE Stop: 04/29/18 14:01 Last Admin: 04/29/18 16:29 Dose: 800 mg Magnesium Oxide (Magnesium Oxide) 800 mg PO ONETIME ONE Stop: 04/29/18 16:31 Last Admin: 04/29/18 16:30 Dose: Not Given Magnesium Sulfate (Pharmacy To Dose - Magnesium Replacement) 0 dose .XX ASDIRECTED PRN PRN Reason: RX TO WATCH MAG Metoclopramide HCl (Reglan) 5 mg IVPUSH Q6H [facility] Stop: 04/29/18 18:16 Last Admin: 04/29/18 05:46 Dose: 5 mg Modafinil (Provigil) 100 mg PO DAILY ONE Stop: 04/29/18 12:32 Non-Formulary Medication (Sodium Chloride/Kcl [Thermotabs]) 1 each PO TID [facility] Ondansetron HCl (Zofran) 4 mg IV Q6H PRN PRN Reason: Nausea/Vomiting Oral Electrolytes (Thermotabs) 1 each PO TID [facility] Pharmacy Consult (Consult To Pharmacy) 1 each .XX ASDIRECTED [facility] Potassium Chloride (Pharmacy To Dose - Potassium Replacement) 0 dose .XX ASDIRECTED PRN PRN Reason: RX TO WATCH K Potassium Chloride (Klor-Con M20) 40 meq PO Q4H [facility] Stop: 04/28/18 17:01 Last Admin: 04/28/18 16:26 Dose: Not Given Scopolamine (Transderm-Scop) 1.5 mg TRDERM ONETIME ONE Stop: 04/28/18 23:09 Last Admin: 04/28/18 23:52 Dose: 1.5 mg Vancomycin HCl (Pharmacy To Dose - Vancomycin) 0 dose .XX ASDIRECTED PRN PRN Reason: RX TO DOSE VANCO - Exam Quality Assessment: DVT Prophylaxis General: Alert, Oriented, Cooperative, No Acute Distress HEENT: Pupils Equal, Pupils Reactive, EOMI Neck: Trachea Midline, No JVD Lungs: Normal Respiratory Effort Cardiovascular: Regular Rate, Regular Rhythm GI/Abdominal Exam: Normal Bowel Sounds, Soft, Non-Tender, No Distention (Male) Exam: Deferred Back Exam: Normal Inspection Extremities: Normal Inspection, Non-Tender, Normal Capillary Refill Skin: Warm Neurological: No New Focal Deficit Psy/Mental Status: Alert, Normal Affect, Normal Mood - Problem List Review Problem List Initiated/Reviewed/Updated: Yes - My Orders Last 24 Hours: My Active Orders 04/30/18 21:00 Famotidine [Pepcid] 20 mg PO BID 04/30/18 Lunch Soft Diet [DIET] - Plan Plan:: Assessment/Plan: Acute: Encephalopathy - Suspect 2/2 Toxic/Metabolic +/- post ictal state - Heat CT scan shows no acute intra-cranial abnormality but not posterior scalp hematoma - He is easily arousable and open his eyes; unlikely encephalitis or meningitis at this point - Aspiration Precaution Sepsis from Gastroenteritis w/ Possible Ileus; improved, will start clear liquids - WBC 3.47 yesterday; now 5.05 - Fever with 38.3C - Hypotensive with documented BPs of 90/29 mmHg and 104/57 mmHg - Influenza screening negative - LA is 1.1 - CXR shows bibasilar atelectasis - UA unable to obtain; not cooperative - Blood culture and RVP - Repeat CBC and ordered Procalcitonin, ESR and CRP - IV Zosyn/Vancomycin and Levaquin for pharmacy to dose (has a hx/o Lycopenia which put him at increased risk for infection) Gastroenteritis - He has been vomiting numerous times - Ileostomy shows liquid stools - Fecal Cx/Sx plus C. Diff test - IV hydration and PRN anti-emesis Ileus S/p Hx/o SBO with Ileostomy - He has not had much gas in his ileostomy bag (flat) - Greenish colored liquid fecal matter - Ambulate and prokinetic agent Probable Seizure - Evidenced by posterior scalp hematoma on head CT scan - CK is 813 - He carries a hx/o Seizure Disorder and Hydrocephalus Congenital - Risk factor: Hyponatremia w/ a sodium level of 118-121 - Low sodium level known to cause seizure and in the setting of infection the threshold is lower - Unable to take oral salt tablets so we switched to 3% Hypertonic Solution with slow infusion (pharmacy to dose) - PRN Ativan for abortive seizure - Seizure Precautions - Offered EEG but unlikely he will cooperate with the procedure Hyponatremia - Na 118--> 121-->139 - He is on SSRI a known drug that could cause hyponatremia; will hold it for now - Likely 2/2 GI loss and SSRI - IVF fluids and 3% Hypertonic Saline slow infusion - Daily labs Chronic: PVD Constipation Scoliosis Seizure Disorder Hx/o Congenital Hydrocephalus Intellectual Disability Anxiety Depression Pseudolymphoma Hx/o Lycopenia Plan: Admit to [facility] w/ Tele Routine AM Labs Resume Home Meds Aspiration/Seizure Precaution IS as directed IV fluids for hydration PT/OT when appropriate SW/CM for d/c planning Code status: DNR/DNI Updated family at bedside about what diagnoses, test and imaging results, and treatment plan. Informed his family about my theory. He likely has some kind of a gastroenteritis which caused sodium loss. This further worsened by his Paxil, an SSRI which is known to cause hyponatremia. With low level of Na, he developed seizure and had an unwitnessed fall. As he fell down, the back of his head hit something which would explain the posterior scalp hematoma on head CT scan. The bibasilar atelectasis on chest x-ay, can be best explained by aspiration at the time he was having a seizure. He likely had poor control of his oral secretions at the time of seizure thus it went into his lungs which now put him at risk for pneumonia. DC 24-48 hours, advance diet as tolerated.
[2018-04-30] MEDS: Saccharomyces Boulardii (Probiotic) 250 MG Cap PO SCH (18:09)
[2018-04-30] MEDS: Famotidine 20 MG Tab PO SCH (20:10)
[2018-04-30] MEDS: Levofloxacin/Dextrose 5%-Water 500 MG in Premix Bag 1 BAG IV SCH (20:10)
[2018-05-01] MEDS: NS + KCl 20mEq/L 1,000 ML IV SCH (03:28)
[2018-05-01] MEDS: Ferrous Sulfate 325 MG Tab PO SCH (06:13)
[2018-05-01] MEDS: Saccharomyces Boulardii (Probiotic) 250 MG Cap PO SCH (09:11)
[2018-05-01] MEDS: Famotidine 20 MG Tab PO SCH ×3 (09:11→20:30)
[2018-05-01] MEDS: Cholecalciferol (Vitamin D3) 1,000 Unit Tab PO SCH (09:11)
[2018-05-01] MEDS ORDERED: Magnesium Sulfate/Water 4 GM in Premix Bag 1 BAG IV ONE (10:40)
[2018-05-01] MEDS ORDERED: Sodium Chloride 0.9% 500 ML IV ONE (12:45)
[2018-05-01] MEDS ORDERED: Iopamidol 755 Mg/ML 200 ML Bottle IV ONE (13:49)
[2018-05-01] MEDS ORDERED: Sodium Chloride 0.9% 10 ML Syringe FLUSH PRN (13:49)
[2018-05-01] MEDS ORDERED: Magnesium Oxide 400 MG Tab PO ONE (14:19)
--- NOTE | 2018-05-01 15:12 | CT ---
CT chest Technique: Multiple axial sections through the chest were obtained. Intravenous contrast was utilized. Comparison: Prior chest x-ray performed on 04/28/18, no previous chest CT. Findings: Mediastinum and hilar regions appear within normal limits. No pericardial thickening is seen. No axillary adenopathy is noted. Patchy increased areas of density noted within the left upper and left lower lung as well as minimal increased density within the right lung base. Findings could represent mild areas of pneumonia. Very minimal bilateral pleural effusions are seen. Bone window settings were reviewed which show scattered degenerative change within the spine. No acute osseous abnormality is seen. Impression: 1. Patchy areas of increased density as described above. Mild areas of pneumonia are possible. 2. Very minimal pleural effusions and other incidental findings. Diagnostic code #3 CT abdomen and pelvis Technique: Multiple axial sections were obtained from above the dome of the diaphragm inferiorly through the pubic symphysis. Intravenous contrast was utilized. No oral contrast was utilized. Comparison: Prior CT abdomen and pelvis exam of 09/12/17. Findings: Liver contains no focal abnormality. There is minimal fluid around the liver being seen. Spleen appears within normal limits. Several surgical clips are seen inferior to the spleen. Adrenal glands show no nodule. Gallbladder contains no calcified gallstones. Kidneys show symmetric contrast enhancement without hydronephrosis or mass. Pancreas appears within normal limits. Aorta shows no aneurysm. No retroperitoneal adenopathy is seen. Anterior abdominal wall hernia seen which contains a loop of nondilated transverse colon. Colostomy noted on the right side with peristomal hernia. Fair amount of fluid is seen within the rectum which has increased from prior CT exam. No pelvic mass or adenopathy is seen. No free fluid or inflammatory changes seen. Bone window settings were reviewed which show mild degenerative change scattered throughout the spine. Compression deformity noted of L5 appear as an interval change from previous CT exam. Impression: 1. Colostomy with peristomal hernia. This is similar to prior exam. Anterior abdominal wall hernia appearing to contain a loop of transverse colon which causes no obstruction. 3. Small amount of fluid is seen around the liver. 4. Increasing fluid within the rectum which has increased in amount from previous exam. 5. Compression deformity of L5 which is an interval change from prior exam. 6. Nothing acute is otherwise seen. No bowel dilatation is seen. Diagnostic code #3
--- NOTE | 2018-05-01 15:46 | PCM.PN ---
- General Info Date of Service: 05/01/18 Subjective Update: Patient's mother says he is not quite himself, will refuse meds and not participate in patient care needs. Functional Status: Reports: Urinating - Review of Systems General: Reports: Weakness HEENT: Reports: No Symptoms Pulmonary: Reports: No Symptoms Cardiovascular: Reports: No Symptoms Gastrointestinal: Reports: No Symptoms Genitourinary: Reports: No Symptoms Musculoskeletal: Reports: No Symptoms Skin: Reports: No Symptoms Neurological: Reports: Confusion Psychiatric: Reports: Confusion - Patient Data Vitals - Most Recent: Last Vital Signs Temp 37.1 C 05/01/18 07:18 Pulse 89 05/01/18 07:18 Resp 16 05/01/18 07:18 BP 118/60 05/01/18 07:18 Pulse Ox 100 05/01/18 07:18 Weight - Most Recent: 87.952 kg I&O - Last 24 Hours: Intake & Output 05/01/18 05/01/18 05/01/18 06:59 14:59 22:59 Intake Total 1350 0 Balance 1350 0 Lab Results Last 24 Hours: Laboratory Results - last 24 hr 05/01/18 05/01/18 Range/Units 05:59 05:59 WBC 3.29 L (4.23-9.07) K/mm3 RBC 4.44 L (4.63-6.08) M/mm3 Hgb 12.5 L (13.7-17.5) gm/L Hct 37.2 L (40.1-51.0) % MCV 83.8 (79.0-92.2) fl MCH 28.2 (25.7-32.2) pg MCHC 33.6 (32.2-35.5) g/dl RDW Std Deviation 42.0 (35.1-43.9) fL Plt Count 124 L (163-337) K/mm3 MPV 9.6 (9.4-12.3) fl Neut % (Auto) 47.7 (34.0-67.9) % Lymph % (Auto) 28.6 (21.8-53.1) % [place] % (Auto) 21.3 H (5.3-12.2) % Eos % (Auto) 2.1 (0.8-7.0) Baso % (Auto) 0.3 (0.1-1.2) % Neut # (Auto) 1.57 L (1.78-5.38) K/mm3 Lymph # (Auto) 0.94 L (1.32-3.57) K/mm3 [place] # (Auto) 0.70 (0.30-0.82) K/mm3 Eos # (Auto) 0.07 (0.04-0.54) K/mm3 Baso # (Auto) 0.01 (0.01-0.08) K/mm3 Manual Slide Review Normal smear Sodium 137 (136-145) mEq/L Potassium 4.0 (3.5-5.1) mEq/L Chloride 105 (98-107) mEq/L Carbon Dioxide 22 (21-32) mEq/L Anion Gap 14.0 (5-15) BUN 6 L (7-18) mg/dL Creatinine 0.9 (0.7-1.3) mg/dL Est Cr Clr Drug Dosing 134.37 mL/min Estimated GFR (MDRD) > 60 (>60) mL/min BUN/Creatinine Ratio 6.7 L (14-18) Glucose 78 (74-106) mg/dL Calcium 8.1 L (8.5-10.1) mg/dL Magnesium 1.4 L (1.8-2.4) mg/dl [place] Results Last 24 Hours: Microbiology 04/28/18 15:03 Aerobic Blood Culture - Preliminary Blood - Venous - Lab Draw NO GROWTH AFTER 3 DAYS Anaerobic Blood Culture - Final 04/28/18 14:50 Aerobic Blood Culture - Preliminary Blood - Venous NO GROWTH AFTER 3 DAYS Anaerobic Blood Culture - Preliminary NO GROWTH AFTER 3 DAYS 04/28/18 23:45 Stool Culture - Final Stool / Feces NORMAL ENTERIC JOVANA. NO SALMONELLA, SHIGELLA, CAMPYLOBACTER, E.COLI O157 OR YERSINIA ISOLATED. Shiga Toxin I - Final NEGATIVE FOR SHIGA TOXIN 1 Shiga Toxin II - Final NEGATIVE FOR SHIGA TOXIN 2 Med Orders - Current: Current Medications Acetaminophen (Tylenol) 650 mg PO Q4H PRN PRN Reason: Pain (Mild 1-3)/fever Acetaminophen (Tylenol) 650 mg RECTAL Q4H PRN PRN Reason: Pain (mild 1-3) Last Admin: 04/28/18 22:03 Dose: 650 mg Hydrocodone Bitart/Acetaminophen ([place] 325-5 Mg) 1 tab PO Q4H PRN PRN Reason: Pain (moderate 4-6) Albuterol/Ipratropium (Duoneb 3.0-0.5 Mg/3 Ml) 3 ml NEB Q4H PRN PRN Reason: Shortness Of Breath/wheezing Bisacodyl (Dulcolax) 5 mg PO DAILY PRN PRN Reason: Constipation Cholecalciferol (Vitamin D3) 1,000 units PO DAILY [facility] Last Admin: 05/01/18 09:11 Dose: 1,000 units Docusate Sodium (Colace) 100 mg PO BID PRN PRN Reason: Constipation Famotidine (Pepcid) 20 mg PO BID [facility] Last Admin: 05/01/18 09:11 Dose: 20 mg Ferrous Sulfate (Ferrous Sulfate) 325 mg PO ACBREAKFAST [facility] Last Admin: 05/01/18 06:13 Dose: 325 mg Hydralazine HCl (Apresoline) 20 mg IVPUSH Q4H PRN PRN Reason: Hypertension Hydromorphone HCl (Dilaudid) 0.25 mg IVPUSH Q2H PRN PRN Reason: Pain (severe 7-10) Levofloxacin/Dextrose 750 mg/ (Premix) 150 mls @ 100 mls/hr IV Q24H JOSE Piperacillin Sod/Tazobactam (Sod 4.5 gm/ Sodium Chloride) 100 mls @ 200 mls/hr IV Q8H JOSE Piperacillin Sod/Tazobactam (Sod 4.5 gm/ Sodium Chloride) 100 mls @ 25 mls/hr IV Q8H JOSE Lorazepam (Ativan) 2 mg IVPUSH Q4H PRN PRN Reason: Seizures Lorazepam (Ativan) 0.5 mg IV Q6H PRN PRN Reason: Anxiety Magnesium Oxide (Magnesium Oxide) 400 mg PO BID [facility] Metoprolol Tartrate (Lopressor) 5 mg IVPUSH Q4H PRN PRN Reason: Tachycardia Miscellaneous Information (Remove Patch) 1 ea TRDERM ONETIME ONE Stop: 05/01/18 21:01 Saccharomyces Boulardii (Florastor) 250 mg PO DAILY [facility] Last Admin: 05/01/18 09:11 Dose: 250 mg Senna/Docusate Sodium (Senna Plus) 1 tab PO BID PRN PRN Reason: Constipation Sodium Chloride (Saline Flush) 10 ml FLUSH ONETIME PRN PRN Reason: IV FLUSH Last Admin: 05/01/18 14:28 Dose: 10 ml Discontinued Medications Famotidine (Pepcid) 20 mg IVPUSH BID [facility] Stop: 05/01/18 21:01 Last Admin: 04/30/18 08:41 Dose: 20 mg Sodium Chloride (Normal Saline) 1,000 mls @ 999 mls/hr IV ONETIME ONE Stop: 04/28/18 07:45 Last Admin: 04/28/18 06:45 Dose: 999 mls/hr Sodium Chloride (Normal Saline) 1,000 mls @ 150 mls/hr IV ASDIRECTED [facility] Last Admin: 04/28/18 09:38 Dose: 150 mls/hr Sodium Chloride (Sodium Chloride 3%) 250 mls @ 7.5 mls/hr IV ONETIME ONE Stop: 04/29/18 23:04 Last Admin: 04/28/18 14:46 Dose: 7.5 mls/hr Piperacillin Sod/Tazobactam (Sod 4.5 gm/ Sodium Chloride) 100 mls @ 200 mls/hr IV ONETIME ONE Stop: 04/28/18 23:14 Last Admin: 04/28/18 23:51 Dose: 200 mls/hr Vancomycin HCl 1 gm/Vancomycin HCl 250 mg/ Sodium Chloride 500 mls @ 333.025 mls/hr IV Q8H [facility] Stop: 04/29/18 21:00 Last Admin: 04/29/18 18:08 Dose: 333.025 mls/hr Levofloxacin/Dextrose 500 mg/ (Premix) 100 mls @ 100 mls/hr IV DAILY@1999 [facility] Last Admin: 04/30/18 20:10 Dose: 100 mls/hr Piperacillin Sod/Tazobactam (Sod 4.5 gm/ Sodium Chloride) 100 mls @ 25 mls/hr IV Q8H [facility] Last Admin: 04/30/18 04:09 Dose: 25 mls/hr Potassium Chloride/Sodium Chloride (Normal Saline With 20 Meq Kcl) 1,000 mls @ 75 mls/hr IV ASDIRECTED [facility] Last Admin: 05/01/18 03:28 Dose: 75 mls/hr Vancomycin HCl 1 gm/Vancomycin HCl 250 mg/ Sodium Chloride 250 mls @ 166.667 mls/hr IV Q8H [facility] Last Admin: 04/30/18 11:26 Dose: Not Given Magnesium Sulfate 2 gm/ Premix 50 mls @ 25 mls/hr IV ONETIME ONE Stop: 04/30/18 13:02 Last Admin: 04/30/18 11:35 Dose: 25 mls/hr Magnesium Sulfate 4 gm/ Premix 50 mls @ 12.5 mls/hr IV ONETIME ONE Stop: 05/01/18 14:39 Last Admin: 05/01/18 11:52 Dose: 12.5 mls/hr Sodium Chloride (Normal Saline) 500 mls @ 100 mls/hr IV ONETIME ONE Stop: 05/01/18 17:44 Last Admin: 05/01/18 14:23 Dose: Not Given Iopamidol (Isovue-370 (76%)) 100 ml IV ONETIME ONE Stop: 05/01/18 13:50 Last Admin: 05/01/18 14:27 Dose: 100 ml Magnesium Oxide (Magnesium Oxide) 800 mg PO ONETIME ONE Stop: 04/29/18 14:01 Last Admin: 04/29/18 16:29 Dose: 800 mg Magnesium Oxide (Magnesium Oxide) 800 mg PO ONETIME ONE Stop: 04/29/18 16:31 Last Admin: 04/29/18 16:30 Dose: Not Given Magnesium Oxide (Magnesium Oxide) 800 mg PO ONETIME ONE Stop: 05/01/18 14:20 Last Admin: 05/01/18 14:56 Dose: 800 mg Magnesium Sulfate (Pharmacy To Dose - Magnesium Replacement) 0 dose .XX ASDIRECTED PRN PRN Reason: RX TO WATCH MAG Metoclopramide HCl (Reglan) 5 mg IVPUSH Q6H JOSE Stop: 04/29/18 18:16 Last Admin: 04/29/18 05:46 Dose: 5 mg Modafinil (Provigil) 100 mg PO DAILY ONE Stop: 04/29/18 12:32 Non-Formulary Medication (Sodium Chloride/Kcl [Thermotabs]) 1 each PO TID [facility] Ondansetron HCl (Zofran) 4 mg IV Q6H PRN PRN Reason: Nausea/Vomiting Oral Electrolytes (Thermotabs) 1 each PO TID [facility] Pharmacy Consult (Consult To Pharmacy) 1 each .XX ASDIRECTED [facility] Potassium Chloride (Pharmacy To Dose - Potassium Replacement) 0 dose .XX ASDIRECTED PRN PRN Reason: RX TO WATCH K Potassium Chloride (Klor-Con M20) 40 meq PO Q4H JOSE Stop: 04/28/18 17:01 Last Admin: 04/28/18 16:26 Dose: Not Given Scopolamine (Transderm-Scop) 1.5 mg TRDERM ONETIME ONE Stop: 04/28/18 23:09 Last Admin: 04/28/18 23:52 Dose: 1.5 mg Vancomycin HCl (Pharmacy To Dose - Vancomycin) 0 dose .XX ASDIRECTED PRN PRN Reason: RX TO DOSE VANCO - Exam Quality Assessment: DVT Prophylaxis General: Alert, Oriented, No Acute Distress HEENT: Pupils Equal, Pupils Reactive, EOMI Neck: Trachea Midline, No JVD Lungs: Normal Respiratory Effort Cardiovascular: Regular Rate GI/Abdominal Exam: Normal Bowel Sounds, Soft, Non-Tender, No Organomegaly, No Distention (Male) Exam: Deferred Back Exam: Normal Inspection Extremities: Normal Inspection, Non-Tender, Normal Capillary Refill Skin: Warm Neurological: No New Focal Deficit Psy/Mental Status: Alert, Normal Affect, Normal Mood - Problem List Review Problem List Initiated/Reviewed/Updated: Yes - My Orders Last 24 Hours: My Active Orders 04/30/18 16:30 Saccharomyces Boulardii [Florastor] 250 mg PO DAILY 04/30/18 21:00 Famotidine [Pepcid] 20 mg PO BID 05/01/18 00:00 Piperacillin/Tazobactam [Piperacil-Tazobact] 4.5 gm Sodium Chloride 0.9% [ Normal Saline] 100 ml IV Q8H 05/01/18 16:00 Piperacillin/Tazobactam [Piperacil-Tazobact] 4.5 gm Sodium Chloride 0.9% [ Normal Saline] 100 ml IV Q8H 05/01/18 20:00 Levofloxacin/Dextrose 5%-Water [Levaquin in D5W 750 MG/150 ML] 750 mg Premix Bag 1 bag IV Q24H 05/01/18 Lunch Regular Diet [DIET] 05/02/18 09:00 Magnesium Oxide 400 mg PO BID - Plan Plan:: Assessment/Plan: Acute: Encephalopathy - Suspect 2/2 Toxic/Metabolic +/- post ictal state - Heat CT scan shows no acute intra-cranial abnormality but not posterior scalp hematoma - He is easily arousable and open his eyes; unlikely encephalitis or meningitis at this point - Aspiration Precaution Sepsis from Gastroenteritis w/ Possible Ileus; improved, will start clear liquids - WBC 3.47 yesterday; now 5.05 - Fever with 38.3C - Hypotensive with documented BPs of 90/29 mmHg and 104/57 mmHg - Influenza screening negative - LA is 1.1 - CXR shows bibasilar atelectasis - UA unable to obtain; not cooperative - Blood culture and RVP - Repeat CBC and ordered Procalcitonin, ESR and CRP - IV Zosyn/Vancomycin and Levaquin for pharmacy to dose (has a hx/o Lycopenia which put him at increased risk for infection) Gastroenteritis - He has been vomiting numerous times - Ileostomy shows liquid stools - Fecal Cx/Sx plus C. Diff test - IV hydration and PRN anti-emesis Ileus S/p Hx/o SBO with Ileostomy - He has not had much gas in his ileostomy bag (flat) - Greenish colored liquid fecal matter - Ambulate and prokinetic agent Probable Seizure-->EEG today - Evidenced by posterior scalp hematoma on head CT scan - CK is 813 - He carries a hx/o Seizure Disorder and Hydrocephalus Congenital - Risk factor: Hyponatremia w/ a sodium level of 118-121 - Low sodium level known to cause seizure and in the setting of infection the threshold is lower - Unable to take oral salt tablets so we switched to 3% Hypertonic Solution with slow infusion (pharmacy to dose) - PRN Ativan for abortive seizure - Seizure Precautions - Offered EEG but unlikely he will cooperate with the procedure Hyponatremia - Na 118--> 121-->139 - He is on SSRI a known drug that could cause hyponatremia; will hold it for now - Likely 2/2 GI loss and SSRI - IVF fluids and 3% Hypertonic Saline slow infusion - Daily labs PNA -Resume Zosyn/Levoquin, bilateral PNA. Chronic: PVD Constipation Scoliosis Seizure Disorder Hx/o Congenital Hydrocephalus Intellectual Disability Anxiety Depression Pseudolymphoma Hx/o Lycopenia Plan: Admit to [facility] w/ Tele Routine AM Labs Resume Home Meds Aspiration/Seizure Precaution IS as directed IV ATBs re: PNA IV fluids for hydration PT/OT when appropriate SW/CM for d/c planning Code status: DNR/DNI
[2018-05-01] MEDS ORDERED: Piperacillin/Tazobactam 4.5 GM in Sodium Chloride 0.9% 100 ML IV ONE (16:00)
[2018-05-01] MEDS ORDERED: Piperacillin/Tazobactam 4.5 GM in Sodium Chloride 0.9% 100 ML IV SCH (16:00)
[2018-05-01] MEDS: Piperacillin/Tazobactam 4.5 GM in Sodium Chloride 0.9% 100 ML IV SCH (16:33)
[2018-05-01] MEDS: Levofloxacin/Dextrose 5%-Water 750 MG in Premix Bag 1 BAG IV SCH (20:08)
[2018-05-02] MEDS: Piperacillin/Tazobactam 4.5 GM in Sodium Chloride 0.9% 100 ML IV SCH ×4 (00:36→23:19)
[2018-05-02] MEDS ORDERED: Sodium Chloride 0.9% 1,000 ML IV SCH (05:00)
[2018-05-02] MEDS: Ferrous Sulfate 325 MG Tab PO SCH (05:56)
[2018-05-02] MEDS: Sodium Chloride 0.9% 1,000 ML IV SCH ×2 (07:38→18:35)
[2018-05-02] MEDS: Saccharomyces Boulardii (Probiotic) 250 MG Cap PO SCH (08:56)
[2018-05-02] MEDS: Famotidine 20 MG Tab PO SCH ×2 (08:56→20:29)
[2018-05-02] MEDS: Cholecalciferol (Vitamin D3) 1,000 Unit Tab PO SCH (08:56)
[2018-05-02] MEDS ORDERED: Magnesium Oxide 400 MG Tab PO SCH (09:00)
[2018-05-02] MEDS: Acetaminophen 325 MG Tab PO PRN ×2 (13:51→20:29)
--- NOTE | 2018-05-02 16:48 | PCM.PN ---
- General Info Date of Service: 05/02/18 Functional Status: Reports: Tolerating Diet, Ambulating (reluctant), Urinating ( hold excessive amountn of urine ) - Review of Systems General: Reports: Weakness HEENT: Reports: No Symptoms Pulmonary: Reports: No Symptoms Cardiovascular: Reports: No Symptoms Gastrointestinal: Reports: No Symptoms Genitourinary: Reports: No Symptoms Musculoskeletal: Reports: No Symptoms Skin: Reports: No Symptoms Neurological: Reports: Confusion (more confused today) Psychiatric: Reports: No Symptoms - Patient Data Vitals - Most Recent: Last Vital Signs Temp 38.4 C H 05/02/18 16:13 Pulse 55 L 05/02/18 16:13 Resp 18 05/02/18 16:13 BP 126/79 05/02/18 16:13 Pulse Ox 100 05/02/18 16:13 Weight - Most Recent: 87.203 kg I&O - Last 24 Hours: Intake & Output 05/02/18 05/02/18 05/02/18 06:59 14:59 22:59 Intake Total 350 100 Output Total 450 Balance -100 100 Lab Results Last 24 Hours: Laboratory Results - last 24 hr 05/02/18 05/02/18 05/02/18 Range/Units 05:45 05:45 05:45 WBC (4.23-9.07) K/mm3 RBC (4.63-6.08) M/mm3 Hgb (13.7-17.5) gm/L Hct (40.1-51.0) % MCV (79.0-92.2) fl MCH (25.7-32.2) pg MCHC (32.2-35.5) g/dl RDW Std Deviation (35.1-43.9) fL Plt Count (163-337) K/mm3 MPV (9.4-12.3) fl Neut % (Auto) (34.0-67.9) % Lymph % (Auto) (21.8-53.1) % Morgan % (Auto) (5.3-12.2) % Eos % (Auto) (0.8-7.0) Baso % (Auto) (0.1-1.2) % Neut # (Auto) (1.78-5.38) K/mm3 Lymph # (Auto) (1.32-3.57) K/mm3 Morgan # (Auto) (0.30-0.82) K/mm3 Eos # (Auto) (0.04-0.54) K/mm3 Baso # (Auto) (0.01-0.08) K/mm3 Manual Slide Review Sodium 138 (136-145) mEq/L Potassium 3.9 (3.5-5.1) mEq/L Chloride 101 (98-107) mEq/L Carbon Dioxide 25 (21-32) mEq/L Anion Gap 15.9 H (5-15) BUN 10 (7-18) mg/dL Creatinine 1.0 (0.7-1.3) mg/dL Est Cr Clr Drug Dosing 119.90 mL/min Estimated GFR (MDRD) > 60 (>60) mL/min BUN/Creatinine Ratio 10.0 L (14-18) Glucose 90 (74-106) mg/dL Lactic Acid 0.9 (0.4-2.0) mmol/L Calcium 9.3 (8.5-10.1) mg/dL Magnesium 1.4 L (1.8-2.4) mg/dl C-Reactive Protein 2.3 H* (<1.0) mg/dL 05/02/18 Range/Units 05:50 WBC 2.30 L* (4.23-9.07) K/mm3 RBC 4.81 (4.63-6.08) M/mm3 Hgb 13.4 L (13.7-17.5) gm/L Hct 40.7 (40.1-51.0) % MCV 84.6 (79.0-92.2) fl MCH 27.9 (25.7-32.2) pg MCHC 32.9 (32.2-35.5) g/dl RDW Std Deviation 42.7 (35.1-43.9) fL Plt Count 143 L (163-337) K/mm3 MPV 9.8 (9.4-12.3) fl Neut % (Auto) 51.8 (34.0-67.9) % Lymph % (Auto) 28.7 (21.8-53.1) % Morgan % (Auto) 16.1 H (5.3-12.2) % Eos % (Auto) 2.6 (0.8-7.0) Baso % (Auto) 0.4 (0.1-1.2) % Neut # (Auto) 1.19 L (1.78-5.38) K/mm3 Lymph # (Auto) 0.66 L (1.32-3.57) K/mm3 Morgan # (Auto) 0.37 (0.30-0.82) K/mm3 Eos # (Auto) 0.06 (0.04-0.54) K/mm3 Baso # (Auto) 0.01 (0.01-0.08) K/mm3 Manual Slide Review Abnormal smear Sodium (136-145) mEq/L Potassium (3.5-5.1) mEq/L Chloride (98-107) mEq/L Carbon Dioxide (21-32) mEq/L Anion Gap (5-15) BUN (7-18) mg/dL Creatinine (0.7-1.3) mg/dL Est Cr Clr Drug Dosing mL/min Estimated GFR (MDRD) (>60) mL/min BUN/Creatinine Ratio (14-18) Glucose (74-106) mg/dL Lactic Acid (0.4-2.0) mmol/L Calcium (8.5-10.1) mg/dL Magnesium (1.8-2.4) mg/dl C-Reactive Protein (<1.0) mg/dL [place] Results Last 24 Hours: Microbiology 04/28/18 15:03 Aerobic Blood Culture - Preliminary Blood - Venous - Lab Draw NO GROWTH AFTER 4 DAYS Anaerobic Blood Culture - Final 04/28/18 14:50 Aerobic Blood Culture - Preliminary Blood - Venous NO GROWTH AFTER 4 DAYS Anaerobic Blood Culture - Preliminary NO GROWTH AFTER 4 DAYS Med Orders - Current: Current Medications Acetaminophen (Tylenol) 650 mg PO Q4H PRN PRN Reason: Pain (Mild 1-3)/fever Last Admin: 05/02/18 13:51 Dose: 650 mg Acetaminophen (Tylenol) 650 mg RECTAL Q4H PRN PRN Reason: Pain (mild 1-3) Last Admin: 04/28/18 22:03 Dose: 650 mg Hydrocodone Bitart/Acetaminophen ([place] 325-5 Mg) 1 tab PO Q4H PRN PRN Reason: Pain (moderate 4-6) Albuterol/Ipratropium (Duoneb 3.0-0.5 Mg/3 Ml) 3 ml NEB Q4H PRN PRN Reason: Shortness Of Breath/wheezing Bisacodyl (Dulcolax) 5 mg PO DAILY PRN PRN Reason: Constipation Cholecalciferol (Vitamin D3) 1,000 units PO DAILY [facility] Last Admin: 05/02/18 08:56 Dose: 1,000 units Docusate Sodium (Colace) 100 mg PO BID PRN PRN Reason: Constipation Famotidine (Pepcid) 20 mg PO BID [facility] Last Admin: 05/02/18 08:56 Dose: 20 mg Ferrous Sulfate (Ferrous Sulfate) 325 mg PO ACBREAKFAST [facility] Last Admin: 05/02/18 05:56 Dose: 325 mg Hydralazine HCl (Apresoline) 20 mg IVPUSH Q4H PRN PRN Reason: Hypertension Hydromorphone HCl (Dilaudid) 0.25 mg IVPUSH Q2H PRN PRN Reason: Pain (severe 7-10) Levofloxacin/Dextrose 750 mg/ (Premix) 150 mls @ 100 mls/hr IV Q24H [facility] Last Admin: 05/01/18 20:08 Dose: 100 mls/hr Piperacillin Sod/Tazobactam (Sod 4.5 gm/ Sodium Chloride) 100 mls @ 25 mls/hr IV Q8H [facility] Last Admin: 05/02/18 16:12 Dose: 25 mls/hr Sodium Chloride (Normal Saline) 1,000 mls @ 100 mls/hr IV ASDIRECTED [facility] Last Admin: 05/02/18 07:38 Dose: 100 mls/hr Lorazepam (Ativan) 2 mg IVPUSH Q4H PRN PRN Reason: Seizures Lorazepam (Ativan) 0.5 mg IV Q6H PRN PRN Reason: Anxiety Magnesium Oxide (Magnesium Oxide) 800 mg PO DAILY [facility] Metoprolol Tartrate (Lopressor) 5 mg IVPUSH Q4H PRN PRN Reason: Tachycardia Saccharomyces Boulardii (Florastor) 250 mg PO DAILY [facility] Last Admin: 05/02/18 08:56 Dose: 250 mg Senna/Docusate Sodium (Senna Plus) 1 tab PO BID PRN PRN Reason: Constipation Sodium Chloride (Saline Flush) 10 ml FLUSH ONETIME PRN PRN Reason: IV FLUSH Last Admin: 05/01/18 14:28 Dose: 10 ml Discontinued Medications Famotidine (Pepcid) 20 mg IVPUSH BID [facility] Stop: 05/01/18 21:01 Last Admin: 04/30/18 08:41 Dose: 20 mg Sodium Chloride (Normal Saline) 1,000 mls @ 999 mls/hr IV ONETIME ONE Stop: 04/28/18 07:45 Last Admin: 04/28/18 06:45 Dose: 999 mls/hr Sodium Chloride (Normal Saline) 1,000 mls @ 150 [facility] Last Admin: 04/28/18 09:38 Dose: 150 mls/hr Sodium Chloride (Sodium Chloride 3%) 250 mls @ 7.5 mls/hr IV ONETIME ONE Stop: 04/29/18 23:04 Last Admin: 04/28/18 14:46 Dose: 7.5 mls/hr Piperacillin Sod/Tazobactam (Sod 4.5 gm/ Sodium Chloride) 100 mls @ 200 mls/hr IV ONETIME ONE Stop: 04/28/18 23:14 Last Admin: 04/28/18 23:51 Dose: 200 mls/hr Vancomycin HCl 1 gm/Vancomycin HCl 250 mg/ Sodium Chloride 500 mls @ 333.025 mls/hr IV Q8H [facility] Stop: 04/29/18 21:00 Last Admin: 04/29/18 18:08 Dose: 333.025 mls/hr Levofloxacin/Dextrose 500 mg/ (Premix) 100 mls @ 100 mls/hr IV DAILY@2000 [facility] Last Admin: 04/30/18 20:10 Dose: 100 mls/hr Piperacillin Sod/Tazobactam (Sod 4.5 gm/ Sodium Chloride) 100 mls @ 25 mls/hr IV Q8H [facility] Last Admin: 04/30/18 04:09 Dose: 25 mls/hr Potassium Chloride/Sodium Chloride (Normal Saline With 20 Meq Kcl) 1,000 mls @ 75 mls/hr IV ASDIRECTED [facility] Last Admin: 05/01/18 03:28 Dose: 75 mls/hr Vancomycin HCl 1 gm/Vancomycin HCl 250 mg/ Sodium Chloride 250 mls @ 166.667 mls/hr IV Q8H [facility] Last Admin: 04/30/18 11:26 Dose: Not Given Magnesium Sulfate 2 gm/ Premix 50 mls @ 25 mls/hr IV ONETIME ONE Stop: 04/30/18 13:02 Last Admin: 04/30/18 11:35 Dose: 25 mls/hr Magnesium Sulfate 4 gm/ Premix 50 mls @ 12.5 mls/hr IV ONETIME ONE Stop: 05/01/18 14:39 Last Admin: 05/01/18 11:52 Dose: 12.5 mls/hr Sodium Chloride (Normal Saline) 500 mls @ 100 mls/hr IV ONETIME ONE Stop: 05/01/18 17:44 Last Admin: 05/01/18 14:23 Dose: Not Given Piperacillin Sod/Tazobactam (Sod 4.5 gm/ Sodium Chloride) 100 mls @ 200 mls/hr IV Q8H [facility] Piperacillin Sod/Tazobactam (Sod 4.5 gm/ Sodium Chloride) 100 mls @ 25 mls/hr IV Q8H [facility] Last Admin: 05/01/18 16:33 Dose: Not Given Piperacillin Sod/Tazobactam (Sod 4.5 gm/ Sodium Chloride) 100 mls @ 200 mls/hr IV ONETIME ONE Stop: 05/01/18 16:29 Last Admin: 05/01/18 16:13 Dose: 200 mls/hr Sodium Chloride (Normal Saline) 1,000 mls @ 150 mls/hr IV ASDIRECTED [facility] Stop: 05/02/18 13:00 Iopamidol (Isovue-370 (76%)) 100 ml IV ONETIME ONE Stop: 05/01/18 13:50 Last Admin: 05/01/18 14:27 Dose: 100 ml Magnesium Oxide (Magnesium Oxide) 800 mg PO ONETIME ONE Stop: 04/29/18 14:01 Last Admin: 04/29/18 16:29 Dose: 800 mg Magnesium Oxide (Magnesium Oxide) 800 mg PO ONETIME ONE Stop: 04/29/18 16:31 Last Admin: 04/29/18 16:30 Dose: Not Given Magnesium Oxide (Magnesium Oxide) 800 mg PO ONETIME ONE Stop: 05/01/18 14:20 Last Admin: 05/01/18 14:56 Dose: 800 mg Magnesium Oxide (Magnesium Oxide) 400 mg PO BID [facility] Last Admin: 05/02/18 08:56 Dose: 400 mg Magnesium Sulfate (Pharmacy To Dose - Magnesium Replacement) 0 dose .XX ASDIRECTED PRN PRN Reason: RX TO WATCH MAG Metoclopramide HCl (Reglan) 5 mg IVPUSH Q6H [facility] Stop: 04/29/18 18:16 Last Admin: 04/29/18 05:46 Dose: 5 mg Miscellaneous Information (Remove Patch) 1 ea TRDERM ONETIME ONE Stop: 05/01/18 21:01 Last Admin: 05/01/18 20:10 Dose: 1 ea Modafinil (Provigil) 100 mg PO DAILY ONE Stop: 04/29/18 12:32 Non-Formulary Medication (Sodium Chloride/Kcl [Thermotabs]) 1 each PO TID [facility] Ondansetron HCl (Zofran) 4 mg IV Q6H PRN PRN Reason: Nausea/Vomiting Oral Electrolytes (Thermotabs) 1 each PO TID [facility] Pharmacy Consult (Consult To Pharmacy) 1 each .XX ASDIRECTED [facility] Potassium Chloride (Pharmacy To Dose - Potassium Replacement) 0 dose .XX ASDIRECTED PRN PRN Reason: RX TO WATCH K Potassium Chloride (Klor-Con M20) 40 meq PO Q4H [facility] Stop: 04/28/18 17:01 Last Admin: 04/28/18 16:26 Dose: Not Given Scopolamine (Transderm-Scop) 1.5 mg TRDERM ONETIME ONE Stop: 04/28/18 23:09 Last Admin: 04/28/18 23:52 Dose: 1.5 mg Vancomycin HCl (Pharmacy To Dose - Vancomycin) 0 dose .XX ASDIRECTED PRN PRN Reason: RX TO DOSE VANCO - Exam Quality Assessment: DVT Prophylaxis General: Alert, Oriented, No Acute Distress HEENT: Pupils Equal, Pupils Reactive, EOMI Neck: Trachea Midline, No JVD Lungs: Normal Respiratory Effort Cardiovascular: Regular Rate, Regular Rhythm GI/Abdominal Exam: Normal Bowel Sounds, Soft, Non-Tender, No Organomegaly, No Distention (Male) Exam: Deferred Back Exam: Normal Inspection Extremities: Normal Inspection, Non-Tender, Normal Capillary Refill Skin: Warm Neurological: No New Focal Deficit Psy/Mental Status: Alert, Normal Affect, Normal Mood - Problem List Review Problem List Initiated/Reviewed/Updated: Yes - My Orders Last 24 Hours: My Active Orders 05/01/18 20:00 Levofloxacin/Dextrose 5%-Water [Levaquin in D5W 750 MG/150 ML] 750 mg Premix Bag 1 bag IV Q24H 05/01/18 23:57 Up With Assistance [RC] ASDIRECTED 05/01/18 Dinner Soft Diet [DIET] 05/02/18 00:00 Piperacillin/Tazobactam [Piperacil-Tazobact] 4.5 gm Sodium Chloride 0.9% [ Normal Saline] 100 ml IV Q8H 05/02/18 13:47 Blood Culture x2 Reflex Set [OM.PC] Stat 05/02/18 14:10 CULTURE BLOOD [BC] Stat 05/02/18 14:20 CULTURE BLOOD [BC] Stat 05/02/18 16:04 Communication Order [RC] DAILY 05/03/18 05:00 CBC WITH AUTO DIFF [HEME] DAILY CRP [C-REACTIVE PROTEIN] [CHEM] DAILY LACTIC ACID [CHEM] DAILY 05/03/18 09:00 CXR [Chest 2V] [CR] Routine Magnesium Oxide 800 mg PO DAILY 05/04/18 05:00 CBC WITH AUTO DIFF [HEME] DAILY CRP [C-REACTIVE PROTEIN] [CHEM] DAILY LACTIC ACID [CHEM] DAILY 05/05/18 05:00 CBC WITH AUTO DIFF [HEME] DAILY CRP [C-REACTIVE PROTEIN] [CHEM] DAILY LACTIC ACID [CHEM] DAILY - Plan Plan:: Assessment/Plan: Acute: Encephalopathy - Suspect 2/2 Toxic/Metabolic +/- post ictal state - Heat CT scan shows no acute intra-cranial abnormality but not posterior scalp hematoma - He is easily arousable and open his eyes; unlikely encephalitis or meningitis at this point - Aspiration Precaution Sepsis from Gastroenteritis w/ Possible Ileus; improved, will start clear liquids - WBC 3.47 yesterday; now 5.05 - Fever with 38.3C - Hypotensive with documented BPs of 90/29 mmHg and 104/57 mmHg - Influenza screening negative - LA is 1.1 - CXR shows bibasilar atelectasis - UA unable to obtain; not cooperative - Blood culture and RVP - Repeat CBC and ordered Procalcitonin, ESR and CRP - IV Zosyn/Vancomycin and Levaquin for pharmacy to dose (has a hx/o Lycopenia which put him at increased risk for infection) Gastroenteritis - He has been vomiting numerous times - Ileostomy shows liquid stools - Fecal Cx/Sx plus C. Diff test - IV hydration and PRN anti-emesis Ileus S/p Hx/o SBO with Ileostomy - He has not had much gas in his ileostomy bag (flat) - Greenish colored liquid fecal matter - Ambulate and prokinetic agent Probable Seizure-->EEG today - Evidenced by posterior scalp hematoma on head CT scan - CK is 813 - He carries a hx/o Seizure Disorder and Hydrocephalus Congenital - Risk factor: Hyponatremia w/ a sodium level of 118-121 - Low sodium level known to cause seizure and in the setting of infection the threshold is lower - Unable to take oral salt tablets so we switched to 3% Hypertonic Solution with slow infusion (pharmacy to dose) - PRN Ativan for abortive seizure - Seizure Precautions - Offered EEG but unlikely he will cooperate with the procedure Hyponatremia - Na 118--> 121-->139 - He is on SSRI a known drug that could cause hyponatremia; will hold it for now - Likely 2/2 GI loss and SSRI - IVF fluids and 3% Hypertonic Saline slow infusion - Daily labs PNA -Resume Zosyn/Levoquin, bilateral PNA. Chronic: PVD Constipation Scoliosis Seizure Disorder Hx/o Congenital Hydrocephalus Intellectual Disability Anxiety Depression Pseudolymphoma Hx/o Lycopenia Plan: MSP w/ Tele Routine AM Labs Resume Home Meds Aspiration/Seizure Precaution IS as directed IV ATBs re: PNA IV fluids for hydration PT/OT when appropriate SW/CM for d/c planning Code status: DNR/DNI
[2018-05-02] MEDS: Levofloxacin/Dextrose 5%-Water 750 MG in Premix Bag 1 BAG IV SCH (20:29)
[2018-05-03] MEDS: Acetaminophen 325 MG Tab PO PRN ×3 (02:10→13:27)
[2018-05-03] MEDS: Ferrous Sulfate 325 MG Tab PO SCH (07:31)
[2018-05-03] MEDS: Saccharomyces Boulardii (Probiotic) 250 MG Cap PO SCH (09:01)
[2018-05-03] MEDS: Magnesium Oxide 400 MG Tab PO SCH (09:03)
[2018-05-03] MEDS: Cholecalciferol (Vitamin D3) 1,000 Unit Tab PO SCH (09:03)
[2018-05-03] MEDS: Famotidine 20 MG Tab PO SCH ×2 (09:04→21:21)
[2018-05-03] MEDS: Piperacillin/Tazobactam 4.5 GM in Sodium Chloride 0.9% 100 ML IV SCH ×2 (09:07→16:19)
--- NOTE | 2018-05-03 11:48 | CR ---
Chest: Two views of the chest are obtained. Comparison: Prior chest x-ray of 04/28/18. Chest CT of 05/01/18. Heart size and mediastinum are normal. Slight scarring is noted within the left lung base. Lungs otherwise are clear with no acute parenchymal change. Patchy areas of increased density seen on prior chest CT are felt to be too small to identify by chest x-ray. Degenerative change is scattered throughout the spine. Impression: 1. Incidental findings. Nothing acute is seen. Please see above for further discussion. Diagnostic code #2
[2018-05-03] MEDS ORDERED: LORazepam 2 MG/ML SDV IVPUSH ONE (13:42)
[2018-05-03] MEDS ORDERED: metroNIDAZOLE/Normal Saline 500 MG in Premix Bag 1 BAG IV SCH (13:45)
[2018-05-03] MEDS ORDERED: LORazepam 2 MG/ML SDV ONE (13:46)
--- NOTE | 2018-05-03 14:58 | CT ---
Head CT Technique: Multiple axial sections through the brain were obtained. Comparison: Prior head CT study of 04/28/18. Findings: Ventricles along with basal cisterns and sulci over the convexities are within normal limits for the patient's age. No abnormal parenchymal densities are seen. No evidence of intracranial hemorrhage. No midline shift or mass effect is seen. Small calcifications are incidentally noted within the frontal and posterior parietal regions near the convexities. Bone window settings were reviewed which shows no acute calvarial abnormality. Visualized sinuses are clear. Impression: 1. Incidental findings as noted above. Nothing acute is seen on noncontrast head CT exam. Diagnostic code #2
--- NOTE | 2018-05-03 18:25 | PCM.PN ---
- General Info Date of Service: 05/03/18 Subjective Update: More interactive, but became restless. Has spiked temp on occasion, will review antibiotics. Family meeting with provider was 50 minutes, all questions were answered. Functional Status: Reports: Tolerating Diet, Ambulating, Urinating - Review of Systems General: Reports: No Symptoms HEENT: Reports: No Symptoms Pulmonary: Reports: No Symptoms Cardiovascular: Reports: No Symptoms Gastrointestinal: Reports: No Symptoms Genitourinary: Reports: No Symptoms Musculoskeletal: Reports: No Symptoms Skin: Reports: No Symptoms Neurological: Reports: No Symptoms Psychiatric: Reports: No Symptoms - Patient Data Vitals - Most Recent: Last Vital Signs Temp 37.3 C 05/03/18 16:22 Pulse 62 05/03/18 16:22 Resp 20 05/03/18 16:22 BP 139/68 05/03/18 16:22 Pulse Ox 97 05/03/18 16:22 Weight - Most Recent: 87.345 kg I&O - Last 24 Hours: Intake & Output 05/03/18 05/03/18 05/03/18 06:59 14:59 22:59 Intake Total 1210 0 500 Output Total 500 150 Balance 710 0 350 Lab Results Last 24 Hours: Laboratory Results - last 24 hr 05/03/18 05/03/18 05/03/18 Range/Units 06:00 06:00 06:00 WBC 2.56 L (4.23-9.07) K/mm3 RBC 4.75 (4.63-6.08) M/mm3 Hgb 13.2 L (13.7-17.5) gm/L Hct 40.2 (40.1-51.0) % MCV 84.6 (79.0-92.2) fl MCH 27.8 (25.7-32.2) pg MCHC 32.8 (32.2-35.5) g/dl RDW Std Deviation 42.7 (35.1-43.9) fL Plt Count 131 L (163-337) K/mm3 MPV 9.5 (9.4-12.3) fl Neut % (Auto) 50.3 (34.0-67.9) % Lymph % (Auto) 27.0 (21.8-53.1) % Wood % (Auto) 18.0 H (5.3-12.2) % Eos % (Auto) 3.9 (0.8-7.0) Baso % (Auto) 0.4 (0.1-1.2) % Neut # (Auto) 1.29 L (1.78-5.38) K/mm3 Lymph # (Auto) 0.69 L (1.32-3.57) K/mm3 Wood # (Auto) 0.46 (0.30-0.82) K/mm3 Eos # (Auto) 0.10 (0.04-0.54) K/mm3 Baso # (Auto) 0.01 (0.01-0.08) K/mm3 Manual Slide Review Abnormal smear Lactic Acid 0.6 (0.4-2.0) mmol/L C-Reactive Protein 1.6 H* (<1.0) mg/dL [facility] Results Last 24 Hours: Microbiology 04/28/18 15:03 Aerobic Blood Culture - Preliminary Blood - Venous - Lab Draw NO GROWTH AFTER 5 DAYS Anaerobic Blood Culture - Final 04/28/18 14:50 Aerobic Blood Culture - Preliminary Blood - Venous NO GROWTH AFTER 5 DAYS Anaerobic Blood Culture - Preliminary NO GROWTH AFTER 5 DAYS 05/02/18 14:10 Aerobic Blood Culture - Preliminary Blood - Venous - Lab Draw NO GROWTH AFTER 1 DAY Anaerobic Blood Culture - Preliminary NO GROWTH AFTER 1 DAY 05/02/18 14:20 Aerobic Blood Culture - Preliminary Blood - Venous NO GROWTH AFTER 1 DAY Anaerobic Blood Culture - Preliminary NO GROWTH AFTER 1 DAY Med Orders - Current: Current Medications Acetaminophen (Tylenol) 650 mg PO Q4H PRN PRN Reason: Pain (Mild 1-3)/fever Last Admin: 05/03/18 13:27 Dose: 650 mg Acetaminophen (Tylenol) 650 mg RECTAL Q4H PRN PRN Reason: Pain (mild 1-3) Last Admin: 04/28/18 22:03 Dose: 650 mg Hydrocodone Bitart/Acetaminophen ([place] 325-5 Mg) 1 tab PO Q4H PRN PRN Reason: Pain (moderate 4-6) Albuterol/Ipratropium (Duoneb 3.0-0.5 Mg/3 Ml) 3 ml NEB Q4H PRN PRN Reason: Shortness Of Breath/wheezing Bisacodyl (Dulcolax) 5 mg PO DAILY PRN PRN Reason: Constipation Cholecalciferol (Vitamin D3) 1,000 units PO DAILY [facility] Last Admin: 05/03/18 09:03 Dose: 1,000 units Docusate Sodium (Colace) 100 mg PO BID PRN PRN Reason: Constipation Famotidine (Pepcid) 20 mg PO BID [facility] Last Admin: 05/03/18 09:04 Dose: 20 mg Ferrous Sulfate (Ferrous Sulfate) 325 mg PO ACBREAKFAST [facility] Last Admin: 05/03/18 07:31 Dose: 325 mg Hydralazine HCl (Apresoline) 20 mg IVPUSH Q4H PRN PRN Reason: Hypertension Hydromorphone HCl (Dilaudid) 0.25 mg IVPUSH Q2H PRN PRN Reason: Pain (severe 7-10) Piperacillin Sod/Tazobactam (Sod 4.5 gm/ Sodium Chloride) 100 mls @ 25 mls/hr IV Q8H [facility] Last Admin: 05/03/18 16:19 Dose: 25 mls/hr Doxycycline Hyclate 100 mg/ (Sodium Chloride) 100 mls @ 100 mls/hr IV Q12HR [facility] Lorazepam (Ativan) 2 mg IVPUSH Q4H PRN PRN Reason: Seizures Lorazepam (Ativan) 0.5 mg IV Q6H PRN PRN Reason: Anxiety Magnesium Oxide (Magnesium Oxide) 800 mg PO DAILY [facility] Last Admin: 05/03/18 09:03 Dose: 800 mg Metoprolol Tartrate (Lopressor) 5 mg IVPUSH Q4H PRN PRN Reason: Tachycardia Saccharomyces Boulardii (Florastor) 500 mg PO DAILY [facility] Senna/Docusate Sodium (Senna Plus) 1 tab PO BID PRN PRN Reason: Constipation Sodium Chloride (Saline Flush) 10 ml FLUSH ONETIME PRN PRN Reason: IV FLUSH Last Admin: 05/01/18 14:28 Dose: 10 ml Discontinued Medications Famotidine (Pepcid) 20 mg IVPUSH BID [facility] Stop: 05/01/18 21:01 Last Admin: 04/30/18 08:41 Dose: 20 mg Sodium Chloride (Normal Saline) 1,000 mls @ 999 mls/hr IV ONETIME ONE Stop: 04/28/18 07:45 Last Admin: 04/28/18 06:45 Dose: 999 mls/hr Sodium Chloride (Normal Saline) 1,000 mls @ 150 mls/hr IV ASDIRECTED [facility] Last Admin: 04/28/18 09:38 Dose: 150 mls/hr Sodium Chloride (Sodium Chloride 3%) 250 mls @ 7.5 mls/hr IV ONETIME ONE Stop: 04/29/18 23:04 Last Admin: 04/28/18 14:46 Dose: 7.5 mls/hr Piperacillin Sod/Tazobactam (Sod 4.5 gm/ Sodium Chloride) 100 mls @ 200 mls/hr IV ONETIME ONE Stop: 04/28/18 23:14 Last Admin: 04/28/18 23:51 Dose: 200 mls/hr Vancomycin HCl 1 gm/Vancomycin HCl 250 mg/ Sodium Chloride 500 mls @ 333.025 mls/hr IV Q8H [facility] Stop: 04/29/18 21:00 Last Admin: 04/29/18 18:08 Dose: 333.025 mls/hr Levofloxacin/Dextrose 500 mg/ (Premix) 100 mls @ 100 mls/hr IV DAILY@1999 [facility] Last Admin: 04/30/18 20:10 Dose: 100 mls/hr Piperacillin Sod/Tazobactam (Sod 4.5 gm/ Sodium Chloride) 100 mls @ 25 mls/hr IV Q8H [facility] Last Admin: 04/30/18 04:09 Dose: 25 mls/hr Potassium Chloride/Sodium Chloride (Normal Saline With 20 Meq Kcl) 1,000 mls @ 75 mls/hr IV ASDIRECTED [facility] Last Admin: 05/01/18 03:28 Dose: 75 mls/hr Vancomycin HCl 1 gm/Vancomycin HCl 250 mg/ Sodium Chloride 250 mls @ 166.667 mls/hr IV Q8H [facility] Last Admin: 04/30/18 11:26 Dose: Not Given Magnesium Sulfate 2 gm/ Premix 50 mls @ 25 mls/hr IV ONETIME ONE Stop: 04/30/18 13:02 Last Admin: 04/30/18 11:35 Dose: 25 mls/hr Magnesium Sulfate 4 gm/ Premix 50 mls @ 12.5 mls/hr IV ONETIME ONE Stop: 05/01/18 14:39 Last Admin: 05/01/18 11:52 Dose: 12.5 mls/hr Sodium Chloride (Normal Saline) 500 mls @ 100 mls/hr IV ONETIME ONE Stop: 05/01/18 17:44 Last Admin: 05/01/18 14:23 Dose: Not Given Levofloxacin/Dextrose 750 mg/ (Premix) 150 mls @ 100 mls/hr IV Q24H [facility] Last Admin: 05/02/18 20:29 Dose: 100 mls/hr Piperacillin Sod/Tazobactam (Sod 4.5 gm/ Sodium Chloride) 100 mls @ 200 mls/hr IV Q8H [facility] Piperacillin Sod/Tazobactam (Sod 4.5 gm/ Sodium Chloride) 100 mls @ 25 mls/hr IV Q8H [facility] Last Admin: 05/01/18 16:33 Dose: Not Given Piperacillin Sod/Tazobactam (Sod 4.5 gm/ Sodium Chloride) 100 mls @ 200 mls/hr IV ONETIME ONE Stop: 05/01/18 16:29 Last Admin: 05/01/18 16:13 Dose: 200 mls/hr Sodium Chloride (Normal Saline) 1,000 mls @ 150 mls/hr IV ASDIRECTED [facility] Stop: 05/02/18 13:00 Sodium Chloride (Normal Saline) 1,000 mls @ 100 mls/hr IV ASDIRECTED [facility] Last Admin: 05/02/18 18:35 Dose: 100 mls/hr Metronidazole 500 mg/ Premix 100 mls @ 100 mls/hr IV Q8H [facility] Iopamidol (Isovue-370 (76%)) 100 ml IV ONETIME ONE Stop: 05/01/18 13:50 Last Admin: 05/01/18 14:27 Dose: 100 ml Lorazepam (Ativan) 1 mg IVPUSH ONETIME ONE Stop: 05/03/18 13:43 Last Admin: 05/03/18 16:18 Dose: Not Given Lorazepam (Ativan) Confirm Administered Dose 2 mg .ROUTE .STK-MED ONE Stop: 05/03/18 13:47 Last Admin: 05/03/18 16:17 Dose: 1 mg Magnesium Oxide (Magnesium Oxide) 800 mg PO ONETIME ONE Stop: 04/29/18 14:01 Last Admin: 04/29/18 16:29 Dose: 800 mg Magnesium Oxide (Magnesium Oxide) 800 mg PO ONETIME ONE Stop: 04/29/18 16:31 Last Admin: 04/29/18 16:30 Dose: Not Given Magnesium Oxide (Magnesium Oxide) 800 mg PO ONETIME ONE Stop: 05/01/18 14:20 Last Admin: 05/01/18 14:56 Dose: 800 mg Magnesium Oxide (Magnesium Oxide) 400 mg PO BID [facility] Last Admin: 05/02/18 08:56 Dose: 400 mg Magnesium Sulfate (Pharmacy To Dose - Magnesium Replacement) 0 dose .XX ASDIRECTED PRN PRN Reason: RX TO WATCH MAG Metoclopramide HCl (Reglan) 5 mg IVPUSH Q6H [facility] Stop: 04/29/18 18:16 Last Admin: 04/29/18 05:46 Dose: 5 mg Miscellaneous Information (Remove Patch) 1 ea TRDERM ONETIME ONE Stop: 05/01/18 21:01 Last Admin: 05/01/18 20:10 Dose: 1 ea Modafinil (Provigil) 100 mg PO DAILY ONE Stop: 04/29/18 12:32 Non-Formulary Medication (Sodium Chloride/Kcl [Thermotabs]) 1 each PO TID [facility] Ondansetron HCl (Zofran) 4 mg IV Q6H PRN PRN Reason: Nausea/Vomiting Oral Electrolytes (Thermotabs) 1 each PO TID [facility] Pharmacy Consult (Consult To Pharmacy) 1 each .XX ASDIRECTED [facility] Potassium Chloride (Pharmacy To Dose - Potassium Replacement) 0 dose .XX ASDIRECTED PRN PRN Reason: RX TO WATCH K Potassium Chloride (Klor-Con M20) 40 meq PO Q4H [facility] Stop: 04/28/18 17:01 Last Admin: 04/28/18 16:26 Dose: Not Given Saccharomyces Boulardii (Florastor) 250 mg PO DAILY [facility] Last Admin: 05/03/18 09:01 Dose: 250 mg Scopolamine (Transderm-Scop) 1.5 mg TRDERM ONETIME ONE Stop: 04/28/18 23:09 Last Admin: 04/28/18 23:52 Dose: 1.5 mg Vancomycin HCl (Pharmacy To Dose - Vancomycin) 0 dose .XX ASDIRECTED PRN PRN Reason: RX TO DOSE VANCO - Exam Quality Assessment: DVT Prophylaxis General: Alert, Oriented, No Acute Distress HEENT: Pupils Equal, Pupils Reactive, EOMI Neck: No JVD Lungs: Normal Respiratory Effort Cardiovascular: Regular Rate, Regular Rhythm GI/Abdominal Exam: Normal Bowel Sounds, Soft, Non-Tender, No Organomegaly, No Distention (Male) Exam: Deferred Back Exam: Normal Inspection Extremities: Normal Inspection, Non-Tender, Normal Capillary Refill Skin: Warm Neurological: No New Focal Deficit Psy/Mental Status: Alert, Normal Affect, Normal Mood - Problem List Review Problem List Initiated/Reviewed/Updated: Yes - My Orders Last 24 Hours: My Active Orders 05/03/18 09:00 Magnesium Oxide 800 mg PO DAILY 05/03/18 13:13 Consult to Physician [CONS] Routine 05/03/18 13:20 Notify Provider Consults [RC] ASDIRECTED 05/03/18 13:43 RESPIRATORY PANEL PCR [MREF] Routine 05/03/18 20:00 CULTURE STOOL + SHIGATOX [RM] Routine WBC, STOOL [OP] Routine 05/03/18 21:00 Doxycycline [Vibramycin] 100 mg Sodium Chloride 0.9% [Normal Saline] 100 ml IV Q12HR 05/04/18 05:00 BMP [BASIC METABOLIC PANEL,BMP] [CHEM] DAILY CBC WITH AUTO DIFF [HEME] DAILY CRP [C-REACTIVE PROTEIN] [CHEM] DAILY LACTIC ACID [CHEM] DAILY 05/04/18 09:00 Saccharomyces Boulardii [Florastor] 500 mg PO DAILY 05/05/18 05:00 BMP [BASIC METABOLIC PANEL,BMP] [CHEM] DAILY CBC WITH AUTO DIFF [HEME] DAILY CRP [C-REACTIVE PROTEIN] [CHEM] DAILY LACTIC ACID [CHEM] DAILY 05/06/18 05:00 BMP [BASIC METABOLIC PANEL,BMP] [CHEM] DAILY 05/07/18 05:00 BMP [BASIC METABOLIC PANEL,BMP] [CHEM] DAILY - Plan Plan:: Assessment/Plan: Acute: Encephalopathy - Suspect 2/2 Toxic/Metabolic +/- post ictal state - Heat CT scan shows no acute intra-cranial abnormality but not posterior scalp hematoma - He is easily arousable and open his eyes; unlikely encephalitis or meningitis at this point - Aspiration Precaution Sepsis from Gastroenteritis w/ Possible Ileus; improved, will start clear liquids - WBC 3.47 yesterday; now 5.05 - Fever with 38.3C - Hypotensive with documented BPs of 90/29 mmHg and 104/57 mmHg - Influenza screening negative - LA is 1.1 - CXR shows bibasilar atelectasis - UA unable to obtain; not cooperative - Blood culture and RVP - Repeat CBC and ordered Procalcitonin, ESR and CRP - IV Zosyn/Vancomycin and Levaquin for pharmacy to dose (has a hx/o Lycopenia which put him at increased risk for infection) Gastroenteritis - He has been vomiting numerous times - Ileostomy shows liquid stools - Fecal Cx/Sx plus C. Diff test - IV hydration and PRN anti-emesis Ileus S/p Hx/o SBO with Ileostomy - He has not had much gas in his ileostomy bag (flat) - Greenish colored liquid fecal matter - Ambulate and prokinetic agent Probable Seizure-->EEG today - Evidenced by posterior scalp hematoma on head CT scan - CK is 813 - He carries a hx/o Seizure Disorder and Hydrocephalus Congenital - Risk factor: Hyponatremia w/ a sodium level of 118-121 - Low sodium level known to cause seizure and in the setting of infection the threshold is lower - Unable to take oral salt tablets so we switched to 3% Hypertonic Solution with slow infusion (pharmacy to dose) - PRN Ativan for abortive seizure - Seizure Precautions - Offered EEG but unlikely he will cooperate with the procedure Hyponatremia, stable - Na 118--> 121-->139 - He is on SSRI a known drug that could cause hyponatremia; will hold it for now - Likely 2/2 GI loss and SSRI - IVF fluids and 3% Hypertonic Saline slow infusion - Daily labs PNA -Resume Zosyn/Levoquin, bilateral PNA; change to doxycycline/keep zosyn. Increase probiotic. Abdominal pain with bilateral hernias, as well as reported pain near stoma. Gen surg consult Chronic: PVD Constipation Scoliosis Seizure Disorder Hx/o Congenital Hydrocephalus Intellectual Disability Anxiety Depression Pseudolymphoma Hx/o Lycopenia Plan: MSP w/ Tele Routine AM Labs Resume Home Meds Aspiration/Seizure Precaution IS as directed IV ATBs re: PNA IV fluids for hydration PT/OT when appropriate SW/CM for d/c planning Code status: DNR/DNI LOS>96 hours with slow response to PNA/fever.
[2018-05-03] MEDS: Doxycycline 100 MG in Sodium Chloride 0.9% 100 ML IV SCH (21:21)
[2018-05-04] MEDS: Piperacillin/Tazobactam 4.5 GM in Sodium Chloride 0.9% 100 ML IV SCH ×3 (01:13→16:29)
[2018-05-04] MEDS: Ferrous Sulfate 325 MG Tab PO SCH (07:39)
--- NOTE | 2018-05-04 09:24 | PCM.SN ---
- Free Text/Narrative Note: Ask to see patient regarding abdominal pain and para-stomal hernia noted on CT. Complicated past surgical history that required total colectomy and end ileostomy placement about a year ago. Admitted here for pneumonia. Patient examined and chart and CT reviewed. Most notable is parastomal hernia on the right side. Does not seem to bee obstructive however. No dilated small bowel dilation. Ostomy has normal output. At the present time the patients pain seems to be minimal. No abdominal distention or vomiting. Unsure how long this hernia has been present or if it had caused the initial vomiting and possible aspiration. For now would not recommend surgical repair. Would be complicated surgery and if needed should be done at [facility] in [place] by his original surgeon. Surgery could be done here but post op support might be adequate. For now it appears the patient may soon be discharged and the family should make a surgical appointment for Sami soon. I had discussed all of this with his parents and it is agreeable to them.
--- NOTE | 2018-05-04 10:00 | PCM.PN ---
- General Info Date of Service: 05/04/18 Subjective Update: General Surgery Note "Ask to see patient regarding abdominal pain and para-stomal hernia noted on CT. Complicated past surgical history that required total colectomy and end ileostomy placement about a year ago. Admitted here for pneumonia. Patient examined and chart and CT reviewed. Most notable is parastomal hernia on the right side. Does not seem to bee obstructive however. No dilated small bowel dilation. Ostomy has normal output. At the present time the patients pain seems to be minimal. No abdominal distention or vomiting. Unsure how long this hernia has been present or if it had caused the initial vomiting and possible aspiration. For now would not recommend surgical repair. Would be complicated surgery and if needed should be done at [facility] in [place] by his original surgeon. Surgery could be done here but post op support might be adequate. For now it appears the patient may soon be discharged and the family should make a surgical appointment for Sami soon. I had discussed all of this with his parents and it is agreeable to them". Will need outpatient follow up with Dr Lomax, general surgeon at [facility] as noted above. This is not an urgent matter, it can be followed up as an outpatient. Patient is feeling better, spent 15 minutes explaining current treatment answering questions of out patient provider. Provider video taped the encounter without permission and was asked to delete it. An IRIS will be written regarding the event. Patient's mother was also notified of the occurrence. Functional Status: Reports: Pain Controlled, Tolerating Diet, Ambulating, Urinating - Review of Systems General: Reports: No Symptoms HEENT: Reports: No Symptoms Pulmonary: Reports: No Symptoms Cardiovascular: Reports: No Symptoms Gastrointestinal: Reports: No Symptoms Genitourinary: Reports: No Symptoms Musculoskeletal: Reports: No Symptoms Skin: Reports: No Symptoms Neurological: Reports: No Symptoms Psychiatric: Reports: No Symptoms - Patient Data Vitals - Most Recent: Last Vital Signs Temp 36.6 C 05/04/18 07:59 Pulse 65 05/04/18 07:59 Resp 14 05/04/18 07:59 BP 123/75 05/04/18 07:59 Pulse Ox 92 L 05/04/18 07:59 Weight - Most Recent: 87.634 kg I&O - Last 24 Hours: Intake & Output 05/03/18 05/04/1819 22:59 06:59 14:59 Intake Total 740 900 Output Total 150 800 Balance 590 100 Lab Results Last 24 Hours: Laboratory Results - last 24 hr 05/04/18 05/04/18 05/04/18 Range/Units 05:49 05:49 05:49 WBC 3.14 L (4.23-9.07) K/mm3 RBC 4.98 (4.63-6.08) M/mm3 Hgb 13.8 (13.7-17.5) gm/L Hct 42.4 (40.1-51.0) % MCV 85.1 (79.0-92.2) fl MCH 27.7 (25.7-32.2) pg MCHC 32.5 (32.2-35.5) g/dl RDW Std Deviation 44.0 H (35.1-43.9) fL Plt Count 144 L (163-337) K/mm3 MPV 9.6 (9.4-12.3) fl Neut % (Auto) 63.1 (34.0-67.9) % Lymph % (Auto) 18.8 L (21.8-53.1) % [place] % (Auto) 14.3 H (5.3-12.2) % Eos % (Auto) 3.2 (0.8-7.0) Baso % (Auto) 0.3 (0.1-1.2) % Neut # (Auto) 1.98 (1.78-5.38) K/mm3 Lymph # (Auto) 0.59 L (1.32-3.57) K/mm3 [place] # (Auto) 0.45 (0.30-0.82) K/mm3 Eos # (Auto) 0.10 (0.04-0.54) K/mm3 Baso # (Auto) 0.01 (0.01-0.08) K/mm3 Sodium 139 (136-145) mEq/L Potassium 3.9 (3.5-5.1) mEq/L Chloride 103 (98-107) mEq/L Carbon Dioxide 27 (21-32) mEq/L Anion Gap 12.9 (5-15) BUN 7 (7-18) mg/dL Creatinine 1.0 (0.7-1.3) mg/dL Est Cr Clr Drug Dosing 120.10 mL/min Estimated GFR (MDRD) > 60 (>60) mL/min BUN/Creatinine Ratio 7.0 L (14-18) Glucose 96 (74-106) mg/dL Lactic Acid 1.0 (0.4-2.0) mmol/L Calcium 9.0 (8.5-10.1) mg/dL C-Reactive Protein 1.0 (<1.0) mg/dL Emmett Results Last 24 Hours: Microbiology 05/03/18 23:30 Stool for WBCs - Final Stool / Feces - Stool, Liquid NO WBC SEEN 04/28/18 15:03 Aerobic Blood Culture - Preliminary Blood - Venous - Lab Draw NO GROWTH AFTER 5 DAYS Anaerobic Blood Culture - Final 04/28/18 14:50 Aerobic Blood Culture - Preliminary Blood - Venous NO GROWTH AFTER 5 DAYS Anaerobic Blood Culture - Preliminary NO GROWTH AFTER 5 DAYS 05/02/18 14:10 Aerobic Blood Culture - Preliminary Blood - Venous - Lab Draw NO GROWTH AFTER 1 DAY Anaerobic Blood Culture - Preliminary NO GROWTH AFTER 1 DAY 05/02/18 14:20 Aerobic Blood Culture - Preliminary Blood - Venous NO GROWTH AFTER 1 DAY Anaerobic Blood Culture - Preliminary NO GROWTH AFTER 1 DAY Med Orders - Current: Current Medications Acetaminophen (Tylenol) 650 mg PO Q4H PRN PRN Reason: Pain (Mild 1-3)/fever Last Admin: 05/03/18 13:27 Dose: 650 mg Acetaminophen (Tylenol) 650 mg RECTAL Q4H PRN PRN Reason: Pain (mild 1-3) Last Admin: 04/28/18 22:03 Dose: 650 mg Hydrocodone Bitart/Acetaminophen ([place] 325-5 Mg) 1 tab PO Q4H PRN PRN Reason: Pain (moderate 4-6) Albuterol/Ipratropium (Duoneb 3.0-0.5 Mg/3 Ml) 3 ml NEB Q4H PRN PRN Reason: Shortness Of Breath/wheezing Bisacodyl (Dulcolax) 5 mg PO DAILY PRN PRN Reason: Constipation Cholecalciferol (Vitamin D3) 1,000 units PO DAILY [facility] Last Admin: 05/03/18 09:03 Dose: 1,000 units Docusate Sodium (Colace) 100 mg PO BID PRN PRN Reason: Constipation Famotidine (Pepcid) 20 mg PO BID [facility] Last Admin: 05/03/18 21:21 Dose: 20 mg Ferrous Sulfate (Ferrous Sulfate) 325 mg PO ACBREAKFAST [facility] Last Admin: 05/04/18 07:39 Dose: 325 mg Hydralazine HCl (Apresoline) 20 mg IVPUSH Q4H PRN PRN Reason: Hypertension Hydromorphone HCl (Dilaudid) 0.25 mg IVPUSH Q2H PRN PRN Reason: Pain (severe 7-10) Piperacillin Sod/Tazobactam (Sod 4.5 gm/ Sodium Chloride) 100 mls @ 25 mls/hr IV Q8H [facility] Last Admin: 05/04/18 01:13 Dose: 25 mls/hr Doxycycline Hyclate 100 mg/ (Sodium Chloride) 100 mls @ 100 mls/hr IV Q12HR [facility] Last Admin: 05/03/18 21:21 Dose: 100 mls/hr Lorazepam (Ativan) 2 mg IVPUSH Q4H PRN PRN Reason: Seizures Lorazepam (Ativan) 0.5 mg IV Q6H PRN PRN Reason: Anxiety Magnesium Oxide (Magnesium Oxide) 800 mg PO DAILY [facility] Last Admin: 05/03/18 09:03 Dose: 800 mg Metoprolol Tartrate (Lopressor) 5 mg IVPUSH Q4H PRN PRN Reason: Tachycardia Saccharomyces Boulardii (Florastor) 500 mg PO DAILY [facility] Senna/Docusate Sodium (Senna Plus) 1 tab PO BID PRN PRN Reason: Constipation Sodium Chloride (Saline Flush) 10 ml FLUSH ONETIME PRN PRN Reason: IV FLUSH Last Admin: 05/01/18 14:28 Dose: 10 ml Discontinued Medications Famotidine (Pepcid) 20 mg IVPUSH BID [facility] Stop: 05/01/18 21:01 Last Admin: 04/30/18 08:41 Dose: 20 mg Sodium Chloride (Normal Saline) 1,000 mls @ 999 mls/hr IV ONETIME ONE Stop: 04/28/18 07:45 Last Admin: 04/28/18 06:45 Dose: 999 mls/hr Sodium Chloride (Normal Saline) 1,000 mls @ 150 mls/hr IV ASDIRECTED [facility] Last Admin: 04/28/18 09:38 Dose: 150 mls/hr Sodium Chloride (Sodium Chloride 3%) 250 mls @ 7.5 mls/hr IV ONETIME ONE Stop: 04/29/18 23:04 Last Admin: 04/28/18 14:46 Dose: 7.5 mls/hr Piperacillin Sod/Tazobactam (Sod 4.5 gm/ Sodium Chloride) 100 mls @ 200 mls/hr IV ONETIME ONE Stop: 04/28/18 23:14 Last Admin: 04/28/18 23:51 Dose: 200 mls/hr Vancomycin HCl 1 gm/Vancomycin HCl 250 mg/ Sodium Chloride 500 mls @ 333.025 mls/hr IV Q8H [facility] Stop: 04/29/18 21:00 Last Admin: 04/29/18 18:08 Dose: 333.025 mls/hr Levofloxacin/Dextrose 500 mg/ (Premix) 100 mls @ 100 mls/hr IV DAILY@1999 [facility] Last Admin: 04/30/18 20:10 Dose: 100 mls/hr Piperacillin Sod/Tazobactam (Sod 4.5 gm/ Sodium Chloride) 100 mls @ 25 mls/hr IV Q8H [facility] Last Admin: 04/30/18 04:09 Dose: 25 mls/hr Potassium Chloride/Sodium Chloride (Normal Saline With 20 Meq Kcl) 1,000 mls @ 75 mls/hr IV ASDIRECTED [facility] Last Admin: 05/01/18 03:28 Dose: 75 mls/hr Vancomycin HCl 1 gm/Vancomycin HCl 250 mg/ Sodium Chloride 250 mls @ 166.667 mls/hr IV Q8H [facility] Last Admin: 04/30/18 11:26 Dose: Not Given Magnesium Sulfate 2 gm/ Premix 50 mls @ 25 mls/hr IV ONETIME ONE Stop: 04/30/18 13:02 Last Admin: 04/30/18 11:35 Dose: 25 mls/hr Magnesium Sulfate 4 gm/ Premix 50 mls @ 12.5 mls/hr IV ONETIME ONE Stop: 05/01/18 14:39 Last Admin: 05/01/18 11:52 Dose: 12.5 mls/hr Sodium Chloride (Normal Saline) 500 mls @ 100 mls/hr IV ONETIME ONE Stop: 05/01/18 17:44 Last Admin: 05/01/18 14:23 Dose: Not Given Levofloxacin/Dextrose 750 mg/ (Premix) 150 mls @ 100 mls/hr IV Q24H [facility] Last Admin: 05/02/18 20:29 Dose: 100 mls/hr Piperacillin Sod/Tazobactam (Sod 4.5 gm/ Sodium Chloride) 100 mls @ 200 mls/hr IV Q8H [facility] Piperacillin Sod/Tazobactam (Sod 4.5 gm/ Sodium Chloride) 100 mls @ 25 mls/hr IV Q8H [facility] Last Admin: 05/01/18 16:33 Dose: Not Given Piperacillin Sod/Tazobactam (Sod 4.5 gm/ Sodium Chloride) 100 mls @ 200 mls/hr IV ONETIME ONE Stop: 05/01/18 16:29 Last Admin: 05/01/18 16:13 Dose: 200 mls/hr Sodium Chloride (Normal Saline) 1,000 mls @ 150 mls/hr IV ASDIRECTED [facility] Stop: 05/02/18 13:00 Sodium Chloride (Normal Saline) 1,000 mls @ 100 mls/hr IV ASDIRECTED [facility] Last Admin: 05/02/18 18:35 Dose: 100 mls/hr Metronidazole 500 mg/ Premix 100 mls @ 100 mls/hr IV Q8H [facility] Iopamidol (Isovue-370 (76%)) 100 ml IV ONETIME ONE Stop: 05/01/18 13:50 Last Admin: 05/01/18 14:27 Dose: 100 ml Lorazepam (Ativan) 1 mg IVPUSH ONETIME ONE Stop: 05/03/18 13:43 Last Admin: 05/03/18 16:18 Dose: Not Given Lorazepam (Ativan) Confirm Administered Dose 2 mg .ROUTE .STK-MED ONE Stop: 05/03/18 13:47 Last Admin: 05/03/18 16:17 Dose: 1 mg Magnesium Oxide (Magnesium Oxide) 800 mg PO ONETIME ONE Stop: 04/29/18 14:01 Last Admin: 04/29/18 16:29 Dose: 800 mg Magnesium Oxide (Magnesium Oxide) 800 mg PO ONETIME ONE Stop: 04/29/18 16:31 Last Admin: 04/29/18 16:30 Dose: Not Given Magnesium Oxide (Magnesium Oxide) 800 mg PO ONETIME ONE Stop: 05/01/18 14:20 Last Admin: 05/01/18 14:56 Dose: 800 mg Magnesium Oxide (Magnesium Oxide) 400 mg PO BID [facility] Last Admin: 05/02/18 08:56 Dose: 400 mg Magnesium Sulfate (Pharmacy To Dose - Magnesium Replacement) 0 dose .XX ASDIRECTED PRN PRN Reason: RX TO WATCH MAG Metoclopramide HCl (Reglan) 5 mg IVPUSH Q6H [facility] Stop: 04/29/18 18:16 Last Admin: 04/29/18 05:46 Dose: 5 mg Miscellaneous Information (Remove Patch) 1 ea TRDERM ONETIME ONE Stop: 05/01/18 21:01 Last Admin: 05/01/18 20:10 Dose: 1 ea Modafinil (Provigil) 100 mg PO DAILY ONE Stop: 04/29/18 12:32 Non-Formulary Medication (Sodium Chloride/Kcl [Thermotabs]) 1 each PO TID [facility] Ondansetron HCl (Zofran) 4 mg IV Q6H PRN PRN Reason: Nausea/Vomiting Oral Electrolytes (Thermotabs) 1 each PO TID [facility] Pharmacy Consult (Consult To Pharmacy) 1 each .XX ASDIRECTED [facility] Potassium Chloride (Pharmacy To Dose - Potassium Replacement) 0 dose .XX ASDIRECTED PRN PRN Reason: RX TO WATCH K Potassium Chloride (Klor-Con M20) 40 meq PO Q4H [facility] Stop: 04/28/18 17:01 Last Admin: 04/28/18 16:26 Dose: Not Given Saccharomyces Boulardii (Florastor) 250 mg PO DAILY [facility] Last Admin: 05/03/18 09:01 Dose: 250 mg Scopolamine (Transderm-Scop) 1.5 mg TRDERM ONETIME ONE Stop: 04/28/18 23:09 Last Admin: 04/28/18 23:52 Dose: 1.5 mg Vancomycin HCl (Pharmacy To Dose - Vancomycin) 0 dose .XX ASDIRECTED PRN PRN Reason: RX TO DOSE VANCO - Exam Quality Assessment: DVT Prophylaxis General: Alert, Oriented, Cooperative, No Acute Distress HEENT: Pupils Equal, Pupils Reactive, EOMI Neck: Trachea Midline, No JVD Lungs: Normal Respiratory Effort Cardiovascular: Regular Rate, Regular Rhythm GI/Abdominal Exam: Normal Bowel Sounds, Soft, Non-Tender, No Organomegaly, No Distention (Male) Exam: Hernia (peristomal) Back Exam: Normal Inspection Extremities: Normal Inspection, Non-Tender, Normal Capillary Refill Skin: Warm Neurological: No New Focal Deficit Psy/Mental Status: Alert, Normal Affect, Normal Mood - Problem List Review Problem List Initiated/Reviewed/Updated: Yes - My Orders Last 24 Hours: My Active Orders 05/03/18 09:00 Magnesium Oxide 800 mg PO DAILY 05/03/18 13:13 Consult to Physician [CONS] Routine 05/03/18 13:20 Notify Provider Consults [RC] ASDIRECTED 05/03/18 18:55 RESPIRATORY PANEL PCR [MREF] Routine 05/03/18 21:00 Doxycycline [Vibramycin] 100 mg Sodium Chloride 0.9% [Normal Saline] 100 ml IV Q12HR 05/03/18 23:20 CULTURE STOOL + SHIGATOX [RM] Routine 05/04/18 09:00 Saccharomyces Boulardii [Florastor] 500 mg PO DAILY 05/05/18 05:00 BMP [BASIC METABOLIC PANEL,BMP] [CHEM] DAILY CBC WITH AUTO DIFF [HEME] DAILY CRP [C-REACTIVE PROTEIN] [CHEM] DAILY LACTIC ACID [CHEM] DAILY 05/06/18 05:00 BMP [BASIC METABOLIC PANEL,BMP] [CHEM] DAILY 05/07/18 05:00 BMP [BASIC METABOLIC PANEL,BMP] [CHEM] DAILY - Plan Plan:: Assessment/Plan: Acute: Encephalopathy - Suspect 2/2 Toxic/Metabolic +/- post ictal state - Heat CT scan shows no acute intra-cranial abnormality but not posterior scalp hematoma - He is easily arousable and open his eyes; unlikely encephalitis or meningitis at this point - Aspiration Precaution Sepsis from Gastroenteritis w/ Possible Ileus; improved, will start clear liquids - WBC 3.47 yesterday; now 5.05 - Fever with 38.3C - Hypotensive with documented BPs of 90/29 mmHg and 104/57 mmHg - Influenza screening negative - LA is 1.1 - CXR shows bibasilar atelectasis - UA unable to obtain; not cooperative - Blood culture and RVP - Repeat CBC and ordered Procalcitonin, ESR and CRP - IV Zosyn/Vancomycin and Levaquin for pharmacy to dose (has a hx/o Lycopenia which put him at increased risk for infection) Gastroenteritis - He has been vomiting numerous times - Ileostomy shows liquid stools - Fecal Cx/Sx plus C. Diff test - IV hydration and PRN anti-emesis Ileus S/p Hx/o SBO with Ileostomy - He has not had much gas in his ileostomy bag (flat) - Greenish colored liquid fecal matter - Ambulate and prokinetic agent Probable Seizure-->EEG today - Evidenced by posterior scalp hematoma on head CT scan - CK is 813 - He carries a hx/o Seizure Disorder and Hydrocephalus Congenital - Risk factor: Hyponatremia w/ a sodium level of 118-121 - Low sodium level known to cause seizure and in the setting of infection the threshold is lower - Unable to take oral salt tablets so we switched to 3% Hypertonic Solution with slow infusion (pharmacy to dose) - PRN Ativan for abortive seizure - Seizure Precautions - Offered EEG but unlikely he will cooperate with the procedure Hyponatremia, stable - Na 118--> 121-->139 - He is on SSRI a known drug that could cause hyponatremia; will hold it for now - Likely 2/2 GI loss and SSRI - IVF fluids and 3% Hypertonic Saline slow infusion - Daily labs PNA -Bilateral PNA; change to doxycycline, DC on oral 05/06/18/zosyn, DC . Increase probiotic, 500 mg daily. Abdominal pain with bilateral hernias, as well as reported pain near stoma. Gen surg consult, see subjective section Peristomal hernia-->stable, [facility] Chronic: PVD Constipation Scoliosis Seizure Disorder Hx/o Congenital Hydrocephalus Intellectual Disability Anxiety Depression Pseudolymphoma Hx/o Lycopenia Plan: MSP w/ Tele Routine AM Labs Home Meds Aspiration/Seizure Precaution IS as directed IV ATBs re: PNA; Doxy at DC. IV fluids for hydration PT/OT when appropriate SW/CM for d/c planning Code status: DNR/DNI LOS>96 hours with slow response to PNA/fever.
[2018-05-04] MEDS: Saccharomyces Boulardii (Probiotic) 250 MG Cap PO SCH (10:17)
[2018-05-04] MEDS: Cholecalciferol (Vitamin D3) 1,000 Unit Tab PO SCH (10:18)
[2018-05-04] MEDS: Famotidine 20 MG Tab PO SCH ×2 (10:18→20:43)
[2018-05-04] MEDS: Magnesium Oxide 400 MG Tab PO SCH (10:18)
[2018-05-04] MEDS: Doxycycline 100 MG in Sodium Chloride 0.9% 100 ML IV SCH ×2 (14:31→20:43)
[2018-05-04] MEDS: Acetaminophen 325 MG Tab PO PRN ×2 (14:54→21:52)
[2018-05-04] MEDS ORDERED: Ibuprofen 600 MG Tab PO PRN (16:08)
[2018-05-05] MEDS: Piperacillin/Tazobactam 4.5 GM in Sodium Chloride 0.9% 100 ML IV SCH ×2 (01:49→09:39)
[2018-05-05] MEDS: Ferrous Sulfate 325 MG Tab PO SCH (06:23)
[2018-05-05] MEDS: Acetaminophen 325 MG Tab PO PRN ×3 (06:28→18:14)
[2018-05-05] MEDS: Famotidine 20 MG Tab PO SCH ×2 (09:24→20:32)
[2018-05-05] MEDS: Saccharomyces Boulardii (Probiotic) 250 MG Cap PO SCH (09:24)
[2018-05-05] MEDS: Cholecalciferol (Vitamin D3) 1,000 Unit Tab PO SCH (09:26)
[2018-05-05] MEDS: Magnesium Oxide 400 MG Tab PO SCH (09:27)
[2018-05-05] MEDS: Doxycycline 100 MG in Sodium Chloride 0.9% 100 ML IV SCH ×2 (09:28→20:34)
--- NOTE | 2018-05-05 15:11 | PCM.PN ---
- General Info Date of Service: 05/05/18 Functional Status: Reports: Pain Controlled, Tolerating Diet, Ambulating, Urinating - Review of Systems General: Reports: No Symptoms HEENT: Reports: No Symptoms Pulmonary: Reports: No Symptoms Cardiovascular: Reports: No Symptoms Gastrointestinal: Reports: No Symptoms Genitourinary: Reports: No Symptoms Musculoskeletal: Reports: No Symptoms Skin: Reports: No Symptoms Neurological: Reports: No Symptoms Psychiatric: Reports: No Symptoms - Patient Data Vitals - Most Recent: Last Vital Signs Temp 37.5 C 05/05/18 08:15 Pulse 85 05/05/18 08:15 Resp 20 05/05/18 08:15 BP 116/59 L 05/05/18 08:15 Pulse Ox 99 05/05/18 11:00 Weight - Most Recent: 86.954 kg I&O - Last 24 Hours: Intake & Output 05/05/18 05/05/18 05/05/18 06:59 14:59 22:59 Intake Total 800 760 Output Total 750 Balance 50 760 [place] Results Last 24 Hours: Microbiology 05/02/18 14:10 Aerobic Blood Culture - Preliminary Blood - Venous - Lab Draw NO GROWTH AFTER 3 DAYS Anaerobic Blood Culture - Preliminary NO GROWTH AFTER 3 DAYS 05/02/18 14:20 Aerobic Blood Culture - Preliminary Blood - Venous NO GROWTH AFTER 3 DAYS Anaerobic Blood Culture - Preliminary NO GROWTH AFTER 3 DAYS 05/03/18 23:20 Stool Culture - Preliminary Stool / Feces Shiga Toxin I - Final NEGATIVE FOR SHIGA TOXIN 1 Shiga Toxin II - Final NEGATIVE FOR SHIGA TOXIN 2 04/28/18 15:03 Aerobic Blood Culture - Preliminary Blood - Venous - Lab Draw NO GROWTH AFTER 6 DAYS Anaerobic Blood Culture - Final 04/28/18 14:50 Aerobic Blood Culture - Preliminary Blood - Venous NO GROWTH AFTER 6 DAYS Anaerobic Blood Culture - Preliminary NO GROWTH AFTER 6 DAYS Med Orders - Current: Current Medications Acetaminophen (Tylenol) 650 mg PO Q4H PRN PRN Reason: Pain (Mild 1-3)/fever Last Admin: 05/05/18 11:14 Dose: 650 mg Acetaminophen (Tylenol) 650 mg RECTAL Q4H PRN PRN Reason: Pain (mild 1-3) Last Admin: 04/28/18 22:03 Dose: 650 mg Hydrocodone Bitart/Acetaminophen ([place] 325-5 Mg) 1 tab PO Q4H PRN PRN Reason: Pain (moderate 4-6) Albuterol/Ipratropium (Duoneb 3.0-0.5 Mg/3 Ml) 3 ml NEB Q4H PRN PRN Reason: Shortness Of Breath/wheezing Bisacodyl (Dulcolax) 5 mg PO DAILY PRN PRN Reason: Constipation Cholecalciferol (Vitamin D3) 1,000 units PO DAILY [facility] Last Admin: 05/05/18 09:26 Dose: 1,000 units Docusate Sodium (Colace) 100 mg PO BID PRN PRN Reason: Constipation Famotidine (Pepcid) 20 mg PO BID [facility] Last Admin: 05/05/18 09:24 Dose: 20 mg Ferrous Sulfate (Ferrous Sulfate) 325 mg PO ACBREAKFAST [facility] Last Admin: 05/05/18 06:23 Dose: 325 mg Hydralazine HCl (Apresoline) 20 mg IVPUSH Q4H PRN PRN Reason: Hypertension Hydromorphone HCl (Dilaudid) 0.25 mg IVPUSH Q2H PRN PRN Reason: Pain (severe 7-10) Doxycycline Hyclate 100 mg/ (Sodium Chloride) 100 mls @ 100 mls/hr IV Q12HR [facility] Last Admin: 05/05/18 09:28 Dose: 100 mls/hr Ibuprofen (Motrin) 600 mg PO Q6H PRN PRN Reason: Pain/Fever Last Admin: 05/04/18 16:13 Dose: 600 mg Lorazepam (Ativan) 2 mg IVPUSH Q4H PRN PRN Reason: Seizures Lorazepam (Ativan) 0.5 mg IV Q6H PRN PRN Reason: Anxiety Magnesium Oxide (Magnesium Oxide) 800 mg PO DAILY [facility] Last Admin: 05/05/18 09:27 Dose: 800 mg Metoprolol Tartrate (Lopressor) 5 mg IVPUSH Q4H PRN PRN Reason: Tachycardia Saccharomyces Boulardii (Florastor) 500 mg PO DAILY [facility] Last Admin: 05/05/18 09:24 Dose: 500 mg Senna/Docusate Sodium (Senna Plus) 1 tab PO BID PRN PRN Reason: Constipation Sodium Chloride (Saline Flush) 10 ml FLUSH ONETIME PRN PRN Reason: IV FLUSH Last Admin: 05/01/18 14:28 Dose: 10 ml Discontinued Medications Famotidine (Pepcid) 20 mg IVPUSH BID [facility] Stop: 05/01/18 21:01 Last Admin: 04/30/18 08:41 Dose: 20 mg Sodium Chloride (Normal Saline) 1,000 mls @ 999 mls/hr IV ONETIME ONE Stop: 04/28/18 07:45 Last Admin: 04/28/18 06:45 Dose: 999 mls/hr Sodium Chloride (Normal Saline) 1,000 mls @ 150 mls/hr IV ASDIRECTED [facility] Last Admin: 04/28/18 09:38 Dose: 150 mls/hr Sodium Chloride (Sodium Chloride 3%) 250 mls @ 7.5 mls/hr IV ONETIME ONE Stop: 04/29/18 23:04 Last Admin: 04/28/18 14:46 Dose: 7.5 mls/hr Piperacillin Sod/Tazobactam (Sod 4.5 gm/ Sodium Chloride) 100 mls @ 200 mls/hr IV ONETIME ONE Stop: 04/28/18 23:14 Last Admin: 04/28/18 23:51 Dose: 200 mls/hr Vancomycin HCl 1 gm/Vancomycin HCl 250 mg/ Sodium Chloride 500 mls @ 333.025 mls/hr IV Q8H [facility] Stop: 04/29/18 21:00 Last Admin: 04/29/18 18:08 Dose: 333.025 mls/hr Levofloxacin/Dextrose 500 mg/ (Premix) 100 mls @ 100 mls/hr IV DAILY@2000 [facility] Last Admin: 04/30/18 20:10 Dose: 100 mls/hr Piperacillin Sod/Tazobactam (Sod 4.5 gm/ Sodium Chloride) 100 mls @ 25 mls/hr IV Q8H [facility] Last Admin: 04/30/18 04:09 Dose: 25 mls/hr Potassium Chloride/Sodium Chloride (Normal Saline With 20 Meq Kcl) 1,000 mls @ 75 mls/hr IV ASDIRECTED [facility] Last Admin: 05/01/18 03:28 Dose: 75 mls/hr Vancomycin HCl 1 gm/Vancomycin HCl 250 mg/ Sodium Chloride 250 mls @ 166.667 mls/hr IV Q8H [facility] Last Admin: 04/30/18 11:26 Dose: Not Given Magnesium Sulfate 2 gm/ Premix 50 mls @ 25 mls/hr IV ONETIME ONE Stop: 04/30/18 13:02 Last Admin: 04/30/18 11:35 Dose: 25 mls/hr Magnesium Sulfate 4 gm/ Premix 50 mls @ 12.5 mls/hr IV ONETIME ONE Stop: 05/01/18 14:39 Last Admin: 05/01/18 11:52 Dose: 12.5 mls/hr Sodium Chloride (Normal Saline) 500 mls @ 100 mls/hr IV ONETIME ONE Stop: 05/01/18 17:44 Last Admin: 05/01/18 14:23 Dose: Not Given Levofloxacin/Dextrose 750 mg/ (Premix) 150 mls @ 100 mls/hr IV Q24H [facility] Last Admin: 05/02/18 20:29 Dose: 100 mls/hr Piperacillin Sod/Tazobactam (Sod 4.5 gm/ Sodium Chloride) 100 mls @ 200 mls/hr IV Q8H [facility] Piperacillin Sod/Tazobactam (Sod 4.5 gm/ Sodium Chloride) 100 mls @ 25 mls/hr IV Q8H [facility] Last Admin: 05/01/18 16:33 Dose: Not Given Piperacillin Sod/Tazobactam (Sod 4.5 gm/ Sodium Chloride) 100 mls @ 200 mls/hr IV ONETIME ONE Stop: 05/01/18 16:29 Last Admin: 05/01/18 16:13 Dose: 200 mls/hr Piperacillin Sod/Tazobactam (Sod 4.5 gm/ Sodium Chloride) 100 mls @ 25 mls/hr IV Q8H [facility] Stop: 05/05/18 12:00 Last Admin: 05/05/18 09:39 Dose: 25 mls/hr Sodium Chloride (Normal Saline) 1,000 mls @ 150 mls/hr IV ASDIRECTED [facility] Stop: 05/02/18 13:00 Sodium Chloride (Normal Saline) 1,000 mls @ 100 mls/hr IV ASDIRECTED [facility] Last Admin: 05/02/18 18:35 Dose: 100 mls/hr Metronidazole 500 mg/ Premix 100 mls @ 100 mls/hr IV Q8H [facility] Iopamidol (Isovue-370 (76%)) 100 ml IV ONETIME ONE Stop: 05/01/18 13:50 Last Admin: 05/01/18 14:27 Dose: 100 ml Lorazepam (Ativan) 1 mg IVPUSH ONETIME ONE Stop: 05/03/18 13:43 Last Admin: 05/03/18 16:18 Dose: Not Given Lorazepam (Ativan) Confirm Administered Dose 2 mg .ROUTE .STK-MED ONE Stop: 05/03/18 13:47 Last Admin: 05/03/18 16:17 Dose: 1 mg Magnesium Oxide (Magnesium Oxide) 800 mg PO ONETIME ONE Stop: 04/29/18 14:01 Last Admin: 04/29/18 16:29 Dose: 800 mg Magnesium Oxide (Magnesium Oxide) 800 mg PO ONETIME ONE Stop: 04/29/18 16:31 Last Admin: 04/29/18 16:30 Dose: Not Given Magnesium Oxide (Magnesium Oxide) 800 mg PO ONETIME ONE Stop: 05/01/18 14:20 Last Admin: 05/01/18 14:56 Dose: 800 mg Magnesium Oxide (Magnesium Oxide) 400 mg PO BID [facility] Last Admin: 05/02/18 08:56 Dose: 400 mg Magnesium Sulfate (Pharmacy To Dose - Magnesium Replacement) 0 dose .XX ASDIRECTED PRN PRN Reason: RX TO WATCH MAG Metoclopramide HCl (Reglan) 5 mg IVPUSH Q6H [facility] Stop: 04/29/18 18:16 Last Admin: 04/29/18 05:46 Dose: 5 mg Miscellaneous Information (Remove Patch) 1 ea TRDERM ONETIME ONE Stop: 05/01/18 21:01 Last Admin: 05/01/18 20:10 Dose: 1 ea Modafinil (Provigil) 100 mg PO DAILY ONE Stop: 04/29/18 12:32 Non-Formulary Medication (Sodium Chloride/Kcl [Thermotabs]) 1 each PO TID [facility] Ondansetron HCl (Zofran) 4 mg IV Q6H PRN PRN Reason: Nausea/Vomiting Oral Electrolytes (Thermotabs) 1 each PO TID [facility] Pharmacy Consult (Consult To Pharmacy) 1 each .XX ASDIRECTED [facility] Potassium Chloride (Pharmacy To Dose - Potassium Replacement) 0 dose .XX ASDIRECTED PRN PRN Reason: RX TO WATCH K Potassium Chloride (Klor-Con M20) 40 meq PO Q4H [facility] Stop: 04/28/18 17:01 Last Admin: 04/28/18 16:26 Dose: Not Given Saccharomyces Boulardii (Florastor) 250 mg PO DAILY [facility] Last Admin: 05/03/18 09:01 Dose: 250 mg Scopolamine (Transderm-Scop) 1.5 mg TRDERM ONETIME ONE Stop: 04/28/18 23:09 Last Admin: 04/28/18 23:52 Dose: 1.5 mg Vancomycin HCl (Pharmacy To Dose - Vancomycin) 0 dose .XX ASDIRECTED PRN PRN Reason: RX TO DOSE VANCO - Exam Quality Assessment: DVT Prophylaxis General: Alert, Oriented, Cooperative, No Acute Distress HEENT: Pupils Equal, Pupils Reactive, EOMI Neck: Trachea Midline, No JVD Lungs: Normal Respiratory Effort - Problem List Review Problem List Initiated/Reviewed/Updated: Yes - My Orders Last 24 Hours: My Active Orders 05/04/18 16:08 Ibuprofen [Motrin] 600 mg PO Q6H PRN 05/05/18 05:00 BMP [BASIC METABOLIC PANEL,BMP] [CHEM] DAILY CBC WITH AUTO DIFF [HEME] DAILY CRP [C-REACTIVE PROTEIN] [CHEM] DAILY LACTIC ACID [CHEM] DAILY 05/06/18 05:00 BMP [BASIC METABOLIC PANEL,BMP] [CHEM] DAILY 05/06/18 07:00 CXR [Chest 2V] [CR] Routine 05/07/18 05:00 BMP [BASIC METABOLIC PANEL,BMP] [CHEM] DAILY - Plan Plan:: Assessment/Plan: Acute: Encephalopathy - Suspect 2/2 Toxic/Metabolic +/- post ictal state - Heat CT scan shows no acute intra-cranial abnormality but not posterior scalp hematoma - He is easily arousable and open his eyes; unlikely encephalitis or meningitis at this point - Aspiration Precaution Sepsis from Gastroenteritis w/ Possible Ileus; improved, will start clear liquids - WBC 3.47 yesterday; now 5.05 - Fever with 38.3C - Hypotensive with documented BPs of 90/29 mmHg and 104/57 mmHg - Influenza screening negative - LA is 1.1 - CXR shows bibasilar atelectasis - UA unable to obtain; not cooperative - Blood culture and RVP - Repeat CBC and ordered Procalcitonin, ESR and CRP - IV Zosyn/Vancomycin and Levaquin for pharmacy to dose (has a hx/o Lycopenia which put him at increased risk for infection) Gastroenteritis - He has been vomiting numerous times - Ileostomy shows liquid stools - Fecal Cx/Sx plus C. Diff test - IV hydration and PRN anti-emesis Ileus S/p Hx/o SBO with Ileostomy - He has not had much gas in his ileostomy bag (flat) - Greenish colored liquid fecal matter - Ambulate and prokinetic agent Probable Seizure-->EEG today - Evidenced by posterior scalp hematoma on head CT scan - CK is 813 - He carries a hx/o Seizure Disorder and Hydrocephalus Congenital - Risk factor: Hyponatremia w/ a sodium level of 118-121 - Low sodium level known to cause seizure and in the setting of infection the threshold is lower - Unable to take oral salt tablets so we switched to 3% Hypertonic Solution with slow infusion (pharmacy to dose) - PRN Ativan for abortive seizure - Seizure Precautions - Offered EEG but unlikely he will cooperate with the procedure Hyponatremia, stable - Na 118--> 121-->139 - He is on SSRI a known drug that could cause hyponatremia; will hold it for now - Likely 2/2 GI loss and SSRI - IVF fluids and 3% Hypertonic Saline slow infusion - Daily labs PNA -Bilateral PNA; change to doxycycline, DC on oral 05/06/18/zosyn, DC . Increase probiotic, 500 mg daily. Abdominal pain with bilateral hernias, as well as reported pain near stoma. Gen surg consult, see subjective section Peristomal hernia-->stable, OP eval with previous gen surg at [facility], Dr Lomax. Chronic: PVD Constipation Scoliosis Seizure Disorder Hx/o Congenital Hydrocephalus Intellectual Disability Anxiety Depression Pseudolymphoma Hx/o Lycopenia Plan: MSP w/ Tele Routine AM Labs Home Meds Aspiration/Seizure Precaution IS as directed IV ATBs re: PNA; Doxy at DC. IV fluids for hydration PT/OT when appropriate SW/CM for d/c planning Code status: DNR/DNI LOS>96 hours with slow response to PNA/fever. DC home 05/06/18
[2018-05-05] MEDS ORDERED: Temazepam 7.5 MG Cap PO PRN (21:11)
[2018-05-06] MEDS: Ferrous Sulfate 325 MG Tab PO SCH (08:42)
[2018-05-06] MEDS: Magnesium Oxide 400 MG Tab PO SCH (08:42)
[2018-05-06] MEDS: Saccharomyces Boulardii (Probiotic) 250 MG Cap PO SCH (08:42)
[2018-05-06] MEDS: Famotidine 20 MG Tab PO SCH (08:42)
[2018-05-06] MEDS: Cholecalciferol (Vitamin D3) 1,000 Unit Tab PO SCH (08:42)
[2018-05-06] MEDS: Doxycycline 100 MG in Sodium Chloride 0.9% 100 ML IV SCH (08:45)
--- NOTE | 2018-05-06 10:34 | CR ---
Chest: Frontal view of the chest was obtained. Comparison: Prior chest x-ray of 05/03/18 Stable scarring is seen within the left lung base. Lungs otherwise are clear. Heart size and mediastinum are normal. Bony structures are grossly intact. Impression: 1. Nothing acute is seen on chest x-ray. Diagnostic code #2
--- NOTE | 2018-05-06 11:20 | PCM.DCSUM1 ---
Discharge Summary - Hospital Course Free Text/Narrative:: 42 year old male presented with hyponatremia suspected of having seizures required prolonged hospitalization for multiple medical needs. Electrolytes were corrected fairly efficiently however, he continued to have abdominal pain which gradually subsided. He has a peristomal hernia and was assessed by the general surgeon litigation services manager. He is expected to follow up with his previous provider , Dr Lomax, a general surgeon in [place]. He required treatment for pneumonia and was discharged on Doxycycline. In addition, he will require closer monitoring of his electrolytes. He was seen by multiple consultants including a hazardous materials driver. The PCP follow up appt is 05/20/18. HPI Initial Comments: This is a 42 yo white male with past medical hx/o PVD, Constipation, Scoliosis, Seizure, GERD, Anemia, Congenital Hydrocephalus, Mild Intellectual Disability, Borderline Lycopenia, Pseudolymphoma, Anxiety and Depression and Hx/o Suicidal Ideation who comes in for evaluation of nausea and vomiting. He was initially seen earlier in ED for hyponatremia. He received intravenous hydration and thermotabs but it appears he did not improve much. Patient has an ileostomy 2/2 SBO back May of last year. His CT scan report did not show an acute small bowel obstruction. After discharge from ED earlier today, he had another episode of emesis and vomited at the kitchen sink. He then went to bed and thought he was going to sleep. However per family, he got up and later was found on the floor vomiting again. He was also incontinent of urine. His mother thinks he may have had a seizure given his previous hx/o it in the past. Patient was too weak so his parents let him stay on the floor. And while laying on the floor, appeared cold , they covered him with blanket until ambulance came to transport him to the hospital. His initial work up in ED shows a CBC remarkable for RBC of 4.43, Hgb of 12.5, Hct of 35.4, Platelet of 126, Neutrophils of 86.7%, and Lymphocytes of 4.6%. His Chemistry is significant for Na of 121, Cl of 88, BS of 119, Ca of 8.2, Total Bilirubin of 1.3, and CK of 813. He is negative for influenza screening. His head CT scan report reads small scalp hematoma posteriorly. No acute intracranial abnormality. His chest x-ray shows atelectasis within both lung bases. Patient is primarily being admitted for Hyponatremia with Probable Seizures. He is full code. Diagnosis: Stroke: No - Discharge Data Discharge Date: 05/06/18 Discharge Disposition: Home, Self-Care 01 Condition: Good - Patient Summary/Data Consults: Consultations 04/28/18 11:58 Consult to Case Management/Assistant Administrator [CONS] Routine Consult to Spiritual Care [CONS] Routine OT Evaluation and Treatment [CONS] Routine PT Evaluation and Treatment [CONS] Routine 04/29/18 08:15 Consult to Dietary [Consult to C Iron Worker] [CONS] Routine 05/03/18 13:13 Consult to Physician [CONS] Routine - Patient Instructions Diet: Usual Diet as Tolerated Activity: As Tolerated Driving: Do Not Drive Showering/Bathing: May Shower Notify Provider of: Fever, Increased Pain, Nausea and/or Vomiting - Discharge Plan *PRESCRIPTION DRUG MONITORING PROGRAM REVIEWED*: Not Applicable *COPY OF PRESCRIPTION DRUG MONITORING REPORT IN PATIENT KECIA: Not Applicable Prescriptions/Med Rec: Doxycycline [Vibramycin] 100 mg IV Q12HR #10 vial Doxycycline [Vibramycin] 100 mg PO BID #10 cap Famotidine [Pepcid] 20 mg PO BID #60 tablet Magnesium Oxide 800 mg PO DAILY #14 tablet Home Medications: Home Meds L.acidoph,Paracasei, B.lactis [Probiotic] 1 cap PO DAILY 04/14/17 [History] PARoxetine HCl [Paxil] 20 mg PO DAILY 04/14/17 [History] Cholecalciferol (Vitamin D3) [Vitamin D3] 1,000 unit PO DAILY 05/10/17 [History] Ferrous Gluconate [Iron] 236 mg PO ACBREAKFAST 03/26/18 [History] Omeprazole 20 mg PO DAILY 03/26/18 [History] Ondansetron [Zofran ODT] 4 mg PO Q6H PRN #20 tab.dis 04/27/18 [Rx] Sodium Chloride/KCl [Thermotabs] 1 each PO TID #15 tab 04/27/18 [Rx] Doxycycline [Vibramycin] 100 mg IV Q12HR #10 vial 05/06/18 [Rx] Doxycycline [Vibramycin] 100 mg PO BID #10 cap 05/06/18 [Rx] Famotidine [Pepcid] 20 mg PO BID #60 tablet 05/06/18 [Rx] Magnesium Oxide 800 mg PO DAILY #14 tablet 05/06/18 [Rx] Oxygen Therapy Mode: Room Air Patient Handouts: Viral Gastroenteritis, Adult, Abdominal Pain, Adult, Easy-to- Read Referrals: Gerald Lomax MD [Ordering Only Provider] - (Please make a follow-up with Dr. Lomax in [place] for a peristomal hernia for possible repair.) Maria Luz Brown, BANDER AND CELLOPHANER MACHINE HELPER [Primary Care Provider] - 05/20/18 10:30 am - Discharge Summary/Plan Comment DC Time >30 min.: No Discharge Summary/Plan Comment: Assessment/Plan: Acute: Encephalopathy - Suspect 2/2 Toxic/Metabolic +/- post ictal state - Heat CT scan shows no acute intra-cranial abnormality but not posterior scalp hematoma - He is easily arousable and open his eyes; unlikely encephalitis or meningitis at this point - Aspiration Precaution Sepsis from Gastroenteritis w/ Possible Ileus; improved, will start clear liquids - WBC 3.47 yesterday; now 5.05 - Fever with 38.3C - Hypotensive with documented BPs of 90/29 mmHg and 104/57 mmHg - Influenza screening negative - LA is 1.1 - CXR shows bibasilar atelectasis - UA unable to obtain; not cooperative - Blood culture and RVP - Repeat CBC and ordered Procalcitonin, ESR and CRP - IV Zosyn/Vancomycin and Levaquin for pharmacy to dose (has a hx/o Lycopenia which put him at increased risk for infection) Gastroenteritis - He has been vomiting numerous times - Ileostomy shows liquid stools - Fecal Cx/Sx plus C. Diff test - IV hydration and PRN anti-emesis Ileus S/p Hx/o SBO with Ileostomy - He has not had much gas in his ileostomy bag (flat) - Greenish colored liquid fecal matter - Ambulate and prokinetic agent Probable Seizure-->EEG today - Evidenced by posterior scalp hematoma on head CT scan - CK is 813 - He carries a hx/o Seizure Disorder and Hydrocephalus Congenital - Risk factor: Hyponatremia w/ a sodium level of 118-121 - Low sodium level known to cause seizure and in the setting of infection the threshold is lower - Unable to take oral salt tablets so we switched to 3% Hypertonic Solution with slow infusion (pharmacy to dose) - PRN Ativan for abortive seizure - Seizure Precautions - Offered EEG but unlikely he will cooperate with the procedure Hyponatremia, stable - Na 118--> 121-->139 - He is on SSRI a known drug that could cause hyponatremia; will hold it for now - Likely 2/2 GI loss and SSRI - IVF fluids and 3% Hypertonic Saline slow infusion - Daily labs PNA -Bilateral PNA; change to doxycycline, DC on oral 05/06/18/zosyn. Increase probiotic, 500 mg daily. Abdominal pain with bilateral hernias, as well as reported pain near stoma. Gen surg consult, see subjective section Peristomal hernia-->stable, OP eval with previous gen surg at [facility], Dr Lomax. Chronic: PVD Constipation Scoliosis Seizure Disorder Hx/o Congenital Hydrocephalus Intellectual Disability Anxiety Depression Pseudolymphoma Hx/o Lycopenia Plan: MSP w/ Tele Routine AM Labs Home Meds Aspiration/Seizure Precaution IS as directed IV ATBs re: PNA; Doxy at DC. IV fluids for hydration PT/OT when appropriate SW/CM for d/c planning Code status: DNR/DNI LOS>96 hours with slow response to PNA/fever. DC home 05/06/18 - General Info Functional Status: Reports: Pain Controlled, Tolerating Diet, Ambulating, Urinating - Review of Systems General: Reports: No Symptoms HEENT: Reports: No Symptoms Pulmonary: Reports: No Symptoms Cardiovascular: Reports: No Symptoms Gastrointestinal: Reports: No Symptoms Genitourinary: Reports: No Symptoms Musculoskeletal: Reports: No Symptoms Skin: Reports: No Symptoms Neurological: Reports: No Symptoms Psychiatric: Reports: No Symptoms - Patient Data Vitals - Most Recent: Last Vital Signs Temp 36.9 C 05/06/18 08:40 Pulse 101 H 05/06/18 08:40 Resp 16 05/06/18 08:40 BP 108/57 L 05/05/18 20:30 Pulse Ox 100 05/06/18 11:00 Weight - Most Recent: 83.96 kg I&O - Last 24 hours: Intake & Output 05/05/18 05/06/18 05/06/18 22:59 06:59 14:59 Intake Total 1400 300 380 Output Total 200 Balance 1200 300 380 ELÍAS Results - Last 24 hrs: Microbiology 05/03/18 23:20 Stool Culture - Preliminary Stool / Feces Amie Albicans Shiga Toxin I - Final NEGATIVE FOR SHIGA TOXIN 1 Shiga Toxin II - Final NEGATIVE FOR SHIGA TOXIN 2 04/28/18 15:03 Aerobic Blood Culture - Final Blood - Venous - Lab Draw NO GROWTH AFTER 7 DAYS Anaerobic Blood Culture - Final 04/28/18 14:50 Aerobic Blood Culture - Final Blood - Venous NO GROWTH AFTER 7 DAYS Anaerobic Blood Culture - Final NO GROWTH AFTER 7 DAYS 05/02/18 14:10 Aerobic Blood Culture - Preliminary Blood - Venous - Lab Draw NO GROWTH AFTER 3 DAYS Anaerobic Blood Culture - Preliminary NO GROWTH AFTER 3 DAYS 05/02/18 14:20 Aerobic Blood Culture - Preliminary Blood - Venous NO GROWTH AFTER 3 DAYS Anaerobic Blood Culture - Preliminary NO GROWTH AFTER 3 DAYS Med Orders - Current: Current Medications Acetaminophen (Tylenol) 650 mg PO Q4H PRN PRN Reason: Pain (Mild 1-3)/fever Last Admin: 05/05/18 18:14 Dose: 650 mg Acetaminophen (Tylenol) 650 mg RECTAL Q4H PRN PRN Reason: Pain (mild 1-3) Last Admin: 04/28/18 22:03 Dose: 650 mg Hydrocodone Bitart/Acetaminophen ([place] 325-5 Mg) 1 tab PO Q4H PRN PRN Reason: Pain (moderate 4-6) Albuterol/Ipratropium (Duoneb 3.0-0.5 Mg/3 Ml) 3 ml NEB Q4H PRN PRN Reason: Shortness Of Breath/wheezing Bisacodyl (Dulcolax) 5 mg PO DAILY PRN PRN Reason: Constipation Cholecalciferol (Vitamin D3) 1,000 units PO DAILY [facility] Last Admin: 05/06/18 08:42 Dose: 1,000 units Docusate Sodium (Colace) 100 mg PO BID PRN PRN Reason: Constipation Famotidine (Pepcid) 20 mg PO BID [facility] Last Admin: 05/06/18 08:42 Dose: 20 mg Ferrous Sulfate (Ferrous Sulfate) 325 mg PO ACBREAKFAST [facility] Last Admin: 05/06/18 08:42 Dose: 325 mg Hydralazine HCl (Apresoline) 20 mg IVPUSH Q4H PRN PRN Reason: Hypertension Hydromorphone HCl (Dilaudid) 0.25 mg IVPUSH Q2H PRN PRN Reason: Pain (severe 7-10) Doxycycline Hyclate 100 mg/ (Sodium Chloride) 100 mls @ 100 mls/hr IV Q12HR [facility] Last Admin: 05/06/18 08:45 Dose: 100 mls/hr Ibuprofen (Motrin) 600 mg PO Q6H PRN PRN Reason: Pain/Fever Last Admin: 05/04/18 16:13 Dose: 600 mg Lorazepam (Ativan) 2 mg IVPUSH Q4H PRN PRN Reason: Seizures Lorazepam (Ativan) 0.5 mg IV Q6H PRN PRN Reason: Anxiety Magnesium Oxide (Magnesium Oxide) 800 mg PO DAILY [facility] Last Admin: 05/06/18 08:42 Dose: 800 mg Metoprolol Tartrate (Lopressor) 5 mg IVPUSH Q4H PRN PRN Reason: Tachycardia Saccharomyces Boulardii (Florastor) 500 mg PO DAILY [facility] Last Admin: 05/06/18 08:42 Dose: 500 mg Senna/Docusate Sodium (Senna Plus) 1 tab PO BID PRN PRN Reason: Constipation Sodium Chloride (Saline Flush) 10 ml FLUSH ONETIME PRN PRN Reason: IV FLUSH Last Admin: 05/01/18 14:28 Dose: 10 ml Temazepam (Restoril) 7.5 mg PO BEDTIME PRN PRN Reason: Sleep Last Admin: 05/05/18 21:22 Dose: 7.5 mg Discontinued Medications Famotidine (Pepcid) 20 mg IVPUSH BID [facility] Stop: 05/01/18 21:01 Last Admin: 04/30/18 08:41 Dose: 20 mg Sodium Chloride (Normal Saline) 1,000 mls @ 999 mls/hr IV ONETIME ONE Stop: 04/28/18 07:45 Last Admin: 04/28/18 06:45 Dose: 999 mls/hr Sodium Chloride (Normal Saline) 1,000 mls @ 150 mls/hr IV ASDIRECTED [facility] Last Admin: 04/28/18 09:38 Dose: 150 mls/hr Sodium Chloride (Sodium Chloride 3%) 250 mls @ 7.5 mls/hr IV ONETIME ONE Stop: 04/29/18 23:04 Last Admin: 04/28/18 14:46 Dose: 7.5 mls/hr Piperacillin Sod/Tazobactam (Sod 4.5 gm/ Sodium Chloride) 100 mls @ 200 mls/hr IV ONETIME ONE Stop: 04/28/18 23:14 Last Admin: 04/28/18 23:51 Dose: 200 mls/hr Vancomycin HCl 1 gm/Vancomycin HCl 250 mg/ Sodium Chloride 500 mls @ 333.025 mls/hr IV Q8H [facility] Stop: 04/29/18 21:00 Last Admin: 04/29/18 18:08 Dose: 333.025 mls/hr Levofloxacin/Dextrose 500 mg/ (Premix) 100 mls @ 100 mls/hr IV DAILY@2000 [facility] Last Admin: 04/30/18 20:10 Dose: 100 mls/hr Piperacillin Sod/Tazobactam (Sod 4.5 gm/ Sodium Chloride) 100 mls @ 25 mls/hr IV Q8H [facility] Last Admin: 04/30/18 04:09 Dose: 25 mls/hr Potassium Chloride/Sodium Chloride (Normal Saline With 20 Meq Kcl) 1,000 mls @ 75 mls/hr IV ASDIRECTED [facility] Last Admin: 05/01/18 03:28 Dose: 75 mls/hr Vancomycin HCl 1 gm/Vancomycin HCl 250 mg/ Sodium Chloride 250 mls @ 166.667 mls/hr IV Q8H [facility] Last Admin: 04/30/18 11:26 Dose: Not Given Magnesium Sulfate 2 gm/ Premix 50 mls @ 25 mls/hr IV ONETIME ONE Stop: 04/30/18 13:02 Last Admin: 04/30/18 11:35 Dose: 25 mls/hr Magnesium Sulfate 4 gm/ Premix 50 mls @ 12.5 mls/hr IV ONETIME ONE Stop: 05/01/18 14:39 Last Admin: 05/01/18 11:52 Dose: 12.5 mls/hr Sodium Chloride (Normal Saline) 500 mls @ 100 mls/hr IV ONETIME ONE Stop: 05/01/18 17:44 Last Admin: 05/01/18 14:23 Dose: Not Given Levofloxacin/Dextrose 750 mg/ (Premix) 150 mls @ 100 mls/hr IV Q24H [facility] Last Admin: 05/02/18 20:29 Dose: 100 mls/hr Piperacillin Sod/Tazobactam (Sod 4.5 gm/ Sodium Chloride) 100 mls @ 200 mls/hr IV Q8H [facility] Piperacillin Sod/Tazobactam (Sod 4.5 gm/ Sodium Chloride) 100 mls @ 25 mls/hr IV Q8H [facility] Last Admin: 05/01/18 16:33 Dose: Not Given Piperacillin Sod/Tazobactam (Sod 4.5 gm/ Sodium Chloride) 100 mls @ 200 mls/hr IV ONETIME ONE Stop: 05/01/18 16:29 Last Admin: 05/01/18 16:13 Dose: 200 mls/hr Piperacillin Sod/Tazobactam (Sod 4.5 gm/ Sodium Chloride) 100 mls @ 25 mls/hr IV Q8H [facility] Stop: 05/05/18 12:00 Last Admin: 05/05/18 09:39 Dose: 25 mls/hr Sodium Chloride (Normal Saline) 1,000 mls @ 150 mls/hr IV ASDIRECTED JOSE Stop: 05/02/18 13:00 Sodium Chloride (Normal Saline) 1,000 mls @ 100 mls/hr IV ASDIRECTED [facility] Last Admin: 05/02/18 18:35 Dose: 100 mls/hr Metronidazole 500 mg/ Premix 100 mls @ 100 mls/hr IV Q8H [facility] Iopamidol (Isovue-370 (76%)) 100 ml IV ONETIME ONE Stop: 05/01/18 13:50 Last Admin: 05/01/18 14:27 Dose: 100 ml Lorazepam (Ativan) 1 mg IVPUSH ONETIME ONE Stop: 05/03/18 13:43 Last Admin: 05/03/18 16:18 Dose: Not Given Lorazepam (Ativan) Confirm Administered Dose 2 mg .ROUTE .STK-MED ONE Stop: 05/03/18 13:47 Last Admin: 05/03/18 16:17 Dose: 1 mg Magnesium Oxide (Magnesium Oxide) 800 mg PO ONETIME ONE Stop: 04/29/18 14:01 Last Admin: 04/29/18 16:29 Dose: 800 mg Magnesium Oxide (Magnesium Oxide) 800 mg PO ONETIME ONE Stop: 04/29/18 16:31 Last Admin: 04/29/18 16:30 Dose: Not Given Magnesium Oxide (Magnesium Oxide) 800 mg PO ONETIME ONE Stop: 05/01/18 14:20 Last Admin: 05/01/18 14:56 Dose: 800 mg Magnesium Oxide (Magnesium Oxide) 400 mg PO BID [facility] Last Admin: 05/02/18 08:56 Dose: 400 mg Magnesium Sulfate (Pharmacy To Dose - Magnesium Replacement) 0 dose .XX ASDIRECTED PRN PRN Reason: RX TO WATCH MAG Metoclopramide HCl (Reglan) 5 mg IVPUSH Q6H [facility] Stop: 04/29/18 18:16 Last Admin: 04/29/18 05:46 Dose: 5 mg Miscellaneous Information (Remove Patch) 1 ea TRDERM ONETIME ONE Stop: 05/01/18 21:01 Last Admin: 05/01/18 20:10 Dose: 1 ea Modafinil (Provigil) 100 mg PO DAILY ONE Stop: 04/29/18 12:32 Non-Formulary Medication (Sodium Chloride/Kcl [Thermotabs]) 1 each PO TID [facility] Ondansetron HCl (Zofran) 4 mg IV Q6H PRN PRN Reason: Nausea/Vomiting Oral Electrolytes (Thermotabs) 1 each PO TID [facility] Pharmacy Consult (Consult To Pharmacy) 1 each .XX ASDIRECTED [facility] Potassium Chloride (Pharmacy To Dose - Potassium Replacement) 0 dose .XX ASDIRECTED PRN PRN Reason: RX TO WATCH K Potassium Chloride (Klor-Con M20) 40 meq PO Q4H [facility] Stop: 04/28/18 17:01 Last Admin: 04/28/18 16:26 Dose: Not Given Saccharomyces Boulardii (Florastor) 250 mg PO DAILY [facility] Last Admin: 05/03/18 09:01 Dose: 250 mg Scopolamine (Transderm-Scop) 1.5 mg TRDERM ONETIME ONE Stop: 04/28/18 23:09 Last Admin: 04/28/18 23:52 Dose: 1.5 mg Vancomycin HCl (Pharmacy To Dose - Vancomycin) 0 dose .XX ASDIRECTED PRN PRN Reason: RX TO DOSE VANCO - Exam Quality Assessment: Reports: DVT Prophylaxis General: Reports: Alert, Oriented, Cooperative HEENT: Reports: Pupils Equal, Pupils Reactive, EOMI Neck: Reports: Trachea Midline, No JVD Lungs: Reports: Normal Respiratory Effort Cardiovascular: Reports: Regular Rate, Regular Rhythm GI/Abdominal Exam: Normal Bowel Sounds, Soft, Non-Tender, No Organomegaly, No Distention (Male) Exam: Deferred Rectal (Males) Exam: Deferred Back Exam: Reports: Normal Inspection Extremities: Normal Inspection, Non-Tender, Normal Capillary Refill Skin: Reports: Warm Neurological: Reports: No New Focal Deficit Psy/Mental Status: Reports: Alert, Normal Affect, Normal Mood
[2018-05-06] MEDS ORDERED: Doxycycline 100 MG Cap PO SCH (21:00)
== END 2018-05-06 12:45 | disposition home or self-care (01) | DRG 871 ==
LOC: JD.ED 06:14 → JD.MS 10:36
PROVIDERS: ADMIT Internal Medicine; ATTEND Internal Medicine
DX: A41.9 Sepsis, unspecified organism (principal); G92 Toxic encephalopathy; J18.9 Pneumonia, unspecified organism; E87.1 Hypo-osmolality and hyponatremia; K56.7 Ileus, unspecified; K94.19 Other complications of enterostomy; K52.9 Noninfective gastroenteritis and colitis, unspecified; T43.225A Adverse effect of selective serotonin reuptake inhibitors, initial encounter; Q03.9 Congenital hydrocephalus, unspecified; R56.9 Unspecified convulsions; K59.09 Other constipation; Z93.2 Ileostomy status; M41.9 Scoliosis, unspecified; Z91.048 Other nonmedicinal substance allergy status; I73.9 Peripheral vascular disease, unspecified; R10.84 Generalized abdominal pain; R32 Unspecified urinary incontinence; R11.2 Nausea with vomiting, unspecified; F41.9 Anxiety disorder, unspecified; F32.9 Major depressive disorder, single episode, unspecified; F70 Mild intellectual disabilities; D64.9 Anemia, unspecified; S00.03XA Contusion of scalp, initial encounter; W18.30XA Fall on same level, unspecified, initial encounter; Z66 Do not resuscitate; Z86.14 Personal history of Methicillin resistant Staphylococcus aureus infection; Z91.018 Allergy to other foods; Z79.899 Other long term (current) drug therapy
CPT/HCPCS: 36415; 70450; 80053; 81001; 85025; 96360; 96361; 99285; J7040 ×2; 71045; 71045-26; 71046; 71046-26; 71260; 71260-26; 74177; 74177-26; 80048; 80202; 82550; 83605; 83735; 84145; 85652; 86140; 87040; 87046; 87070; 87427; 87486; 87493; 87581; 87632; 87641; 87798; 87804; 89055; 95816; 97161-GP; 97166-GO; 97530-GO; 99284; A9270-GY; J1956; J2060; J2543; J2765; J3370; J3475; J3480; J3490; J7030; J7050; Q9967

== ENCOUNTER 2018-06-14 17:48 | Emergency (ER) | payer MEDICARE, MEDICAID ==
--- NOTE | 2018-06-14 18:57 | EDM.PDOC ---
ED HPI GENERAL MEDICAL PROBLEM - General Chief Complaint: Gastrointestinal Problem Stated Complaint: STOMA ISSUES Time Seen by Provider: 06/14/18 18:54 Source of Information: Reports: Patient, RN Notes Reviewed History Limitations: Reports: No Limitations - History of Present Illness INITIAL COMMENTS - FREE TEXT/NARRATIVE: Patient is a 42-year-old male who presents to the ED for the evaluation of stoma issues. The patient is an [facility] client, his rail bender is present with him at time of evaluation. The patient had an ileostomy placed in the right lower abdomen 1.5 years ago. The worker noted that the stoma was sticking out somewhat yesterday, however when he lay down it reduced back into its opening. The patient states he was working today again and the stoma popped outs into his ileostomy sack right roughly 4-5 inches. The patient complained of this feeling painful at this time. The patient denies any fevers or chills at this time, but the staff member seems to think that there is been increased production in his ileostomy bag. The rail bender also states that he has other hernias as well, one where she pointed to his umbilicus, and one just to the lateral right side of his ileostomy site. Abdomen Pain Score (Numeric/FACES): 4 - Related Data Allergies Allergy/AdvReac Type Severity Reaction Status Date / Time aspartame Allergy Cannot Verified 06/14/18 18:15 Remember raspberry Allergy Cannot Verified 06/14/18 18:15 Remember red dye Allergy Cannot Verified 06/14/18 18:15 Remember chloral hydrate AdvReac Hyperactivi Verified 06/14/18 18:15 ty Home Meds: Home Meds L.acidoph,Paracasei, B.lactis [Probiotic] 1 cap PO DAILY 04/14/17 [History] Cholecalciferol (Vitamin D3) [Vitamin D3] 1,000 unit PO DAILY 05/10/17 [History] Ferrous Gluconate [Iron] 236 mg PO ACBREAKFAST 03/26/18 [History] Omeprazole 20 mg PO DAILY 03/26/18 [History] Famotidine [Pepcid] 20 mg PO BID #60 tablet 05/06/18 [Rx] FLUoxetine HCl [Prozac] 40 mg PO DAILY 06/14/18 [History] Magnesium Oxide 400 mg PO DAILY 06/14/18 [History] Past Medical History HEENT History: Reports: Other (See Below) Other HEENT History: pt has had tubes in his ears bilaterally Cardiovascular History: Reports: PVD, Other (See Below) Other Cardiovascular History: veins stripped by Dr. Fitch Gastrointestinal History: Reports: Bowel Obstruction, Chronic Constipation, GERD Genitourinary History: Reports: None Musculoskeletal History: Reports: Other (See Below) Other Musculoskeletal History: scoliosis Neurological History: Reports: Seizure, Other (See Below) Other Neuro History: hydrocephalus congenital Psychiatric History: Reports: Anxiety, Depression, Suicidal Ideation Other Psychiatric History: mild MR Hematologic History: Reports: Other (See Below) Other Hematologic History: borderline lycopenia? Oncologic (Cancer) History: Reports: Other (See Below) Other Oncologic History: pseudolymphoma - Infectious Disease History Infectious Disease History: Reports: MRSA - Past Surgical History Head Surgeries/Procedures: Reports: None HEENT Surgical History: Reports: Myringotomy w Tube(s) GI Surgical History: Reports: Colostomy, Hernia, Abdominal, Small Bowel Other GI Surgeries/Procedures: Abd. surgerys May 2017 Social & Family History - Family History Family Medical History: Noncontributory HEENT: Reports: None - Tobacco Use Smoking Status *Q: Never Smoker Second Hand Smoke Exposure: No - Caffeine Use Caffeine Use: Reports: None - Recreational Drug Use Recreational Drug Use: No - Living Situation & Occupation Living situation: Reports: Single, Alone, Other ([employer] staff 3X/day) Occupation: Disabled ED ROS GENERAL - Review of Systems Review Of Systems: See Below Constitutional: Reports: No Symptoms HEENT: Reports: No Symptoms Respiratory: Reports: No Symptoms Cardiovascular: Reports: No Symptoms Endocrine: Reports: No Symptoms GI/Abdominal: Reports: Abdominal Pain (around site of ileostomy), Other (stoma issues) : Reports: No Symptoms Musculoskeletal: Reports: No Symptoms Skin: Reports: No Symptoms Neurological: Reports: No Symptoms Psychiatric: Reports: No Symptoms Hematologic/Lymphatic: Reports: No Symptoms Immunologic: Reports: No Symptoms ED EXAM, GI/ABD - Physical Exam Exam: See Below Exam Limited By: No Limitations General Appearance: Alert, WD/WN, No Apparent Distress Eyes: Bilateral: Normal Appearance Respiratory/Chest: No Respiratory Distress, Lungs Clear, Normal Breath Sounds, No Accessory Muscle Use, Chest Non-Tender Cardiovascular: Normal Peripheral Pulses, Regular Rate, Rhythm, No Murmur GI/Abdominal Exam: Normal Bowel Sounds, Soft, No Mass, Tender (around the ileostomy site, no redness noted.), Other (Prolapsed stoma, roughly 4-5 inches his prolapsed out.) Extremities: Normal Inspection, Normal Capillary Refill Neurological: Alert, Oriented, Normal Cognition, No Motor/Sensory Deficits Psychiatric: Normal Affect, Normal Mood, Anxious Skin Exam: Warm, Dry, Intact, Normal Color, No Rash Course - Vital Signs Last Recorded V/S: Last Vital Signs Temp 98.4 F 06/14/18 18:19 Pulse 81 06/14/18 18:19 Resp 13 06/14/18 18:19 BP 119/67 06/14/18 18:19 Pulse Ox 100 06/14/18 18:19 - Orders/Labs/Meds Orders: Active Orders 24 hr Category Date Time Status Peripheral IV Care [RC] . DIRECTED Care 06/14/18 19:20 Inactive Meds: Medications Discontinued Medications Generic Name Dose Route Start Last Admin Trade Name Freq PRN Reason Stop Dose Admin Hydromorphone HCl 0.5 mg 06/14/18 19:19 06/14/18 19:43 Dilaudid IVPUSH 06/14/18 19:20 Not Given ONETIME ONE Hydromorphone HCl 0.5 mg 06/14/18 19:35 06/14/18 19:40 Dilaudid IM 06/14/18 19:36 0.5 mg ONETIME ONE Administration Sodium Chloride 10 ml 06/14/18 19:19 Saline Flush FLUSH ASDIRECTED PRN Keep Vein Open - Re-Assessments/Exams Free Text/Narrative Re-Assessment/Exam: 06/14/18 19:27 Patient presents to the ED for the evaluation of stoma issues. I did discuss the patient's case with Dr. Newberry, he suggests trying to reduce the prolapsed stoma in the ED just once, to see if it will stay in place, however if it will not stay in place he recommends that general surgery come to evaluate the patient for possible repair. I have ordered 0.5 mg IV Dilaudid to be given for pain relief before we try to reduce the prolapsed stoma. 06/14/18 19:58 The RN informs me that the patient was not able to sit still enough for her to do an IV, so I did change the order to IM 0.5 mg Dilaudid. 06/14/18 20:36 The patient's stoma was able to be reduced with very minimal manipulation, this was done with ONDINA Carty present. The site of attachment is intact, there is no sign of any sort of strangulation or wounds. The mother present in the room, and the to staff workers were wondering why the stoma was sticking out as far as it was., I will provide them with general information from up-to-date, regarding management of prolapsed stomas. Departure - Departure Time of Disposition: 20:42 Disposition: Home, Self-Care 01 Condition: Fair Clinical Impression: Intestinal stoma prolapse - Discharge Information *PRESCRIPTION DRUG MONITORING PROGRAM REVIEWED*: No *COPY OF PRESCRIPTION DRUG MONITORING REPORT IN PATIENT KECIA: No Referrals: Maria Luz Brown NP [Primary Care Provider] - Forms: ED Department Discharge Additional Instructions: Sami has been evaluated in the ED today for his prolapsed stoma. Here is some general information regarding prolapsed stomas from [facility], which is a clinical database of medical information: Stomal prolapse Prolapse is the telescoping of the intestine out from the stoma and can occur with any type of stoma. Prolapse can make appliance placement and adherence difficult, and prolonged prolapse causes intestinal edema, and if significant, can lead to intestinal incarceration or strangulation. The incidence ranges from 7 to 26 percent, with the highest rates associated with a loop transverse colostomy and end descending colostomies Risk factors for prolapse may include a large abdominal trephine, increased intra-abdominal pressure, and a redundant loop of bowel proximal to the stoma. Alternative fixation techniques during ostomy construction have been proposed to prevent prolapse. However, there are no data to support these approaches. Uncomplicated prolapse can be managed conservatively with cool compresses and/ or application of an osmotic agent (eg, table sugar or honey) to reduce edema, followed by manual reduction of the prolapse and application of a binder with a prolapse over-belt to keep the bowel reduced into the abdomen, or by pouching modifications to accommodate the prolapsed bowel when reduction cannot be established or maintained. Manual reduction should be initiated at the very tip of the prolapse (beehive) or lumen, and then gentle, slow invagination should proceed. In this way, the prolapsed bowel will intussuscept back into the abdomen. Complicated prolapse or prolapse producing ischemic changes or severe mucosal irritation and bleeding usually requires surgical intervention. Local revision of the prolapse is accomplished by performing a full-thickness resection of the prolapsed intestinal segment with construction of the stoma at the original site. In the event of a further recurrence, additional bowel resection and relocation of the stoma may be necessary. It is safe to try these conservative measures to reduce the stoma back into position. As long as he is making bowel contents, there is no emergent need to bring him to ER for reduction. Recommend that you speak with his surgeon at his appointment next sunday regarding further management. Please return to the ED if his symptoms change or worsen. - My Orders Last 24 Hours: My Active Orders 06/14/18 19:20 Peripheral IV Care [RC] . DIRECTED - Assessment/Plan Last 24 Hours: My Active Orders 06/14/18 19:20 Peripheral IV Care [RC] . DIRECTED
[2018-06-14] MEDS ORDERED: Sodium Chloride 0.9% 10 ML Syringe FLUSH PRN (19:19)
[2018-06-14] MEDS ORDERED: HYDROmorphone 1 MG/ML Syringe IVPUSH ONE (19:19)
[2018-06-14] MEDS ORDERED: HYDROmorphone 0.5 MG/0.5 ML Syringe IM ONE (19:35)
== END 2018-06-14 21:05 | disposition home or self-care (01) ==
LOC: JD.ED 17:48
DX: K94.19 Other complications of enterostomy (principal); K21.9 Gastro-esophageal reflux disease without esophagitis; F41.9 Anxiety disorder, unspecified; F32.9 Major depressive disorder, single episode, unspecified; Z79.899 Other long term (current) drug therapy; Z88.8 Allergy status to other drugs, medicaments and biological substances; Z91.018 Allergy to other foods; Z91.041 Radiographic dye allergy status
CPT/HCPCS: 96372; 99282; J1170; 99283

== ENCOUNTER 2018-06-17 14:05 | Emergency (ER) | payer MEDICARE, MEDICAID ==
--- NOTE | 2018-06-17 14:53 | EDM.PDOC ---
ED HPI GENERAL MEDICAL PROBLEM - General Chief Complaint: Abdominal Pain Stated Complaint: ABDOMINAL ISSUES Time Seen by Provider: 06/17/18 14:25 Source of Information: Reports: Patient, RN Notes Reviewed History Limitations: Reports: No Limitations - History of Present Illness INITIAL COMMENTS - FREE TEXT/NARRATIVE: Patient is a 42-year-old male who presents to the ED with his mother for evaluation of stoma issues. The patient was here on Sunday night, due to the same affliction. He states that some of his abdominal contents are in the bag. This is not painful. This is sticking out around 4-5 inches again today. The patient states that he does see his surgeon, Dr. Lomax, on Sunday. The mother states that they tried to take him to the walk-in clinic to have his stoma reduced, however they would not do it. So the mother brought him here to have it reduced again. - Related Data Allergies Allergy/AdvReac Type Severity Reaction Status Date / Time aspartame Allergy Cannot Verified 06/14/18 18:15 Remember raspberry Allergy Cannot Verified 06/14/18 18:15 Remember red dye Allergy Cannot Verified 06/14/18 18:15 Remember chloral hydrate AdvReac Hyperactivi Verified 06/14/18 18:15 ty Home Meds: Home Meds L.acidoph,Paracasei, B.lactis [Probiotic] 1 cap PO DAILY 04/14/17 [History] Cholecalciferol (Vitamin D3) [Vitamin D3] 1,000 unit PO DAILY 05/10/17 [History] Ferrous Gluconate [Iron] 236 mg PO ACBREAKFAST 03/26/18 [History] Omeprazole 20 mg PO DAILY 03/26/18 [History] Famotidine [Pepcid] 20 mg PO BID #60 tablet 05/06/18 [Rx] FLUoxetine HCl [Prozac] 40 mg PO DAILY 06/14/18 [History] Magnesium Oxide 400 mg PO DAILY 06/14/18 [History] Past Medical History HEENT History: Reports: Other (See Below) Other HEENT History: pt has had tubes in his ears bilaterally Cardiovascular History: Reports: PVD, Other (See Below) Other Cardiovascular History: veins stripped by Dr. Fitch Gastrointestinal History: Reports: Bowel Obstruction, Chronic Constipation, GERD Genitourinary History: Reports: None Musculoskeletal History: Reports: Other (See Below) Other Musculoskeletal History: scoliosis Neurological History: Reports: Seizure, Other (See Below) Other Neuro History: hydrocephalus congenital Psychiatric History: Reports: Anxiety, Depression, Suicidal Ideation Other Psychiatric History: mild MR Hematologic History: Reports: Other (See Below) Other Hematologic History: borderline lycopenia? Oncologic (Cancer) History: Reports: Other (See Below) Other Oncologic History: pseudolymphoma - Infectious Disease History Infectious Disease History: Reports: MRSA - Past Surgical History Head Surgeries/Procedures: Reports: None HEENT Surgical History: Reports: Myringotomy w Tube(s) GI Surgical History: Reports: Colostomy, Hernia, Abdominal, Small Bowel Other GI Surgeries/Procedures: Abd. surgerys May 2017 Social & Family History - Family History Family Medical History: Noncontributory HEENT: Reports: None - Tobacco Use Smoking Status *Q: Never Smoker Second Hand Smoke Exposure: No - Caffeine Use Caffeine Use: Reports: None - Recreational Drug Use Recreational Drug Use: No - Living Situation & Occupation Living situation: Reports: Single, Alone, Other ([employer] staff 3X/day) Occupation: Disabled ED ROS GENERAL - Review of Systems Review Of Systems: See Below Constitutional: Reports: No Symptoms HEENT: Reports: No Symptoms Respiratory: Reports: No Symptoms Cardiovascular: Reports: No Symptoms Endocrine: Reports: No Symptoms GI/Abdominal: Reports: Other (Stoma issues) : Reports: No Symptoms Musculoskeletal: Reports: No Symptoms Skin: Reports: No Symptoms Neurological: Reports: No Symptoms Psychiatric: Reports: No Symptoms Hematologic/Lymphatic: Reports: No Symptoms Immunologic: Reports: No Symptoms ED EXAM, GI/ABD - Physical Exam Exam: See Below Exam Limited By: No Limitations General Appearance: Alert, WD/WN, No Apparent Distress Respiratory/Chest: No Respiratory Distress, Lungs Clear, Normal Breath Sounds, No Accessory Muscle Use, Chest Non-Tender Cardiovascular: Normal Peripheral Pulses, Regular Rate, Rhythm, No Murmur GI/Abdominal Exam: Normal Bowel Sounds, Soft, Non-Tender, No Distention, No Mass , Other (Stoma present noted in right lower quadrant, with protrusion of abdominal contents through the stoma. There is fecal matter/stool in his bag.) Extremities: Normal Inspection, Normal Capillary Refill Neurological: Alert, Normal Cognition, No Motor/Sensory Deficits Psychiatric: Normal Affect, Normal Mood Skin Exam: Warm, Dry, Intact, Normal Color, No Rash Course - Vital Signs Last Recorded V/S: Last Vital Signs Temp 98.8 F 06/17/18 14:14 Pulse 90 06/17/18 14:14 Resp 20 06/17/18 14:14 BP 132/71 06/17/18 14:14 Pulse Ox 99 06/17/18 14:14 - Re-Assessments/Exams Free Text/Narrative Re-Assessment/Exam: 06/17/18 14:52 Patient presents to the ED for the evaluation of stoma issues. I will reduce the patient's stoma again today and have him follow-up with Dr. Lomax on Sunday for further management of this issue, I have again reassured the mom that this is a common occurrence with his type of stoma. Departure - Departure Time of Disposition: 14:53 Disposition: Home, Self-Care 01 Condition: Fair Clinical Impression: Ileostomy prolapse - Discharge Information *PRESCRIPTION DRUG MONITORING PROGRAM REVIEWED*: No *COPY OF PRESCRIPTION DRUG MONITORING REPORT IN PATIENT KECIA: No Instructions: Ileostomy Home Guide Referrals: Maria Luz Brown, [employer] [Primary Care Provider] - Forms: ED Department Discharge Additional Instructions: Sami has been evaluated in the ED today for his prolapsed stoma. This has been reduced, and is in good placement again. Please follow up with his surgeon, Dr. Lomax on Sunday for management of his hernias and further management of his prolapsed stoma. Again this is a common occurrence with some ileostomies, any sort of increased intra-abdominal pressure may prolapse this back out into his bag. It is okay to try to reduce this at home if he is not having any pain. It is also okay to leave the contents alone if he is still making stool. The only time it would be considered an emergency is if he were to stop making stool, or it would be extremely painful. Please return to the ED if his symptoms should change or worsen.
== END 2018-06-17 15:15 | disposition home or self-care (01) ==
LOC: JD.ED 14:05
DX: K94.19 Other complications of enterostomy (principal); F41.9 Anxiety disorder, unspecified; F32.9 Major depressive disorder, single episode, unspecified; Z88.8 Allergy status to other drugs, medicaments and biological substances; Z91.018 Allergy to other foods; Z91.09 Other allergy status, other than to drugs and biological substances; Z79.899 Other long term (current) drug therapy
CPT/HCPCS: 99281; 99282

== ENCOUNTER 2018-07-22 14:13 | Emergency (ER) | payer MEDICARE, MEDICAID ==
[2018-07-22] MEDS ORDERED: Sodium Chloride 0.9% 10 ML Syringe FLUSH PRN (15:07)
[2018-07-22] MEDS: LORazepam 1 MG Tab PO ONE ×2 (15:15→16:27)
--- NOTE | 2018-07-22 16:38 | EDM.PDOC ---
ED HPI GENERAL MEDICAL PROBLEM - General Chief Complaint: Gastrointestinal Problem Stated Complaint: STOMA IS FALLING OUT Time Seen by Provider: 07/22/18 14:40 Source of Information: Reports: Patient History Limitations: Reports: No Limitations - History of Present Illness INITIAL COMMENTS - FREE TEXT/NARRATIVE: 42-year-old male is brought in by his able case finisher for a prolapsed stoma. Patient has been having problems with the stoma for the last month. He has seen Dr. Pleitez, surgeon in [place]. 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 For able they state that Dr. Pleitez requested CT while the stoma is protruding. He reports a tried sugar on the stoma and it has reduced somewhat but is still continues to protrude. Patient is reporting tenderness to the area. They also reports some blood earlier. - Related Data Allergies Allergy/AdvReac Type Severity Reaction Status Date / Time aspartame Allergy Cannot Verified 06/14/18 18:15 Remember raspberry Allergy Cannot Verified 06/14/18 18:15 Remember red dye Allergy Cannot Verified 06/14/18 18:15 Remember chloral hydrate AdvReac Hyperactivi Verified 06/14/18 18:15 ty Home Meds: Home Meds L.acidoph,Paracasei, B.lactis [Probiotic] 1 cap PO DAILY 04/14/17 [History] Cholecalciferol (Vitamin D3) [Vitamin D3] 1,000 unit PO DAILY 05/10/17 [History] Ferrous Gluconate [Iron] 236 mg PO ACBREAKFAST 03/26/18 [History] Omeprazole 20 mg PO DAILY 03/26/18 [History] Famotidine [Pepcid] 20 mg PO BID #60 tablet 05/06/18 [Rx] FLUoxetine HCl [Prozac] 40 mg PO DAILY 06/14/18 [History] Magnesium Oxide 400 mg PO DAILY 06/14/18 [History] Past Medical History HEENT History: Reports: Other (See Below) Other HEENT History: pt has had tubes in his ears bilaterally Cardiovascular History: Reports: PVD, Other (See Below) Other Cardiovascular History: veins stripped by Dr. Fitch Gastrointestinal History: Reports: Bowel Obstruction, Chronic Constipation, GERD Genitourinary History: Reports: None Musculoskeletal History: Reports: Other (See Below) Other Musculoskeletal History: scoliosis Neurological History: Reports: Seizure, Other (See Below) Other Neuro History: hydrocephalus congenital Psychiatric History: Reports: Anxiety, Depression, Suicidal Ideation Other Psychiatric History: mild MR Hematologic History: Reports: Other (See Below) Other Hematologic History: borderline lycopenia? Oncologic (Cancer) History: Reports: Other (See Below) Other Oncologic History: pseudolymphoma - Infectious Disease History Infectious Disease History: Reports: MRSA - Past Surgical History Head Surgeries/Procedures: Reports: None HEENT Surgical History: Reports: Myringotomy w Tube(s) GI Surgical History: Reports: Colostomy, Hernia, Abdominal, Small Bowel Other GI Surgeries/Procedures: Abd. surgerys May 2017 Social & Family History - Family History Family Medical History: Noncontributory HEENT: Reports: None - Tobacco Use Smoking Status *Q: Never Smoker - Caffeine Use Caffeine Use: Reports: None - Living Situation & Occupation Living situation: Reports: Single, Alone, Other ([employer] staff 3X/day) Occupation: Disabled ED ROS GENERAL - Review of Systems Review Of Systems: See Below GI/Abdominal: Reports: Other (pain to the prolapsed stoma, reports minor bleeding to the area) ED EXAM, GI/ABD - Physical Exam Exam: See Below Exam Limited By: No Limitations General Appearance: Alert, WD/WN, No Apparent Distress, Anxious Respiratory/Chest: No Respiratory Distress GI/Abdominal Exam: Other (erythematous, prolapsed stoma, prolapsed approimaltely 8 cm, stool in colonstomy back is gark green/black in color, no bright red blood appreciated; tenderness to palpation lateral to the stoma) Neurological: Alert, Oriented, Normal Cognition Psychiatric: Normal Affect, Normal Mood Skin Exam: Warm, Dry, Normal Color Course - Vital Signs Last Recorded V/S: Last Vital Signs Temp 98.3 F 07/22/18 14:19 Pulse 73 07/22/18 14:19 Resp 18 07/22/18 14:19 BP 130/79 07/22/18 14:19 Pulse Ox 100 07/22/18 14:19 - Orders/Labs/Meds Meds: Medications Discontinued Medications Generic Name Dose Route Start Last Admin Trade Name Freq PRN Reason Stop Dose Admin Lorazepam 1 mg 07/22/18 15:06 07/22/18 15:15 Ativan PO 07/22/18 15:07 1 mg ONETIME ONE Administration Lorazepam 1 mg 07/22/18 15:52 07/22/18 16:27 Ativan PO 07/22/18 15:53 Not Given ONETIME ONE Sodium Chloride 10 ml 07/22/18 15:07 Saline Flush FLUSH ASDIRECTED PRN Keep Vein Open - Re-Assessments/Exams Free Text/Narrative Re-Assessment/Exam: 07/24/18 16:36 Patient was too anxious to get an IV and refused any labs and CT. I do not fill a noncontrast CT would be beneficial and I feel is be most beneficial with contrast. I did attempt to contact Dr. Pleitez and initially did not get reply therefore I contacted our surgeon who came to the ER and seen the patient. Please see her note for complete details. She was able to easily reduce the prolapsed stoma. Blythe that the irritation to it was likely from the manipulation of the sugar to the area. Dr. Pleitez to call back and did not feel we needed to obtain a CT today. He will see him in clinic for follow-up. Discharge instructions as documented. Departure - Departure Time of Disposition: 16:35 Disposition: Home, Self-Care 01 Condition: Good Clinical Impression: Intestinal stoma prolapse - Discharge Information *PRESCRIPTION DRUG MONITORING PROGRAM REVIEWED*: No *COPY OF PRESCRIPTION DRUG MONITORING REPORT IN PATIENT KECIA: No Referrals: Maria Luz Brown, [employer] [Primary Care Provider] - Forms: ED Department Discharge Additional Instructions: Follow-up with this week or next week. Please return to the ER should your symptoms change or worsen.
--- NOTE | 2018-07-22 17:35 | PCM.CONS ---
H&P History of Present Illness - General Date of Service: 07/22/18 Source of Information: Patient, Family, Other History Limitations: Reports: Other (developmental delay) - History of Present Illness Initial Comments - Free Text/Narative: The patient is a 42 y/o male who presents with stomal prolapse. He has an end- ileostomy that has had some prolapse in the past. Sugar usually works to reduce it, but this time the stoma did not reduce. It has been prolapsed for a day. There has been mild bloody discharge. No stool changes. He has several hernias on the abdomen, and was recently seen by his surgeon. - Related Data Allergies/Adverse Reactions: Allergies Allergy/AdvReac Type Severity Reaction Status Date / Time aspartame Allergy Cannot Verified 06/14/18 18:15 Remember raspberry Allergy Cannot Verified 06/14/18 18:15 Remember red dye Allergy Cannot Verified 06/14/18 18:15 Remember chloral hydrate AdvReac Hyperactivi Verified 06/14/18 18:15 ty Home Medications: Home Meds L.acidoph,Paracasei, B.lactis [Probiotic] 1 cap PO DAILY 04/14/17 [History] Cholecalciferol (Vitamin D3) [Vitamin D3] 1,000 unit PO DAILY 05/10/17 [History] Ferrous Gluconate [Iron] 236 mg PO ACBREAKFAST 03/26/18 [History] Omeprazole 20 mg PO DAILY 03/26/18 [History] Famotidine [Pepcid] 20 mg PO BID #60 tablet 05/06/18 [Rx] FLUoxetine HCl [Prozac] 40 mg PO DAILY 06/14/18 [History] Magnesium Oxide 400 mg PO DAILY 06/14/18 [History] Past Medical History HEENT History: Reports: Other (See Below) Other HEENT History: pt has had tubes in his ears bilaterally Cardiovascular History: Reports: PVD, Other (See Below) Other Cardiovascular History: veins stripped by Dr. Fitch Gastrointestinal History: Reports: Bowel Obstruction, Chronic Constipation, GERD Genitourinary History: Reports: None Musculoskeletal History: Reports: Other (See Below) Other Musculoskeletal History: scoliosis Neurological History: Reports: Seizure, Other (See Below) Other Neuro History: hydrocephalus congenital Psychiatric History: Reports: Anxiety, Depression, Suicidal Ideation Other Psychiatric History: mild MR Hematologic History: Reports: Other (See Below) Other Hematologic History: borderline lycopenia? Oncologic (Cancer) History: Reports: Other (See Below) Other Oncologic History: pseudolymphoma - Infectious Disease History Infectious Disease History: Reports: MRSA - Past Surgical History Head Surgeries/Procedures: Reports: None HEENT Surgical History: Reports: Myringotomy w Tube(s) GI Surgical History: Reports: Colostomy, Hernia, Abdominal, Small Bowel Other GI Surgeries/Procedures: Abd. 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) Occupation: Disabled H&P Review of Systems - Review of Systems: Review Of Systems: Unable To Obtain Exam - Exam Exam: See Below - Vital Signs Vital Signs: Last Vital Signs Temp 36.8 C 07/22/18 14:19 Pulse 73 07/22/18 14:19 Resp 18 07/22/18 14:19 BP 130/79 07/22/18 14:19 Pulse Ox 100 07/22/18 14:19 Weight: 89.131 kg - Exam General: Alert HEENT: Conjunctiva Clear, EOMI Neck: Supple Lungs: Normal Respiratory Effort GI/Abdominal Exam: Soft, Non-Tender, No Distention, Hernia (incisional hernia; prolapse of stoma about 8cm) Extremities: Normal Inspection Skin: Warm, Dry, Intact Neurological: Cranial Nerves Intact Neuro Extensive - Mental Status: Alert Consult PN Assessment/Plan Procedures: Procedures ASSAY OF CK (CPK) (04/28/18) ASSAY OF IRON (09/12/17) ASSAY OF LACTIC ACID (04/28/18) ASSAY OF LIPASE (04/27/18) ASSAY OF MAGNESIUM (05/13/18) ASSAY OF TRANSFERRIN (07/26/17) ASSAY OF VANCOMYCIN (04/28/18) ASSAY THYROID STIM HORMONE (03/12/17) BL SMEAR W/DIFF WBC COUNT (10/05/17) BLOOD CULTURE FOR BACTERIA (04/28/18) C DIFF AMPLIFIED PROBE (04/28/18) C-REACTIVE PROTEIN (04/28/18) CHYLMD PNEUM DNA AMP PROBE (04/28/18) COMPLETE CBC AUTOMATED (10/05/17) COMPLETE CBC W/AUTO DIFF WBC (05/13/18) COMPREHEN METABOLIC PANEL (04/28/18) CT ABD & PELV W/CONTRAST (04/28/18) CT ABDOMEN W/O DYE (03/23/16) CT HEAD/BRAIN W/DYE (01/25/15) CT HEAD/BRAIN W/O DYE (04/28/18) CT THORAX W/DYE (04/28/18) CULTURE OTHR SPECIMN AEROBIC (04/28/18) DETECT AGENT NOS DNA AMP (04/28/18) EEG AWAKE AND DROWSY (04/28/18) EMERGENCY DEPT VISIT (06/17/18) EMERGENCY DEPT VISIT (04/28/18) EMERGENCY DEPT VISIT (04/27/18) EMERGENCY DEPT VISIT (10/05/17) EMERGENCY DEPT VISIT (09/12/17) EMERGENCY DEPT VISIT (05/10/17) EMERGENCY DEPT VISIT (04/14/17) GLUCOSE BLOOD TEST (10/05/17) HYDRATE IV INFUSION ADD-ON (04/28/18) HYDRATION IV INFUSION INIT (04/28/18) IMMUNIZATION ADMIN (03/09/17) INFLUENZA ASSAY W/OPTIC (04/28/18) LEUKOCYTE ASSESSMENT FECAL (04/28/18) LIPID PANEL (03/12/17) M.PNEUMON DNA AMP PROBE (04/28/18) METABOLIC PANEL TOTAL CA (05/13/18) MR-STAPH DNA AMP PROBE (04/28/18) OFFICE/OUTPATIENT VISIT EST (10/19/17) OFFICE/OUTPATIENT VISIT EST (04/02/17) OFFICE/OUTPATIENT VISIT EST (03/09/17) OT EVAL MOD COMPLEX 45 MIN (04/28/18) PROCALCITONIN (PCT) (04/28/18) PT EVAL LOW COMPLEX 20 MIN (04/28/18) RBC SED RATE AUTOMATED (04/28/18) REMOVE IMPACTED EAR WAX UNI (03/02/16) RESP VIRUS 6-11 TARGETS (04/28/18) ROUTINE VENIPUNCTURE (05/20/18) SHIGA-LIKE TOXIN AG IA (04/28/18) STOOL CULTR AEROBIC BACT EA (04/28/18) TD VACC NO PRESV 7 YRS+ IM (03/09/17) THER/PROPH/DIAG INJ IV PUSH (04/27/18) THER/PROPH/DIAG INJ SC/IM (06/14/18) THER/PROPH/DIAG IV INF INIT (05/10/17) THERAPEUTIC ACTIVITIES (04/28/18) TX/PRO/DX INJ NEW DRUG ADDON (04/27/18) URINALYSIS AUTO W/SCOPE (04/28/18) VITAMIN B-12 (07/26/17) X-RAY EXAM ABDOMEN 2 VIEWS (10/19/17) X-RAY EXAM CHEST 1 VIEW (04/28/18) X-RAY EXAM CHEST 2 VIEWS (04/28/18) X-RAY EXAM SERIES ABDOMEN (03/26/18) (1) Intestinal stoma prolapse SNOMED Code(s): 644977140 Code(s): K94.19 - OTHER COMPLICATIONS OF ENTEROSTOMY Problem List Initiated/Reviewed/Updated: Yes Plan: 42 y/o man with stomal prolapse. Stoma was reduced at the bedside with gentle, manual pressure. - follow up with established surgeon for possible revision - continue sugar to stoma as needed to reduce edema if it continues to prolapse Deborah Nieves MD General surgery
== END 2018-07-22 16:48 | disposition home or self-care (01) ==
LOC: JD.ED 14:13
DX: K63.4 Enteroptosis (principal); F41.9 Anxiety disorder, unspecified; F32.9 Major depressive disorder, single episode, unspecified; Z88.8 Allergy status to other drugs, medicaments and biological substances; Z79.899 Other long term (current) drug therapy; Z91.018 Allergy to other foods
CPT/HCPCS: 99283; A9270-GY

== ENCOUNTER 2019-08-19 15:48 | Emergency (ER) | payer MEDICARE, MEDICAID ==
[2019-08-19] MEDS ORDERED: Ondansetron 4 MG Tab.DIS PO ONE (16:51)
[2019-08-19] MEDS ORDERED: Haloperidol Lactate 5 MG/ML SDV IM ONE (18:01)
[2019-08-19] MEDS ORDERED: Midazolam 1 MG/ML 2 ML SDV IM ONE (18:02)
[2019-08-19] MEDS ORDERED: Sodium Chloride 0.9% 1,000 ML IV SCH ×2 (18:15→19:45)
[2019-08-19] MEDS ORDERED: Sodium Chloride 0.9% 10 ML Syringe FLUSH PRN (18:32)
[2019-08-19] MEDS ORDERED: HYDROmorphone 0.5 MG/0.5 ML Syringe IVPUSH ONE (18:34)
--- NOTE | 2019-08-19 18:35 | EDM.PDOC ---
ED HPI GENERAL MEDICAL PROBLEM - General Chief Complaint: Abdominal Pain Stated Complaint: VOMITING Time Seen by Provider: 08/19/19 16:41 Source of Information: Reports: Patient, Family (mother primary historian), RN Notes Reviewed - History of Present Illness INITIAL COMMENTS - FREE TEXT/NARRATIVE: 43 yr old male with onset of abd pain, nausea, vomiting yesterday that has become worse today. He does have hx of ileostomy, toxic megacolon, congenital hydrocephalus, chronic abd wall hernia, lives alone but hx of at least mild MR. His last meal was yesterday AM, has not been able to eat since that time. Has been unable to keep fluids down today, feels thirsty. - Related Data Allergies Allergy/AdvReac Type Severity Reaction Status Date / Time aspartame Allergy Cannot Verified 08/19/19 16:04 Remember red dye Allergy Cannot Verified 08/19/19 16:04 Remember chloral hydrate AdvReac Hyperactivi Verified 08/19/19 16:04 ty Home Meds: Home Meds L.acidoph,Paracasei, B.lactis [Probiotic] 1 cap PO DAILY 04/14/17 [History] Cholecalciferol (Vitamin D3) [Vitamin D3] 1,000 unit PO DAILY 05/10/17 [History] Ferrous Gluconate [Iron] 236 mg PO ACBREAKFAST 03/26/18 [History] Omeprazole 20 mg PO DAILY 03/26/18 [History] Famotidine [Pepcid] 20 mg PO BID #60 tablet 05/06/18 [Rx] FLUoxetine HCl [Prozac] 60 mg PO DAILY 06/14/18 [History] Magnesium Oxide 400 mg PO DAILY 06/14/18 [History] busPIRone [Buspar] 15 mg PO BID 08/19/19 [History] Past Medical History HEENT History: Reports: Other (See Below) Other HEENT History: pt has had tubes in his ears bilaterally Cardiovascular History: Reports: PVD, Other (See Below) Other Cardiovascular History: veins stripped by Dr. Fitch Gastrointestinal History: Reports: Bowel Obstruction, Chronic Constipation, GERD Genitourinary History: Reports: None Musculoskeletal History: Reports: Other (See Below) Other Musculoskeletal History: scoliosis Neurological History: Reports: Seizure, Other (See Below) Other Neuro History: hydrocephalus congenital Psychiatric History: Reports: Anxiety, Depression, Suicidal Ideation Other Psychiatric History: mild MR Hematologic History: Reports: Other (See Below) Other Hematologic History: borderline lycopenia? Oncologic (Cancer) History: Reports: Other (See Below) Other Oncologic History: pseudolymphoma - Infectious Disease History Infectious Disease History: Reports: Chicken Pox - Past Surgical History Head Surgeries/Procedures: Reports: None HEENT Surgical History: Reports: Myringotomy w Tube(s) GI Surgical History: Reports: Colostomy, Hernia, Abdominal, Small Bowel Other GI Surgeries/Procedures: Abd. 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 Denies: Throat Pain Respiratory: Denies: Shortness of Breath, Cough Cardiovascular: Denies: Chest Pain GI/Abdominal: Reports: Abdominal Pain, Nausea, Vomiting. Denies: Hematochezia, Melena Musculoskeletal: Reports: No Symptoms Skin: Reports: No Symptoms Neurological: Reports: No Symptoms ED EXAM, NEURO - Physical Exam Exam: See Below General Appearance: Alert, Anxious, Moderate Distress Eye Exam: Bilateral Eye: PERRL Throat/Mouth: Other (oral mucosa is dry) Head Exam: Atraumatic. No: Facial Swelling Neck: Supple Respiratory/Chest: No Respiratory Distress, Lungs Clear, Normal Breath Sounds Cardiovascular: Regular Rate, Rhythm GI/Abdominal: Other (ileostomy R abd, mild diffuse mid, R and upper abd tenderness, protruding mid abd wall herniation). No: Guarding, Rebound Neurological: Alert, No Motor/Sensory Deficits Extremities: Normal Inspection, Normal Range of Motion. No: Leg Pain, Redness Skin Exam: Warm, Dry, Normal Color, No Rash Course - Vital Signs Last Recorded V/S: Last Vital Signs Temp 98.2 F 08/19/19 16:00 Pulse 82 08/19/19 16:00 Resp 16 08/19/19 16:00 BP 123/71 08/19/19 16:00 Pulse Ox 94 L 08/19/19 16:00 - Orders/Labs/Meds Orders: Active Orders 24 hr Category Date Time Status Peripheral IV Care [RC] . DIRECTED Care 08/19/19 18:32 Active Abdomen 2V AP Flat Upright [CR] Stat Exams 08/19/19 16:51 Taken CBC WITH MANUAL DIFF [HEME] Stat Lab 08/19/19 18:30 Received COMPREHENSIVE METABOLIC PN,CMP [CHEM] Stat Lab 08/19/19 18:30 Received CRP [C-REACTIVE PROTEIN] [CHEM] Routine Lab 08/19/19 18:30 Received LIPASE [CHEM] Stat Lab 08/19/19 18:30 Received Sodium Chloride 0.9% [Normal Saline] 1,000 ml Med 08/19/19 18:15 Active IV ONETIME Sodium Chloride 0.9% [Saline Flush] Med 08/19/19 18:32 Active 10 ml FLUSH ASDIRECTED PRN Peripheral IV Insertion Adult [OM.PC] Stat Oth 08/19/19 18:32 Ordered Medication Orders Sodium Chloride (Normal Saline) 1,000 mls @ 999 mls/hr IV ONETIME JOSE Last Admin: 08/19/19 18:35 Dose: 999 mls/hr Documented by: WEI Sodium Chloride (Saline Flush) 10 ml FLUSH ASDIRECTED PRN PRN Reason: Keep Vein Open Last Admin: 08/19/19 18:35 Dose: 10 ml Documented by: WEI Meds: Medications Generic Name Dose Route Start Last Admin Trade Name Freq PRN Reason Stop Dose Admin Sodium Chloride 1,000 mls @ 999 mls/hr 08/19/19 18:15 08/19/19 18:35 Normal Saline IV 999 mls/hr ONETIME JOSE Administration Sodium Chloride 10 ml 08/19/19 18:32 08/19/19 18:35 Saline Flush FLUSH 10 ml ASDIRECTED PRN Administration Keep Vein Open Discontinued Medications Generic Name Dose Route Start Last Admin Trade Name Freq PRN Reason Stop Dose Admin Haloperidol Lactate 5 mg 08/19/19 18:01 08/19/19 18:07 Haldol IM 08/19/19 18:02 5 mg ONETIME ONE Administration Hydromorphone HCl 0.5 mg 08/19/19 18:34 08/19/19 18:40 Dilaudid IVPUSH 08/19/19 18:35 0.5 mg ONETIME ONE Administration Midazolam HCl 2 mg 08/19/19 18:02 08/19/19 18:08 Versed 1 Mg/Ml IM 08/19/19 18:03 2 mg ONETIME ONE Administration Ondansetron HCl 4 mg 08/19/19 16:51 08/19/19 17:10 Zofran Odt PO 08/19/19 16:52 4 mg ONETIME ONE Administration - Re-Assessments/Exams Free Text/Narrative Re-Assessment/Exam: 08/19/19 18:54 patient initially refused lab draw or IV. We were able to get flat and upright abd X rays that does show multiple central air fluid levels. We did sedate him with haldol 5 mg IM, versed 2 mg IM and than able to get an IV, draw labs which are pending at this time. His prior surgeries have been at [facility]. Family states his last surgery, ileostomy was done by Dr Lomax about 2 yrs ago. I have discussed this with Dr Hernandes, General Surgeon promotion specialist for [facility]. He has requested he be transfered to [place] ED, Dr Rothman accepting Phys. He will be transferred by ground ambulance. Departure - Departure Time of Disposition: 18:20 Disposition: DC/Tfer to Acute Hospital 02 Condition: Serious Clinical Impression: Vomiting, Bowel obstruction Abdominal pain Qualifiers: Abdominal location: generalized Qualified Code(s): R10.84 - Generalized abdominal pain - Discharge Information Referrals: Maria Luz Brown, [employer] [Primary Care Provider] - Forms: ED Department Discharge Sepsis Event Note (ED) - Evaluation Sepsis Screening Result: No Definite Risk - Focused Exam Vital Signs: Vital Signs Temp Pulse Resp BP Pulse Ox 08/19/19 16:00 98.2 F 82 16 123/71 94 L - My Orders Last 24 Hours: My Active Orders 08/19/19 16:51 Abdomen 2V AP Flat Upright [CR] Stat 08/19/19 18:15 Sodium Chloride 0.9% [Normal Saline] 1,000 ml IV ONETIME 08/19/19 18:30 CBC WITH MANUAL DIFF [HEME] Stat COMPREHENSIVE METABOLIC PN,CMP [CHEM] Stat CRP [C-REACTIVE PROTEIN] [CHEM] Routine LIPASE [CHEM] Stat 08/19/19 18:32 Peripheral IV Care [RC] . DIRECTED Sodium Chloride 0.9% [Saline Flush] 10 ml FLUSH ASDIRECTED PRN Peripheral IV Insertion Adult [OM.PC] Stat - Assessment/Plan Last 24 Hours: My Active Orders 08/19/19 16:51 Abdomen 2V AP Flat Upright [CR] Stat 08/19/19 18:15 Sodium Chloride 0.9% [Normal Saline] 1,000 ml IV ONETIME 08/19/19 18:30 CBC WITH MANUAL DIFF [HEME] Stat COMPREHENSIVE METABOLIC PN,CMP [CHEM] Stat CRP [C-REACTIVE PROTEIN] [CHEM] Routine LIPASE [CHEM] Stat 08/19/19 18:32 Peripheral IV Care [RC] . DIRECTED Sodium Chloride 0.9% [Saline Flush] 10 ml FLUSH ASDIRECTED PRN Peripheral IV Insertion Adult [OM.PC] Stat
[2019-08-19] MEDS ORDERED: Sodium Chloride 0.9% 1,000 ML ONE (19:35)
--- NOTE | 2019-08-20 07:07 | CR ---
Abdomen: Supine and upright views of the abdomen were obtained. Comparison: Prior CT abdomen and pelvis exam of 08/05/19 and abdominal series of 03/26/18. Diffuse gaseous dilatation of small bowel is noted. Ostomy is seen overlying the right iliac wing. Surgical clips are seen within the abdomen. Degenerative change is noted within the spine. Lateral compression deformity is noted of L2 which is stable. No free air is seen. No abnormal calcifications or discrete soft tissue abnormality is seen. Impression: 1. Dilated loops of small bowel suspicious for mid to distal small bowel obstruction. Diagnostic code #3 This report was dictated in MDT
== END 2019-08-19 19:40 ==
LOC: JD.ED 15:48
DX: K56.609 Unspecified intestinal obstruction, unspecified as to partial versus complete obstruction (principal); F41.9 Anxiety disorder, unspecified; F32.9 Major depressive disorder, single episode, unspecified; K21.9 Gastro-esophageal reflux disease without esophagitis; Z91.041 Radiographic dye allergy status; Z88.8 Allergy status to other drugs, medicaments and biological substances; Z79.899 Other long term (current) drug therapy
CPT/HCPCS: 36415; 74019; 80053; 83690; 85007; 85027; 86140; 96361; 96372; 96374; 99285; A9270; J1170; J1630; J2250; J7030; 99284

== ENCOUNTER 2021-09-02 13:04 | Emergency (ER) | payer MEDICARE, MEDICAID ==
[2021-09-02 15:55] LABS: ESTIMATED GFR 95 mL/min (>60)
[2021-09-02] MEDS ORDERED: Iopamidol 612 MG/ML 100 ML Bottle IVPUSH ONE (16:28)
[2021-09-02] MEDS ORDERED: Sodium Chloride 0.9% 10 ML Syringe FLUSH PRN (16:28)
== END 2021-09-02 18:27 | disposition home or self-care (01) ==
LOC: SUPCPDRO 13:04 → JD.ED 13:04
DX: F32.9 Major depressive disorder, single episode, unspecified (principal); R10.84 Generalized abdominal pain; K21.9 Gastro-esophageal reflux disease without esophagitis; Z88.8 Allergy status to other drugs, medicaments and biological substances; Z91.048 Other nonmedicinal substance allergy status; Z79.899 Other long term (current) drug therapy
CPT/HCPCS: 36415; 74019; 74177; 80053; 81003; 83735; 85025; 86140; 99284; J3490; Q9967

== ENCOUNTER 2021-09-21 13:29 | Emergency (ER) | payer MEDICARE, MEDICAID ==
[2021-09-21] MEDS ORDERED: Acetaminophen 325 MG Tab PO ONE (14:13)
== END 2021-09-21 16:18 | disposition home or self-care (01) ==
LOC: JD.ED 13:29
DX: R07.89 Other chest pain (principal); K21.9 Gastro-esophageal reflux disease without esophagitis; Z88.8 Allergy status to other drugs, medicaments and biological substances; Z91.041 Radiographic dye allergy status; Z79.899 Other long term (current) drug therapy
CPT/HCPCS: 36415; 71046; 74019; 80053; 84484; 85025; 85379; 93005; 99285; A9270; 93010; 99284

== ENCOUNTER 2024-11-14 10:39 | Emergency (ER) | payer MEDICARE, MEDICAID ==
[2024-11-14 11:17] LABS: BASOPHILS ABSOLUTE AUTO 0.0 K/mm3 (0.0-0.2); BASOPHILS PERCENT AUTO 0.5 % (0.0-1.0); EOSINOPHILS ABSOLUTE AUTO 0.0 K/mm3 (0.0-0.4); EOSINOPHILS PERCENT AUTO 1.0 % (0.0-6.0); IMMATURE GRAN ABSOLUTE AUTO 0.00 K/mm3 (0.00-0.05); IMMATURE GRAN PERCENT AUTO 0.0 % (0.0-0.4); LYMPHOCYTES ABSOLUTE AUTO 0.7 K/mm3 (1.0-4.8); LYMPHOCYTES PERCENT AUTO 34.9 % (24.0-44.0); MEAN PLATELET VOLUME 9.4 fl (9.4-12.4); MONOCYTES ABSOLUTE AUTO 0.3 K/mm3 (0.0-0.8); MONOCYTES PERCENT AUTO 16.9 % (0.0-8.0); NEUTROPHILS ABSOLUTE AUTO 0.9 K/mm3 (1.8-7.7); NEUTROPHILS PERCENT AUTO 46.7 % (41.0-71.0); NRBC ABSOLUTE 0.00 (0.00-0.02); NRBC PERCENT 0.0 % (0.0-0.2); PLATELET COUNT,PLT 167 K/mm3 (150-400); RED BLOOD CELL COUNT 4.65 M/mm3 (4.52-5.90)
[2024-11-14 11:19] LABS: WHITE BLOOD CELL COUNT,WBC 1.95 K/mm3 (3.9-11.3)
[2024-11-14] MEDS: Sodium Chloride 0.9% 10 ML Syringe FLUSH ONE (11:31)
[2024-11-14] MEDS: Iopamidol 612 MG/ML 100 ML Bottle IVPUSH ONE (11:31)
[2024-11-14 11:38] LABS: INR 1.09
[2024-11-14 11:40] LABS: A/G RATIO 1.0 (1-2); ALANINE AMINOTRANSFERASE,ALT 20.0 U/L (16-63); ASPARTATE AMNIOTRANSFERASE,AST 14.0 U/L (15-37); BILIRUBIN TOTAL 0.6 mg/dL (0.2-1.0); BLOOD UREA NITROGEN,BUN 18.0 mg/dL (7-18); CARBON DIOXIDE,CO2 29.0 mEq/L (21-32); CHLORIDE,CL 99.0 mEq/L (98-107); CREATINE KINASE,CK 62.0 U/L (39-308); CREATININE 1.2 mg/dL (0.7-1.3); EST CRCL DRUG DOSING (CG) 91.89 mL/min; ESTIMATED GFR 75.0 mL/min (>60); GLUCOSE RANDOM 98.0 mg/dL (70-99); POTASSIUM,K 4.4 mEq/L (3.5-5.1); PROTEIN TOTAL,TP 7.5 g/dl (6.4-8.2); SODIUM,NA 135.0 mEq/L (136-145)
[2024-11-14 12:00] LABS: AMPHETAMINES SCREEN, URINE NEGATIVE (CUTOFF=500); BUPRENORPHINE SCREEN,URINE NEGATIVE (CUTOFF=10); METHADONE SCREEN, URINE NEGATIVE (CUT0FF=200); METHAMPHETAMINES SCREEN, URINE NEGATIVE (CUTOFF=500); OXYCODONE SCREEN,URINE NEGATIVE (CUT0FF=100); THC SCREEN,URINE 20 NG/ML NEGATIVE (CUTOFF=50)
== END 2024-11-14 13:34 | disposition home or self-care (01) ==
LOC: JD.ED 10:39
DX: K21.9 Gastro-esophageal reflux disease without esophagitis (principal); K56.7 Ileus, unspecified; K92.1 Melena; Z91.041 Radiographic dye allergy status; Z88.8 Allergy status to other drugs, medicaments and biological substances; Z79.899 Other long term (current) drug therapy
CPT/HCPCS: 36415; 74177; 80053; 80306; 82550; 83690; 83735; 85025; 85610; 99285; J7030; Q9967; 99284

== ENCOUNTER 2024-12-25 08:22 | Day surgery (SDC) | payer MEDICARE, MEDICAID ==
[~2024-12-25 08:22] MED LIST: Lactated Ringers 1,000 ML IV SCH; Sodium Chloride 0.9% 10 ML Syringe FLUSH PRN; Sodium Chloride 0.9% 10 ML Syringe FLUSH SCH
[2024-12-25] MEDS ORDERED: Sodium Chloride 0.9% 10 ML Syringe FLUSH SCH (09:00)
[2024-12-25] MEDS: Lactated Ringers 1,000 ML IV SCH (09:21)
[2024-12-25] MEDS ORDERED: Propofol 200 MG/20 ML SDV ONE ×3 (10:33→11:07)
[2024-12-25] MEDS ORDERED: Lactated Ringers 1,000 ML ONE (11:19)
== END 2024-12-25 12:17 | disposition home or self-care (01) ==
LOC: JD.SDS 08:22
PROVIDERS: ATTEND Surgery
DX: K29.50 Unspecified chronic gastritis without bleeding (principal); K62.5 Hemorrhage of anus and rectum; D64.9 Anemia, unspecified; E83.42 Hypomagnesemia; Z98.0 Intestinal bypass and anastomosis status; Z90.49 Acquired absence of other specified parts of digestive tract; Z79.899 Other long term (current) drug therapy
CPT/HCPCS: 43239; 45380; 88305; J2704; J7120; 00813